=== PATIENT | male | born 1965 | race Caucasian/White ===

== ENCOUNTER 2017-03-26 13:29 | Inpatient (IN) | payer OTHER ==
--- NOTE | 2017-03-26 13:52 | HP ---
Psychiatrist Admission - Data Date of interview: 03/26/17 Admission source: [address] [place] [address] Identifying data: This is the second [facility] admission for this 52 years old single male, unemployed on SSI, domiciled Medical History: Significant for hepatitis c and history of treatment for syphylis and surgery for appendectomy in 1999. Smokes cigarettes 1.5ppd Psychiatric History: Reports that years ago, he saw a psychiatrist at [facility] because of depression and suicidal ideations in the context of drug use. Claims that he was prescribed Remeron at the time. In 2013, he saw a psychiatrist at [facility], was diagnosed with PTSD, MDD and Anxiety and prescribed Seroquel 200 mg, Klonopin 2 mg and Zoloft 200 mg. Reports that he took these medications on & off till May 2016 when he was incarcerated in [facility]. Reports that he was released from there last week. Of notehe said that he was prescribed these medications at [facility] but did not take them. Denies history of previous hospitalization but claims to have had 2 previous suicidal attempts by overdose on drug and medications. At present, reports feeling "contempt" but sleeping poorly. He is not willing to take any medication including medication for insomnia Physical/Sexual Abuse/Trauma History: Denies history of physical, sexual abuse. He was reluctant to answer questions concerning DV or criminal history Allergies/Adverse Reactions: Allergies Allergy/AdvReac Type Severity Reaction Status Date / Time No Known Allergies Allergy Verified 03/21/17 18:45 Date of last physical exam: 03/19/17 Concur with the findings of this exam: Yes - Substance Abuse/Tx History Hx Alcohol Use: Yes Hx Substance Use: Yes Substance Use Type: Alcohol (Started drinking alcohol at age 19, consumes one pint of vodka & 8x 24oz of beer daily. Last drank on 03/21/17), Cocaine (Started smoking crack cocaine atage 19, consumes more than 3 grams daily. Last smoked on 03/21/17) Hx Substance Use Treatment: Yes (6 previous inpt detox & one inpt rehab admission @ [facility]) Mental Status Exam - Mental Status Exam Alert and Oriented to: Time, Place, Person Cognitive Function: Fair Patient Appearance: Well Groomed Mood: Hopeful, Euthymic Affect: Normal Range Speech Pattern: Clear Voice Loudness: Normal Thought Process: Intact, Goal Oriented Thought Disorder: Not Present Hallucinations: Denies Suicidal Ideation: Denies Homicidal Ideation: Denies Insight/Judgement: Fair Sleep: Poorly Appetite: Good Muscle strength/Tone: Normal Gait/Station: Normal Psychiatric Findings - Problem List ([place] 1, 2,3) (1) Alcohol dependence Current Visit: No Status: Active (2) Cocaine dependence Current Visit: Yes Status: Acute (3) Nicotine dependence Current Visit: No Status: Acute Qualifiers: (4) PTSD (post-traumatic stress disorder) Current Visit: No Status: Chronic (5) Substance-induced sleep disorder Current Visit: Yes Status: Acute (6) S/P appendectomy Current Visit: No Status: Resolved - Initial Treatment Plan Initial Treatment Plan: Monitor progress
[2017-03-26 13:54] VITALS: BMI 23.6
[2017-03-26] MEDS ORDERED: NICOTINE POLACRILEX 2 MG GUM BUC PRN (14:58)
[2017-03-26] MEDS ORDERED: LOPERAMIDE HCL 2 MG CAPSULE PO PRN (14:58)
[2017-03-26] MEDS ORDERED: hydrOXYzine PAMOATE 25 MG CAPSULE (FP) PO PRN (14:58)
[2017-03-26] MEDS ORDERED: P-EPHED 60MG/TRIPROLIDI 2.5MG TABLET PO PRN (14:58)
[2017-03-26] MEDS ORDERED: MAG HYDROX/AL HYDROX/SIMETH 30 ML UNIT-DOSE CUP PO PRN (14:58)
[2017-03-26] MEDS ORDERED: MAGNESIUM HYDROX 2400MG/30ML ORAL SUSPENSION 30 ML CUP PO PRN (14:58)
[2017-03-26] MEDS ORDERED: guaiFENesin/D-METHORPHAN HB 10 ML UNIT-DOSE CUPS PO PRN (14:58)
[2017-03-26] MEDS ORDERED: MAGNESIUM CITRATE 300 ML BOTTLE PO PRN (14:58)
[2017-03-26] MEDS ORDERED: MENTHOL/PHENOL 1 EACH UD MM PRN (14:58)
--- NOTE | 2017-03-26 15:04 | HP ---
[facility] Rehab Assess/Revision - Admission History Admitted to Rehab from: [facility] Date of Admission to Rehab: 03/26/17 - Vital signs Vital Signs: Vital Signs Period Temp Pulse Resp BP Sys/Patel Pulse Ox Last 24 Hr 98.8 F 76 19 114/62 - Findings Detox History & Physical reviewed: Yes Concur with findings: Yes Comments/Additional Findings: for rehab as protocol Inpatient Rehab Admission - Initial Determination Are CD services needed?: Yes Free of communicable disease: Yes Not in need of hospitalization: Yes - Rehab Admission Criteria Previous failed treatment: Yes Poor recovery environment: Yes Patient is meeting Inpatient Rehab admission criteria:: Yes
[2017-03-26] MEDS: AMOX TR/POT CLAV 875MG/125MG TABLETS (FP) PO SCH (16:53)
[2017-03-26] MEDS: THIAMINE HCL 100 MG TABLET (FP) PO SCH (21:39)
[2017-03-27] MEDS: AMOX TR/POT CLAV 875MG/125MG TABLETS (FP) PO SCH ×2 (07:49→17:35)
[2017-03-27] MEDS: PRENATAL VITAMINS W/ FOLIC ACID TABLET (FP) PO SCH (10:44)
[2017-03-27] MEDS: NICOTINE 21 MG/24 HOURS TOPICAL PATCH TD SCH (10:44)
[2017-03-27] MEDS: THIAMINE HCL 100 MG TABLET (FP) PO SCH (22:09)
[2017-03-28] MEDS: AMOX TR/POT CLAV 875MG/125MG TABLETS (FP) PO SCH ×2 (07:17→17:28)
[2017-03-28] MEDS: PRENATAL VITAMINS W/ FOLIC ACID TABLET (FP) PO SCH (10:29)
[2017-03-28] MEDS: NICOTINE 21 MG/24 HOURS TOPICAL PATCH TD SCH (10:29)
[2017-03-28] MEDS: ACETAMINOPHEN 325 MG TABLET (FP) PO PRN ×2 (11:02→19:56)
[2017-03-28] MEDS: THIAMINE HCL 100 MG TABLET (FP) PO SCH (22:11)
[2017-03-29] MEDS: PRENATAL VITAMINS W/ FOLIC ACID TABLET (FP) PO SCH (10:49)
[2017-03-29] MEDS: NICOTINE 21 MG/24 HOURS TOPICAL PATCH TD SCH (10:50)
[2017-03-29] MEDS: THIAMINE HCL 100 MG TABLET (FP) PO SCH (22:14)
[2017-03-30] MEDS: PRENATAL VITAMINS W/ FOLIC ACID TABLET (FP) PO SCH (10:13)
[2017-03-30] MEDS: NICOTINE 21 MG/24 HOURS TOPICAL PATCH TD SCH (10:14)
[2017-03-30] MEDS: THIAMINE HCL 100 MG TABLET (FP) PO SCH (21:01)
[2017-03-31] MEDS: NICOTINE 21 MG/24 HOURS TOPICAL PATCH TD SCH (10:14)
[2017-03-31] MEDS: PRENATAL VITAMINS W/ FOLIC ACID TABLET (FP) PO SCH (10:14)
[2017-03-31] MEDS: ACETAMINOPHEN 325 MG TABLET (FP) PO PRN (18:52)
[2017-03-31] MEDS: THIAMINE HCL 100 MG TABLET (FP) PO SCH (22:21)
[2017-04-01] MEDS: NICOTINE 21 MG/24 HOURS TOPICAL PATCH TD SCH (10:22)
[2017-04-01] MEDS: PRENATAL VITAMINS W/ FOLIC ACID TABLET (FP) PO SCH (10:22)
[2017-04-01] MEDS: THIAMINE HCL 100 MG TABLET (FP) PO SCH (22:13)
[2017-04-02] MEDS: NICOTINE 21 MG/24 HOURS TOPICAL PATCH TD SCH (10:12)
[2017-04-02] MEDS: PRENATAL VITAMINS W/ FOLIC ACID TABLET (FP) PO SCH (10:12)
[2017-04-02] MEDS: THIAMINE HCL 100 MG TABLET (FP) PO SCH (22:15)
[2017-04-03] MEDS: PRENATAL VITAMINS W/ FOLIC ACID TABLET (FP) PO SCH (10:39)
[2017-04-03] MEDS: NICOTINE 21 MG/24 HOURS TOPICAL PATCH TD SCH (10:39)
[2017-04-03] MEDS: THIAMINE HCL 100 MG TABLET (FP) PO SCH (22:23)
[2017-04-04] MEDS: NICOTINE 21 MG/24 HOURS TOPICAL PATCH TD SCH (10:00)
[2017-04-04] MEDS: PRENATAL VITAMINS W/ FOLIC ACID TABLET (FP) PO SCH (10:00)
[2017-04-04] MEDS: ACETAMINOPHEN 325 MG TABLET (FP) PO PRN (11:45)
[2017-04-04] MEDS: THIAMINE HCL 100 MG TABLET (FP) PO SCH (22:15)
[2017-04-05] MEDS: NICOTINE 21 MG/24 HOURS TOPICAL PATCH TD SCH (10:07)
[2017-04-05] MEDS: PRENATAL VITAMINS W/ FOLIC ACID TABLET (FP) PO SCH (10:07)
[2017-04-05] MEDS: IBUPROFEN 400 MG TABLET (FP) PO PRN (11:43)
[2017-04-05] MEDS: THIAMINE HCL 100 MG TABLET (FP) PO SCH (21:48)
[2017-04-05] MEDS: ACETAMINOPHEN 325 MG TABLET (FP) PO PRN (21:48)
[2017-04-06] MEDS: NICOTINE 21 MG/24 HOURS TOPICAL PATCH TD SCH (10:06)
[2017-04-06] MEDS: PRENATAL VITAMINS W/ FOLIC ACID TABLET (FP) PO SCH (10:06)
[2017-04-06] MEDS: IBUPROFEN 400 MG TABLET (FP) PO PRN (15:24)
[2017-04-06] MEDS: THIAMINE HCL 100 MG TABLET (FP) PO SCH (21:51)
[2017-04-07] MEDS: PRENATAL VITAMINS W/ FOLIC ACID TABLET (FP) PO SCH (10:19)
[2017-04-07] MEDS: NICOTINE 21 MG/24 HOURS TOPICAL PATCH TD SCH (10:19)
[2017-04-07] MEDS: THIAMINE HCL 100 MG TABLET (FP) PO SCH (22:13)
[2017-04-07] MEDS: IBUPROFEN 400 MG TABLET (FP) PO PRN (22:43)
[2017-04-08] MEDS: NICOTINE 21 MG/24 HOURS TOPICAL PATCH TD SCH (09:58)
[2017-04-08] MEDS: PRENATAL VITAMINS W/ FOLIC ACID TABLET (FP) PO SCH (09:58)
[2017-04-08] MEDS: ACETAMINOPHEN 325 MG TABLET (FP) PO PRN (12:01)
[2017-04-08] MEDS: THIAMINE HCL 100 MG TABLET (FP) PO SCH (22:14)
[2017-04-09] MEDS: ACETAMINOPHEN 325 MG TABLET (FP) PO PRN (09:01)
[2017-04-09] MEDS: PRENATAL VITAMINS W/ FOLIC ACID TABLET (FP) PO SCH (10:10)
[2017-04-09] MEDS: NICOTINE 21 MG/24 HOURS TOPICAL PATCH TD SCH (10:10)
[2017-04-09] MEDS: THIAMINE HCL 100 MG TABLET (FP) PO SCH (21:54)
[2017-04-10] MEDS: NICOTINE 21 MG/24 HOURS TOPICAL PATCH TD SCH (10:01)
[2017-04-10] MEDS: PRENATAL VITAMINS W/ FOLIC ACID TABLET (FP) PO SCH (10:01)
[2017-04-10] MEDS: THIAMINE HCL 100 MG TABLET (FP) PO SCH (21:55)
[2017-04-11] MEDS: NICOTINE 21 MG/24 HOURS TOPICAL PATCH TD SCH (10:23)
[2017-04-11] MEDS: PRENATAL VITAMINS W/ FOLIC ACID TABLET (FP) PO SCH (10:24)
[2017-04-11] MEDS: ACETAMINOPHEN 325 MG TABLET (FP) PO PRN (13:31)
[2017-04-11] MEDS: THIAMINE HCL 100 MG TABLET (FP) PO SCH (23:12)
[2017-04-12] MEDS: NICOTINE 21 MG/24 HOURS TOPICAL PATCH TD SCH (10:01)
[2017-04-12] MEDS: PRENATAL VITAMINS W/ FOLIC ACID TABLET (FP) PO SCH (10:01)
[2017-04-12] MEDS: THIAMINE HCL 100 MG TABLET (FP) PO SCH (22:09)
[2017-04-13] MEDS: PRENATAL VITAMINS W/ FOLIC ACID TABLET (FP) PO SCH (10:13)
[2017-04-13] MEDS: NICOTINE 21 MG/24 HOURS TOPICAL PATCH TD SCH (10:13)
[2017-04-13] MEDS: ACETAMINOPHEN 325 MG TABLET (FP) PO PRN (14:01)
[2017-04-13] MEDS: THIAMINE HCL 100 MG TABLET (FP) PO SCH (22:21)
[2017-04-14] MEDS: ACETAMINOPHEN 325 MG TABLET (FP) PO PRN ×2 (08:25→19:15)
[2017-04-14] MEDS: PRENATAL VITAMINS W/ FOLIC ACID TABLET (FP) PO SCH (10:05)
[2017-04-14] MEDS: NICOTINE 21 MG/24 HOURS TOPICAL PATCH TD SCH (10:05)
[2017-04-14] MEDS: THIAMINE HCL 100 MG TABLET (FP) PO SCH (21:48)
[2017-04-15] MEDS: PRENATAL VITAMINS W/ FOLIC ACID TABLET (FP) PO SCH (10:16)
[2017-04-15] MEDS: NICOTINE 21 MG/24 HOURS TOPICAL PATCH TD SCH (10:16)
[2017-04-15] MEDS: ACETAMINOPHEN 325 MG TABLET (FP) PO PRN (16:02)
[2017-04-15] MEDS: THIAMINE HCL 100 MG TABLET (FP) PO SCH (22:01)
[2017-04-16] MEDS: NICOTINE 21 MG/24 HOURS TOPICAL PATCH TD SCH (10:07)
[2017-04-16] MEDS: PRENATAL VITAMINS W/ FOLIC ACID TABLET (FP) PO SCH (10:07)
[2017-04-16] MEDS: ACETAMINOPHEN 325 MG TABLET (FP) PO PRN ×2 (11:11→18:12)
--- NOTE | 2017-04-16 15:51 | PN ---
Psychiatric Progress Note Vital Signs: Vital Signs Period Temp Pulse Resp BP Sys/Patel Pulse Ox Last 24 Hr 98.3 F 59 18-18 110/62 Date of Session: 04/16/17 Chief Complaint:: Discharge visit Current Medications: Active Medications Generic Name Dose Route Start Last Admin Trade Name Freq PRN Reason Stop Dose Admin Acetaminophen 650 mg 03/26/17 14:58 04/16/17 11:11 Tylenol - PO 650 mg Q4H PRN Administration FEVER OR PAIN Al Hydroxide/Mg Hydroxide 30 ml 03/26/17 14:58 Mylanta Oral Suspension - PO Q6H PRN DYSPEPSIA Eucalyptus/Menthol/Phenol/Sorbitol 1 each 03/26/17 14:58 Cepastat Lozenge - MM Q4H PRN SORE THROAT Guaifenesin 10 ml 03/26/17 14:58 Robitussin Dm - PO Q6H PRN COUGH Hydroxyzine Pamoate 25 mg 03/26/17 14:58 Vistaril - PO Q4H PRN AGITATION Ibuprofen 400 mg 03/26/17 14:58 04/07/17 22:43 Motrin - PO 400 mg Q6H PRN Administration PAIN Loperamide HCl 4 mg 03/26/17 14:58 Imodium - PO Q6H PRN DIARRHEA Magnesium Citrate 300 ml 03/26/17 14:58 Citroma - PO Q48H PRN CONSTIPATION Magnesium Hydroxide 30 ml 03/26/17 14:58 Milk Of Magnesia - PO DAILY PRN CONSTIPATION Nicotine 21 mg 03/27/17 10:00 04/16/17 10:07 Nicoderm Patch - TD Not Given DAILY CRYSTAL Nicotine Polacrilex 2 mg 03/26/17 14:58 Nicorette Gum - BUC Q2H PRN NICOTINE REPLACEMENT RX Multivit/Folic Acid/Iron 1 tab 03/27/17 10:00 04/16/17 10:07 Vitamins ([facility]) - PO Not Given DAILY CRYSTAL Pseudoephedrine/Triprolidine 1 combo 03/26/17 14:58 Actifed - PO TID PRN NASAL CONGESTION Thiamine HCl 100 mg 03/26/17 22:00 04/15/17 22:01 Vitamin B1 - PO Not Given HS CRYSTAL Current Side Effect: No Lab tests ordered: No Lab tests reviewed: Yes Provider note:: [place] Total face to face time:: 30 Psychiatric Treatment Plan - Problem List (1) Cocaine dependence Current Visit: Yes (2) Substance-induced sleep disorder Current Visit: Yes (3) Alcohol dependence Current Visit: Yes (4) Nicotine dependence Current Visit: Yes Qualifiers:
[2017-04-16] MEDS: THIAMINE HCL 100 MG TABLET (FP) PO SCH (21:46)
[2017-04-16] MEDS: IBUPROFEN 400 MG TABLET (FP) PO PRN (23:06)
[2017-04-17 06:44] VITALS: BP 106/66; PULSE 86; TEMP 97.4
[2017-04-17] MEDS: PRENATAL VITAMINS W/ FOLIC ACID TABLET (FP) PO SCH (09:51)
[2017-04-17] MEDS: NICOTINE 21 MG/24 HOURS TOPICAL PATCH TD SCH (09:51)
== END 2017-04-17 10:00 | disposition home or self-care (01) | DRG 772 ==
LOC: YASAS 13:29 → Y3W 13:32
PROVIDERS: ADMIT Psychiatry & Neurology Psychiatry; ATTEND Psychiatry & Neurology Psychiatry
PROC: HZ42ZZZ Group Counseling for Substance Abuse Treatment, Cognitive-Behavioral (ICD-10-PCS; principal; 2017-03-26)
DX: F10.20 Alcohol dependence, uncomplicated (principal); F14.20 Cocaine dependence, uncomplicated; F17.210 Nicotine dependence, cigarettes, uncomplicated; F19.282 Other psychoactive substance dependence with psychoactive substance-induced sleep disorder; F43.10 Post-traumatic stress disorder, unspecified; Z86.79 Personal history of other diseases of the circulatory system; Z90.89 Acquired absence of other organs; Z87.438 Personal history of other diseases of male genital organs

== ENCOUNTER 2018-05-11 13:07 | Inpatient (IN) | payer OTHER ==
[2018-05-11 13:58] VITALS: BMI 22.2
--- NOTE | 2018-05-11 15:17 | HP ---
CIWA Score Nausea/Vomitin Muscle Tremors: 2 Anxiety: 2 Agitation: 2 Paroxysmal Sweats: 1-Minimal Palms Moist Orientation: 0-Oriented Tacttile Disturbances: 1-Very Mild Itch/Numbness Auditory Disturbances: 1-Very Mild Visual Disturbances: 0-None Headache: 2-Mild CIWA-Ar Total Score: 13 - Admission Criteria [facility] Guidelines: Admission for Medically Managed Detox: Requires at least one of the followin. CIWA greater than 12 2. Seizures within the past 24 hours 3. Delirium tremens within the past 24 hours 4. Hallucinations within the past 24 hours 5. Acute intervention needed for co occurring medical disorder 6. Acute intervention needed for co occurring psychiatric disorder 7. Severe withdrawal that cannot be handled at a lower level of care (continued vomiting, continued diarrhea, abnormal vital signs) requiring intravenous medication and/or fluids 8. Patient presents the following: CIWA greater than 12 Admission Criteria Met: Admission criteria met Admission ROS [facility] - HPI Chief Complaint: i need help to stop drinking alcohol,cocaine Allergies/Adverse Reactions: Allergies Allergy/AdvReac Type Severity Reaction Status Date / Time No Known Allergies Allergy Verified 05/11/18 14:29 History of Present Illness: this 53 years old male with alcohol and cocaine dependence,seeking detox, withdrawal symptom,last detox [facility] 03/21/17 to 03/26/17,rehab 03/26/17 to syncope type 2 dm no med nicotine dependence positive ppd depression no med Exam Limitations: No Limitations - Ebola screening Have you traveled outside of the country in the last 21 days: No (N) Have you had contact with anyone from an Ebola affected area: No Have you been sick,other than usual withdrawal symptoms: No Do you have a fever: No - Review of Systems Constitutional: Loss of Appetite, Malaise, Night Sweats, Changes in sleep, Weakness, Unintentional Wgt. Loss EENT: reports: Nose Congestion Respiratory: reports: No Symptoms reported Cardiac: reports: No Symptoms Reported GI: reports: Nausea, Poor Appetite, Abdominal cramping : reports: No Symptoms Reported Musculoskeletal: reports: Back Pain, Muscle Pain Integumentary: reports: Dryness Endocrine: reports: No Symptoms Reported, Other (type 2 dm no med) Hematology: reports: No Symptoms Reported Psychiatric: reports: No Sypmtoms Reported, Judgement Intact, Mood/Affect Appropiate, Orientated x3, Anxious, Depressed (no med) Patient History - Patient Medical History Hx Anemia: No Hx Asthma: No Hx Chronic Obstructive Pulmonary Disease (COPD): No Hx Cancer: No Hx Cardiac Disorders: No Hx Congestive Heart Failure: No Hx Hypertension: No Hx Hypercholesterolemia: No Hx Pacemaker: No HX Cerebrovascular Accident: No Hx Seizures: No Hx Dementia: No Hx Diabetes: Yes (currently not on treatment,diet control) Hx Gastrointestinal Disorders: No Hx Liver Disease: No Hx Genitourinary Disorders: No Hx Sexually Transmitted Disorders: No Hx Renal Disease (ESRD): No Hx Thyroid Disease: No Hx Human Immunodeficiency Virus (HIV): No (last 03/05 negative) Hx Hepatitis C: No Hx Depression: Yes (no med) Hx Suicide Attempt: No Hx Bipolar Disorder: No Hx Schizophrenia: No Other Medical History: no suicidal,no homicidal - Patient Surgical History Past Surgical History: Yes Hx Neurologic Surgery: No Hx Cataract Extraction: No Hx Cardiac Surgery: No Hx Lung Surgery: No Hx Breast Surgery: No Hx Breast Biopsy: No Hx Abdominal Surgery: No Hx Appendectomy: Yes (IN 1999) Hx Cholecystectomy: No Hx Genitourinary Surgery: No Hx Section: No Hx Orthopedic Surgery: No Hx Hysterectomy: No Anesthesia Reaction: No - PPD History Previous Implant?: Yes Documented Results: Positive w/o proof Results: CXR(-)03/2017 PPD to be Administered?: No - Smoking Cessation Smoking history: Current every day smoker Have you smoked in the past 12 months: Yes Aproximately how many cigarettes per day: 20 Cigars Per Day: 0 Hx Chewing Tobacco Use: No Initiated information on smoking cessation: Yes 'Breaking Loose' booklet given: 05/11/18 - Substance & Tx. History Hx Alcohol Use: Yes Hx Substance Use: Yes Substance Use Type: Alcohol, Cocaine Hx Substance Use Treatment: Yes ([facility] 03/21/17 to 03/26/17 to rehab 03/26/17 to 04/17/17 ) - Substances Abused Crack Route: Smoking Frequency: 1-2 times per week Amount used: $100 Age of first use: 35 Date of Last Use: 05/10/18 Alcohol--rum/beer Route: Oral Frequency: Daily Amount used: 1 pt./2-3 6 pks. Age of first use: 19 Date of Last Use: 05/10/18 Family Disease History - Family Disease History Family Disease History: Diabetes: Mother (), Brother, [place]: Father ( throat ), Other: Mother, Sister (NO SISTER) Admission Physical Exam [facility] - Vital Signs Vital Signs: Vital Signs - 24 hr 05/11/18 13:55 Temperature 96.4 F L Pulse Rate 68 Respiratory 19 Rate Blood Pressure 128/63 - Physical General Appearance: Yes: Moderate Distress, Tremorous, Irritable, Sweating, Anxious HEENTM: Yes: Normal ENT Inspection, [place], Pharynx Normal Respiratory: Yes: Lungs Clear, Normal Breath Sounds, No Respiratory Distress Neck: Yes: Within Normal Limits, Supple, Trachea in good position Breast: Yes: Within Normal Limits Cardiology: Yes: Within Normal Limits, Regular Rhythm, Regular Rate, S1, S2 Abdominal: Yes: Within Normal Limits, Normal Bowel Sounds, Non Tender, Soft, Surgical Scar (s/p appendectomy) Genitourinary: Yes: Within Normal Limits Back: Yes: Normal Inspection, Muscle Spasm Musculoskeletal: Yes: Back pain, Muscle Pain Extremities: Yes: Within Normal Limits, Normal Range of Motion, Tremors 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: Yes: datapower developer II-XII NML intact, Fully Oriented, Alert, Motor Strength 5/5 Integumentary: Yes: Dry Lymphatic: Yes: Within Normal Limits - Diagnostic (1) Alcohol dependence with uncomplicated withdrawal Current Visit: No Status: Acute (2) Cocaine dependence Current Visit: No Status: Acute (3) Positive PPD Current Visit: Yes Status: Acute (4) Nicotine dependence Current Visit: No Status: Acute Qualifiers: (5) Weight loss Current Visit: Yes Status: Acute (6) S/P appendectomy Current Visit: Yes Status: Acute Cleared for Admission [facility] - Detox or Rehab [facility] Level of Care: Medically Managed Detox Regimen/Protocol: Librium [facility] Breath Alcohol Content Breath Alcohol Content: 0 Urine Drug Screen - Results Drug Screen Negative: No Urine Drug Screen Results: MARITA-Cocaine
[2018-05-11] MEDS ORDERED: MAGNESIUM HYDROX 2400MG/30ML ORAL SUSPENSION 30 ML CUP PO PRN (15:32)
[2018-05-11] MEDS ORDERED: guaiFENesin/D-METHORPHAN HB 10 ML UNIT-DOSE CUPS PO PRN (15:32)
[2018-05-11] MEDS ORDERED: P-EPHED 60MG/TRIPROLIDI 2.5MG TABLET PO PRN (15:32)
[2018-05-11] MEDS ORDERED: ACETAMINOPHEN 325 MG TABLET (FP) PO PRN (15:32)
[2018-05-11] MEDS ORDERED: MAGNESIUM CITRATE 300 ML BOTTLE PO PRN (15:32)
[2018-05-11] MEDS ORDERED: MAG HYDROX/AL HYDROX/SIMETH 30 ML UNIT-DOSE CUP PO PRN (15:32)
[2018-05-11] MEDS ORDERED: LOPERAMIDE HCL 2 MG CAPSULE PO PRN (15:32)
[2018-05-11] MEDS ORDERED: hydrOXYzine PAMOATE 25 MG CAPSULE (FP) PO PRN (15:32)
[2018-05-11] MEDS ORDERED: chlordiazePOXIDE HCL 25 MG CAPSULE PO PRN (15:32)
[2018-05-11] MEDS ORDERED: MENTHOL/PHENOL 1 EACH UD MM PRN (15:32)
[2018-05-11] MEDS: chlordiazePOXIDE HCL 25 MG CAPSULE PO SCH ×2 (16:36→22:29)
[2018-05-11 17:21] LABS: URINE APPEARANCE CLEAR; URINE BILIRUBIN NEGATIVE (<2.0 mg/dL); URINE COLOR YELLOW; URINE GLUCOSE (UA) NEGATIVE (NEGATIVE); URINE KETONE NEGATIVE (NEGATIVE); URINE LEUK ESTERASE NEGATIVE (NEGATIVE); URINE NITRITE NEGATIVE (NEGATIVE); URINE PROTEIN NEGATIVE (NEGATIVE); URINE UROBILINOGEN 4.0 E.U/dl mg/dL (0.2-1.0)
[2018-05-11] MEDS ORDERED: MELATONIN 5 MG TABLETS PO PRN (22:00)
[2018-05-11] MEDS: THIAMINE HCL 100 MG TABLET (FP) PO SCH (22:29)
[2018-05-12] MEDS: chlordiazePOXIDE HCL 25 MG CAPSULE PO SCH ×4 (06:23→22:29)
[2018-05-12] MEDS: PRENATAL VITAMINS W/ FOLIC ACID TABLET (FP) PO SCH (10:32)
[2018-05-12 11:04] LABS: HEMATOCRIT 43.5 % (35.4-49); HEMOGLOBIN 14.1 GM/dL (11.7-16.9); MCH 29.2 pg (25.7-33.7); MCHC 32.4 g/dl (32.0-35.9); MEAN CELL VOLUME 90.1 fl (80-96); MEAN PLT VOLUME 9.9 fl (7.5-11.1); PLATELET COUNT 233 K/MM3 (134-434); RBC 4.83 M/mm3 (4.00-5.60); RDW 13.6 % (11.9-15.9); WHITE BLOOD COUNT 6.5 K/mm3 (4.0-10.0)
[2018-05-12 11:12] LABS: ALBUMIN 3.5 g/dl (3.4-5.0); ALK PHOS 55 U/L (45-117); ANION GAP 5 MMOL/L (8-16); BILIRUBIN,TOTAL 0.4 mg/dL (0.2-1); BLOOD UREA NITROGEN 19 mg/dL (7-18); CALCIUM 8.8 mg/dL (8.5-10.1); CHLORIDE 108 mmol/L (98-107); CO2 30 mmol/L (21-32); CREATININE 1.1 mg/dL (0.55-1.3); GLUCOSE,RANDOM 86 mg/dL (74-106); POTASSIUM 4.1 mmol/L (3.5-5.1); SGOT/AST 13 U/L (15-37); SGPT/ALT 17 U/L (13-61); SODIUM 143 mmol/L (136-145); TOT PROT 6.1 g/dl (6.4-8.2)
--- NOTE | 2018-05-12 15:19 | PN ---
S CIWA - CIWA Score Nausea/Vomitin Muscle Tremors: 4-Moderate,w/Arms Extend Anxiety: 4-Mod. Anxious/Guarded Agitation: 4-Moderately Restless Paroxysmal Sweats: 3 Orientation: 0-Oriented Tacttile Disturbances: 0-None Auditory Disturbances: 0-None Visual Disturbances: 0-None Headache: 0-None Present CIWA-Ar Total Score: 17 [facility] Progress Note (SOAP) Subjective: Anxious, interrupted sleep Objective: 05/12/18 15:16 Last Vital Signs Temp Pulse Resp BP Pulse Ox 97.4 F L 62 18 97/56 L 05/12/18 13:22 05/12/18 13:22 05/12/18 13:22 05/12/18 13:22 Hypotension noted 97/56 Laboratory Tests 05/11/18 05/11/18 05/12/18 14:54 16:33 07:50 WBC 6.5 RBC 4.83 Hgb 14.1 Hct 43.5 D MCV 90.1 MCH 29.2 MCHC 32.4 RDW 13.6 Plt Count 233 MPV 9.9 Sodium Potassium Chloride Carbon Dioxide Anion Gap BUN Creatinine Creat Clearance w eGFR POC Glucometer 82 Random Glucose Calcium Total Bilirubin AST ALT Alkaline Phosphatase Total Protein Albumin Urine Color Yellow Urine Appearance Clear Urine pH 5.0 Ur Specific [place] 1.017 Urine Protein Negative Urine Glucose (UA) Negative Urine Ketones Negative Urine Blood Negative Urine Nitrite Negative Urine Bilirubin Negative Urine Urobilinogen 4.0 e.u/dl Ur Leukocyte Esterase Negative RPR Titer HIV 1&2 Antibody Screen HIV P24 Antigen 05/12/18 05/12/18 05/12/18 07:50 07:50 08:40 WBC RBC Hgb Hct MCV MCH MCHC RDW Plt Count MPV Sodium 143 Potassium 4.1 Chloride 108 H Carbon Dioxide 30 Anion Gap 5 L BUN 19 H Creatinine 1.1 Creat Clearance w eGFR > 60 POC Glucometer Random Glucose 86 Calcium 8.8 Total Bilirubin 0.4 AST 13 L ALT 17 Alkaline Phosphatase 55 Total Protein 6.1 L Albumin 3.5 Urine Color Urine Appearance Urine pH Ur Specific [place] Urine Protein Urine Glucose (UA) Urine Ketones Urine Blood Urine Nitrite Urine Bilirubin Urine Urobilinogen Ur Leukocyte Esterase RPR Titer Nonreactive HIV 1&2 Antibody Screen Negative HIV P24 Antigen Negative Labs reviewed Assessment: 05/12/18 15:17 Withdrawal symptoms Hypotension noted Plan: Continue detox Hypotension: asymptomatic, encouraged PO water intake
[2018-05-12] MEDS: THIAMINE HCL 100 MG TABLET (FP) PO SCH (22:29)
[2018-05-13] MEDS: chlordiazePOXIDE HCL 25 MG CAPSULE PO SCH ×2 (06:07→10:12)
[2018-05-13] MEDS: PRENATAL VITAMINS W/ FOLIC ACID TABLET (FP) PO SCH (10:12)
[2018-05-13] MEDS: IBUPROFEN 400 MG TABLET (FP) PO PRN ×3 (11:48→22:17)
--- NOTE | 2018-05-13 15:02 | PN ---
S CIWA - CIWA Score Nausea/Vomitin-No Nausea/No Vomiting Muscle Tremors: None Anxiety: 4-Mod. Anxious/Guarded Agitation: 3 Paroxysmal Sweats: No Perspiration Orientation: 0-Oriented Tacttile Disturbances: 2-Mild Itch/Numbness/Burn Auditory Disturbances: 0-None Visual Disturbances: 1-Very Mild Sensitivity Headache: 3-Moderate CIWA-Ar Total Score: 13 S Progress Note (SOAP) Subjective: Body Aches, H/A, Anxious. Objective: PATIENT A & O X 3, OBSERVED AMBULATING ON UNIT. NO ACUTE DISTRESS. 05/13/18 15:02 Vital Signs Temperature 98.4 F 05/13/18 13:30 Pulse Rate 64 05/13/18 13:30 Respiratory Rate 16 05/13/18 13:30 Blood Pressure 99/62 05/13/18 13:30 O2 Sat by Pulse Oximetry (%) Laboratory Tests 05/11/18 05/11/18 05/11/18 14:54 14:55 16:33 WBC RBC Hgb Hct MCV MCH MCHC RDW Plt Count MPV Sodium Potassium Chloride Carbon Dioxide Anion Gap BUN Creatinine Creat Clearance w eGFR POC Glucometer 151 82 Random Glucose Calcium Total Bilirubin AST ALT Alkaline Phosphatase Total Protein Albumin Urine Color Yellow Urine Appearance Clear Urine pH 5.0 Ur Specific [place] 1.017 Urine Protein Negative Urine Glucose (UA) Negative Urine Ketones Negative Urine Blood Negative Urine Nitrite Negative Urine Bilirubin Negative Urine Urobilinogen 4.0 e.u/dl Ur Leukocyte Esterase Negative RPR Titer HIV 1&2 Antibody Screen HIV P24 Antigen 05/12/18 05/12/18 05/12/18 07:50 07:50 07:50 WBC 6.5 RBC 4.83 Hgb 14.1 Hct 43.5 D MCV 90.1 MCH 29.2 MCHC 32.4 RDW 13.6 Plt Count 233 MPV 9.9 Sodium 143 Potassium 4.1 Chloride 108 H Carbon Dioxide 30 Anion Gap 5 L BUN 19 H Creatinine 1.1 Creat Clearance w eGFR > 60 POC Glucometer Random Glucose 86 Calcium 8.8 Total Bilirubin 0.4 AST 13 L ALT 17 Alkaline Phosphatase 55 Total Protein 6.1 L Albumin 3.5 Urine Color Urine Appearance Urine pH Ur Specific [place] Urine Protein Urine Glucose (UA) Urine Ketones Urine Blood Urine Nitrite Urine Bilirubin Urine Urobilinogen Ur Leukocyte Esterase RPR Titer Nonreactive HIV 1&2 Antibody Screen HIV P24 Antigen 05/12/18 08:40 WBC RBC Hgb Hct MCV MCH MCHC RDW Plt Count MPV Sodium Potassium Chloride Carbon Dioxide Anion Gap BUN Creatinine Creat Clearance w eGFR POC Glucometer Random Glucose Calcium Total Bilirubin AST ALT Alkaline Phosphatase Total Protein Albumin Urine Color Urine Appearance Urine pH Ur Specific [place] Urine Protein Urine Glucose (UA) Urine Ketones Urine Blood Urine Nitrite Urine Bilirubin Urine Urobilinogen Ur Leukocyte Esterase RPR Titer HIV 1&2 Antibody Screen Negative HIV P24 Antigen Negative LABS NOTED. Assessment: 05/13/18 15:03 WITHDRAWAL SYMPTOMS. Plan: CONTINUE DETOX. INCREASE DAILY PO FLUID INTAKE.
[2018-05-13] MEDS: chlordiazePOXIDE 5 MG CAPSULE PO SCH ×2 (17:15→22:18)
[2018-05-13] MEDS: THIAMINE HCL 100 MG TABLET (FP) PO SCH (22:18)
[2018-05-14] MEDS: chlordiazePOXIDE 5 MG CAPSULE PO SCH ×2 (06:13→11:33)
[2018-05-14] MEDS: IBUPROFEN 400 MG TABLET (FP) PO PRN ×2 (08:55→22:20)
[2018-05-14] MEDS: PRENATAL VITAMINS W/ FOLIC ACID TABLET (FP) PO SCH (11:33)
--- NOTE | 2018-05-14 11:51 | PN ---
[facility] Progress Note (SOAP) Subjective: feeling better sleep better no tremor less sweat discuss aftercare with staff Objective: 05/14/18 11:50 Vital Signs Temperature 97.1 F L 05/14/18 09:07 Pulse Rate 63 05/14/18 09:07 Respiratory Rate 18 05/14/18 09:07 Blood Pressure 92/56 L 05/14/18 09:07 O2 Sat by Pulse Oximetry (%) Laboratory Last Values WBC 6.5 K/mm3 (4.0-10.0) 05/12/18 07:50 RBC 4.83 M/mm3 (4.00-5.60) 05/12/18 07:50 Hgb 14.1 GM/dL (11.7-16.9) 05/12/18 07:50 Hct 43.5 % (35.4-49) D 05/12/18 07:50 MCV 90.1 fl (80-96) 05/12/18 07:50 MCH 29.2 pg (25.7-33.7) 05/12/18 07:50 MCHC 32.4 g/dl (32.0-35.9) 05/12/18 07:50 RDW 13.6 % (11.9-15.9) 05/12/18 07:50 Plt Count 233 K/MM3 (134-434) 05/12/18 07:50 MPV 9.9 fl (7.5-11.1) 05/12/18 07:50 Sodium 143 mmol/L (136-145) 05/12/18 07:50 Potassium 4.1 mmol/L (3.5-5.1) 05/12/18 07:50 Chloride 108 mmol/L (98-107) H 05/12/18 07:50 Carbon Dioxide 30 mmol/L (21-32) 05/12/18 07:50 Anion Gap 5 MMOL/L (8-16) L 05/12/18 07:50 BUN 19 mg/dL (7-18) H 05/12/18 07:50 Creatinine 1.1 mg/dL (0.55-1.3) 05/12/18 07:50 Creat Clearance w eGFR > 60 (>60) 05/12/18 07:50 POC Glucometer 82 UNITS (80-120) 05/11/18 16:33 Random Glucose 86 mg/dL (74-106) 05/12/18 07:50 Calcium 8.8 mg/dL (8.5-10.1) 05/12/18 07:50 Total Bilirubin 0.4 mg/dL (0.2-1) 05/12/18 07:50 AST 13 U/L (15-37) L 05/12/18 07:50 ALT 17 U/L (13-61) 05/12/18 07:50 Alkaline Phosphatase 55 U/L (45-117) 05/12/18 07:50 Total Protein 6.1 g/dl (6.4-8.2) L 05/12/18 07:50 Albumin 3.5 g/dl (3.4-5.0) 05/12/18 07:50 Urine Color Yellow 05/11/18 14:54 Urine Appearance Clear 05/11/18 14:54 Urine pH 5.0 (5.0-8.0) 05/11/18 14:54 Ur Specific [place] 1.017 (1.010-1.035) 05/11/18 14:54 Urine Protein Negative (NEGATIVE) 05/11/18 14:54 Urine Glucose (UA) Negative (NEGATIVE) 05/11/18 14:54 Urine Ketones Negative (NEGATIVE) 05/11/18 14:54 Urine Blood Negative (NEGATIVE) 05/11/18 14:54 Urine Nitrite Negative (NEGATIVE) 05/11/18 14:54 Urine Bilirubin Negative (<2.0 mg/dL) 05/11/18 14:54 Urine Urobilinogen 4.0 e.u/dl mg/dL (0.2-1.0) 05/11/18 14:54 Ur Leukocyte Esterase Negative (NEGATIVE) 05/11/18 14:54 RPR Titer Nonreactive (NONREACTIVE) 05/12/18 07:50 HIV 1&2 Antibody Screen Negative 05/12/18 08:40 HIV P24 Antigen Negative 05/12/18 08:40 lab noted Assessment: 05/14/18 11:51 mild withdrawal sx Plan: medically supervised detox
[2018-05-14] MEDS: chlordiazePOXIDE HCL 10 MG CAPSULE PO SCH ×2 (17:40→22:18)
--- NOTE | 2018-05-14 18:25 | PN ---
[facility] Progress Note Note: Alert and oriented. Vital Signs 05/14/18 05/14/18 13:49 17:27 Temperature 98.0 F 98.6 F Pulse Rate 59 L 66 Respiratory 18 16 Rate Blood Pressure 91/55 L 86/55 L Decreased B/P. Encouraged increased fluids. Hold Librium. Continue routine monitoring.
[2018-05-14] MEDS: THIAMINE HCL 100 MG TABLET (FP) PO SCH (22:18)
[2018-05-15 06:15] VITALS: BP 97/65; PULSE 57; TEMP 96.2
[2018-05-15] MEDS: chlordiazePOXIDE HCL 10 MG CAPSULE PO SCH (06:30)
--- NOTE | 2018-05-15 11:04 | DS ---
[facility] Detox Discharge Summary Admission Date: 05/11/18 Discharge Date: 05/15/18 - History Present History: Alcohol Dependence, Cocaine Dependence Pertinent Past History: PATIENT COMPLETED DETOX REGIMEN WITHOUT ADVERSE EVENT. PATIENT CLINICALLY STABLE AND DENIES SI/HI. PATIENT ENCOURAGED TO ATTEND GROUP MEETINGS TO PREVENT RELAPSE AND TO FOLLOW UP WITH PCP. PATIENT GIVEN D/C INSTRUCTIONS BY STAFF. - Physical Exam Results Vital Signs: Vital Signs Temperature 96.2 F L 05/15/18 06:14 Pulse Rate 57 L 05/15/18 06:14 Respiratory Rate 18 05/15/18 06:25 Blood Pressure 97/65 05/15/18 06:14 O2 Sat by Pulse Oximetry (%) - Treatment Hospital Course: Detox Protocol Followed, Detoxed Safely, Responded well, Discharged Condition Good, Rehab Referral Accepted - Medication Discharge Medications: Ambulatory Orders Quetiapine Fumarate [Seroquel -] 300 mg PO HS 05/11/18 Sertraline HCl [Zoloft] 100 mg PO DAILY 05/11/18 - AMA Did Patient Leave Against Medical Advice: No
== END 2018-05-15 08:42 | disposition home or self-care (01) | DRG 774 ==
LOC: YASAS 13:07 → Y3N 15:33
PROC: HZ2ZZZZ Detoxification Services for Substance Abuse Treatment (ICD-10-PCS; principal; 2018-05-11)
DX: F10.230 Alcohol dependence with withdrawal, uncomplicated (principal); F14.20 Cocaine dependence, uncomplicated; F17.210 Nicotine dependence, cigarettes, uncomplicated; R76.11 Nonspecific reaction to tuberculin skin test without active tuberculosis; I95.9 Hypotension, unspecified
CPT/HCPCS: 36415; 71046-TC-FY; 80053; 81003; 82962; 85027; 86593; 87389

== ENCOUNTER 2018-05-20 17:58 | Inpatient (IN) | payer OTHER ==
[2018-05-20 19:20] VITALS: BMI 24.1
[2018-05-20] MEDS ORDERED: MELATONIN 5 MG TABLETS PO PRN (22:00)
--- NOTE | 2018-05-20 22:44 | HP ---
CIWA Score - Admission Criteria OASAS Guidelines: Admission for Medically Managed Detox: Requires at least one of the followin. CIWA greater than 12 2. Seizures within the past 24 hours 3. Delirium tremens within the past 24 hours 4. Hallucinations within the past 24 hours 5. Acute intervention needed for co occurring medical disorder 6. Acute intervention needed for co occurring psychiatric disorder 7. Severe withdrawal that cannot be handled at a lower level of care (continued vomiting, continued diarrhea, abnormal vital signs) requiring intravenous medication and/or fluids 8. Admission ROS S - HPI Chief Complaint: States here for rehab for crack/cocaine and alcohol. Allergies/Adverse Reactions: Allergies Allergy/AdvReac Type Severity Reaction Status Date / Time No Known Allergies Allergy Verified 05/20/18 20:31 History of Present Illness: Patient states here for crack/cocaine use disorder. Crack/cocaine use began at age 19. Nicotine use began at age 19. Denies hx seizures or blackouts. Longest length of sobriety 2 years while in-patient. States Hx DM - controlled by diet. Hx: PPD (+). Last CXR wnl. Denies cough or night sweats. Hx: DM states metformin was stopped. Hx Depression and STEVIE. Denies thoughts of harming self or others. Non-compliant w/ medications Patient states that he does not take benzo's, although his u-tox is (+) for benzo and he states the following PDPM report does not apply to him. Search Terms: Steve Reyes, 1965 Search Date: 05/20/2018 11:06:23 PM The Drug Utilization Report below displays all of the controlled substance prescriptions, if any, that your patient has filled in the last twelve months. The information displayed on this report is compiled from pharmacy submissions to the Department, and accurately reflects the information as submitted by the pharmacies. This report was requested by: Charito Khanna | Reference #: [id number] Others' Prescriptions Patient Name: Steve Reyes Date: 1965 Address: [address] [place] [address] Sex: Male Rx Written Rx Dispensed Drug Quantity Days Supply Prescriber Name 05/08/2018 05/08/2018 clonazepam 2 mg tablet 28 28 Luis Leach (SOFTWARE SUPPORT ENGINEER) 04/10/2018 04/10/2018 clonazepam 2 mg tablet 28 Alek Nicholson MD 03/12/2018 03/12/2018 clonazepam 2 mg tablet 28 28 Tigzach, Luis A (SOFTWARE SUPPORT ENGINEER) 02/12/2018 02/12/2018 clonazepam 2 mg tablet 28 28 Tigenoah, Luis A (SOFTWARE SUPPORT ENGINEER) 01/15/2018 01/15/2018 clonazepam 2 mg tablet 28 28 Seb Rosas Robinson CLINE 12/18/2017 12/18/2017 clonazepam 2 mg tablet 28 28 Tigenoah, Luis A (SOFTWARE SUPPORT ENGINEER) 11/20/2017 11/20/2017 clonazepam 2 mg tablet 28 28 Tigenoamy, Luis A (SOFTWARE SUPPORT ENGINEER) 10/23/2017 10/23/2017 clonazepam 2 mg tablet 28 28 Tigenoah, Luis A (SOFTWARE SUPPORT ENGINEER) 09/22/2017 09/24/2017 clonazepam 2 mg tablet 30 30 Tigenoah, Luis A (SOFTWARE SUPPORT ENGINEER) 08/25/2017 08/25/2017 clonazepam 2 mg tablet 30 30 Tigenoamy, Luis A (SOFTWARE SUPPORT ENGINEER) Patient Name: Steve Reyes Date: 1965 Address: [address] [place] [address] Sex: Male Rx Written Rx Dispensed Drug Quantity Days Supply Prescriber Name 07/25/2017 07/25/2017 clonazepam 2 mg tablet 30 30 Luis Alfredo Shukla 06/25/2017 06/25/2017 clonazepam 2 mg tablet 30 30 Hany, Luis Guy (SOFTWARE SUPPORT ENGINEER) 05/28/2017 05/28/2017 clonazepam 0.5 mg tablet 60 30 GaylaLuis Alfredo Exam Limitations: No Limitations - Ebola screening Have you traveled outside of the country in the last 21 days: No Have you had contact with anyone from an Ebola affected area: No Have you been sick,other than usual withdrawal symptoms: No Do you have a fever: No - Review of Systems Constitutional: No Symptoms Reported EENT: reports: Blurred Vision Respiratory: reports: No Symptoms reported Cardiac: reports: No Symptoms Reported GI: reports: No Symptoms Reported : reports: No Symptoms Reported Musculoskeletal: reports: Back Pain (Chronic LBP - sharp "8". Increases when lays down. Improves w/ moves around.) Integumentary: reports: No Symptoms Reported Neuro: reports: Headache (Occ migraine headaches w/ light sensitivity.) Endocrine: reports: Increased Thirst Hematology: reports: No Symptoms Reported Psychiatric: reports: Judgement Intact, Orientated x3, Agitated, Anxious, Depressed (Denies thoughts of harming self or others. Non-compliant w/ medications) Patient History - Patient Medical History Hx Anemia: No Hx Asthma: No Hx Chronic Obstructive Pulmonary Disease (COPD): No Hx Cancer: No Hx Cardiac Disorders: No Hx Congestive Heart Failure: No Hx Hypertension: No Hx Hypercholesterolemia: No Hx Pacemaker: No HX Cerebrovascular Accident: No Hx Seizures: No Hx Dementia: No Hx Diabetes: Yes (currently not on treatment,diet control) Hx Gastrointestinal Disorders: No Hx Liver Disease: No Hx Genitourinary Disorders: No Hx Sexually Transmitted Disorders: No Hx Renal Disease (ESRD): No Hx Thyroid Disease: No Hx Human Immunodeficiency Virus (HIV): No (last 03/05 negative) Hx Hepatitis C: No Hx Depression: Yes (no med) Hx Suicide Attempt: No Hx Bipolar Disorder: No Hx Schizophrenia: No - Patient Surgical History Past Surgical History: Yes Hx Neurologic Surgery: No Hx Cataract Extraction: No Hx Cardiac Surgery: No Hx Lung Surgery: No Hx Breast Surgery: No Hx Breast Biopsy: No Hx Abdominal Surgery: No Hx Appendectomy: Yes (IN 1999) Hx Cholecystectomy: No Hx Genitourinary Surgery: No Hx Section: No Hx Orthopedic Surgery: No Hx Hysterectomy: No Anesthesia Reaction: No - PPD History Previous Implant?: Yes Results: CXR(-) 05/13/18 PPD to be Administered?: No - Smoking Cessation Smoking history: Current every day smoker Have you smoked in the past 12 months: Yes Aproximately how many cigarettes per day: 20 Cigars Per Day: 0 Hx Chewing Tobacco Use: No Initiated information on smoking cessation: Yes 'Breaking Loose' booklet given: 05/20/18 - Substance & Tx. History Hx Alcohol Use: Yes (Denies hx withdrawal symptoms) Hx Substance Use: Yes Substance Use Type: Cocaine Hx Substance Use Treatment: Yes (detox, rehab) - Substances Abused Crack Route: Smoking Frequency: 3-6 times per week Amount used: $100 daily Age of first use: 19 Date of Last Use: 05/18/18 Family Disease History - Family Disease History Family Disease History: Diabetes: Mother (), Brother, [place]: Father ( throat ), Other: Mother, Sister (NO SISTER) Admission Physical Exam [facility] - Vital Signs Vital Signs: Vital Signs - 24 hr 05/20/18 19:18 Temperature 99 F Pulse Rate 70 Respiratory 18 Rate Blood Pressure 120/70 - Physical General Appearance: Yes: No Apparent Distress, Appropriately Dressed, Anxious HEENTM: Yes: EOMI, Hearing grossly Normal, Normocephalic, LE[place], Pharynx Normal Respiratory: Yes: Lungs Clear, Normal Breath Sounds, No Respiratory Distress Neck: Yes: No masses,lesions,Nodules, Supple Breast: Yes: Breast Exam Deferred Cardiology: Yes: Regular Rhythm, Regular Rate, S1, S2 Abdominal: Yes: Normal Bowel Sounds, Flat, Soft Genitourinary: Yes: Within Normal Limits Back: Yes: Normal Inspection Musculoskeletal: Yes: full range of Motion, Gait Steady Extremities: Yes: Normal Capillary Refill, Normal Inspection, Normal Range of Motion, Non-Tender 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: Yes: supervisor adult education II-XII NML intact, Fully Oriented, Alert, Motor Strength 5/5, Normal Mood/Affect, Normal Response Integumentary: Yes: Normal Color, Dry (Decreased skin turgor), Warm Lymphatic: Yes: Within Normal Limits - Diagnostic (1) Alcohol abuse, in remission Current Visit: Yes Status: Acute (2) Cocaine dependence, uncomplicated Current Visit: Yes Status: Chronic (3) Nicotine dependence Current Visit: Yes Status: Chronic Qualifiers: Nicotine product type: cigarettes Substance use status: uncomplicated Qualified Code(s): F17.210 - Nicotine dependence, cigarettes, uncomplicated (4) Positive PPD Current Visit: Yes Status: Chronic Comment: Last CXR 05/13/18 - Neg (5) Hx of diabetes mellitus Current Visit: Yes Status: Acute Cleared for Admission [facility] - Detox or Rehab Claeared for Rehab Admission: Yes [facility] Breath Alcohol Content Breath Alcohol Content: 0 Urine Drug Screen - Results Drug Screen Negative: No Urine Drug Screen Results: MARITA-Cocaine, BZO-Benzodiazepines Inpatient Rehab Admission - Initial Determination Are CD services needed?: Yes Free of communicable disease: Yes Not in need of hospitalization: Yes - Rehab Admission Criteria Previous failed treatment: Yes Poor recovery environment: Yes Comorbidities: Yes Lacks judgement: No Patient is meeting Inpatient Rehab admission criteria:: Yes
[2018-05-20] MEDS ORDERED: LOPERAMIDE HCL 2 MG CAPSULE PO PRN (23:22)
[2018-05-20] MEDS ORDERED: MAGNESIUM HYDROX 2400MG/30ML ORAL SUSPENSION 30 ML CUP PO PRN (23:22)
[2018-05-20] MEDS ORDERED: hydrOXYzine PAMOATE 50 MG CAPSULE (FP) PO PRN (23:22)
[2018-05-20] MEDS ORDERED: MAG HYDROX/AL HYDROX/SIMETH 30 ML UNIT-DOSE CUP PO PRN (23:22)
[2018-05-20] MEDS ORDERED: ACETAMINOPHEN 325 MG TABLET (FP) PO PRN (23:22)
[2018-05-20] MEDS ORDERED: NICOTINE POLACRILEX 2 MG GUM BC PRN (23:22)
[2018-05-20] MEDS ORDERED: MAGNESIUM CITRATE 300 ML BOTTLE PO PRN (23:22)
[2018-05-20] MEDS ORDERED: MENTHOL/PHENOL 1 EACH UD MM PRN (23:22)
[2018-05-20] MEDS ORDERED: guaiFENesin 200 MG/10 ML 10 ML UNIT-DOSE CUPS PO PRN (23:24)
[2018-05-20] MEDS ORDERED: PSEUDOEPHEDRINE HCL 60 MG TABLET PO PRN (23:25)
--- NOTE | 2018-05-21 07:09 | HP ---
Psychiatrist Admission - Data Date of interview: 05/21/18 Admission source: Self-referred Identifying data: This is the third [facility] admission for this 53 years old single male, unemployed on SSI, domiciled Medical History: Significant for hepatitis C and history of treatment for syphylis and surgery for appendectomy in 1999. Smokes cigarettes 1.5ppd Psychiatric History: Reports history of previous psychiatric outpatient treatment at [facility] years ago for depression and SI in the context of drug use and at [facility] in 2013 for PTSD, MDD and anxiety. Currently reports seeing a psychiatrist at [facility] and he is prescribed Zoloft 100 mg/ day and Seroquel 300 mg/hs. Told writer producer that he has not been taking these medications and does not want to take them during that admission. Denies previous psychiatric hospitalization but admits to previous suicidal attempts. At present, reports feeling and sleeping well Physical/Sexual Abuse/Trauma History: Denies history of physical, sexual abuse. He was reluctant to answer questions concerning DV or criminal history Vital Signs: Vital Signs - 24 hr 05/20/18 05/21/18 19:18 03:30 Temperature 99 F Pulse Rate 70 Respiratory 18 16 Rate Blood Pressure 120/70 Allergies/Adverse Reactions: Allergies Allergy/AdvReac Type Severity Reaction Status Date / Time No Known Allergies Allergy Verified 05/20/18 20:31 Date of last physical exam: 05/20/18 Concur with the findings of this exam: Yes - Substance Abuse/Tx History Hx Substance Use: Yes Substance Use Type: Cocaine (Started smoking crack cocaine at age 19, consumes $ 100 worth 3-6 timesweekly. Last smoked on 05/18/19) Hx Substance Use Treatment: Yes (7 previous inpt detox & 2 inpt rehab admissions @ [facility]) Mental Status Exam - Mental Status Exam Alert and Oriented to: Time, Place, Person Cognitive Function: Fair Patient Appearance: Disheveled Mood: Hopeful, Euthymic Affect: Appropriate Speech Pattern: Clear Voice Loudness: Normal Thought Process: Intact, Goal Oriented Hallucinations: Denies Suicidal Ideation: Denies Homicidal Ideation: Denies Insight/Judgement: Fair Sleep: Well Appetite: Good Muscle strength/Tone: Normal Gait/Station: Normal Psychiatric Findings - Problem List ([place] 1, 2,3) (1) Cocaine dependence Current Visit: Yes Status: Acute (2) Nicotine dependence Current Visit: Yes Status: Chronic Qualifiers: Nicotine product type: cigarettes Substance use status: uncomplicated Qualified Code(s): F17.210 - Nicotine dependence, cigarettes, uncomplicated (3) PTSD (post-traumatic stress disorder) Current Visit: No Status: Chronic (4) Positive PPD Current Visit: Yes Status: Chronic Comment: Last CXR 05/13/18 - Neg - Initial Treatment Plan Initial Treatment Plan: Monitor progress
[2018-05-21] MEDS: PRENATAL VITAMINS W/ FOLIC ACID TABLET (FP) PO SCH (10:33)
[2018-05-21] MEDS: NICOTINE 21 MG/24 HOURS TOPICAL PATCH TD SCH (10:33)
[2018-05-21] MEDS: IBUPROFEN 400 MG TABLET (FP) PO PRN ×2 (15:25→21:40)
--- NOTE | 2018-05-21 15:53 | PN ---
[facility] Progress Note Note: BGM 101. PATIENT DENIES HX OF DM. EXTERNAL MEDICATION HX SHOWS NO DM MEDICATIONS. WILL D/C BGM AND CHANGE GLUCERNA TO ENSURE. CONTINUE TO MONITOR.
[2018-05-21 16:45] LABS: URINE APPEARANCE CLEAR; URINE BILIRUBIN NEGATIVE (<2.0 mg/dL); URINE COLOR YELLOW; URINE GLUCOSE (UA) NEGATIVE (NEGATIVE); URINE KETONE TRACE (NEGATIVE); URINE LEUK ESTERASE NEGATIVE (NEGATIVE); URINE NITRITE NEGATIVE (NEGATIVE); URINE PROTEIN NEGATIVE (NEGATIVE)
[2018-05-21] MEDS: THIAMINE HCL 100 MG TABLET (FP) PO SCH (21:38)
[2018-05-22] MEDS: NICOTINE 21 MG/24 HOURS TOPICAL PATCH TD SCH (10:03)
[2018-05-22] MEDS: PRENATAL VITAMINS W/ FOLIC ACID TABLET (FP) PO SCH (10:03)
[2018-05-22] MEDS: IBUPROFEN 600 MG TABLET (FP) PO PRN ×2 (14:45→21:14)
[2018-05-22] MEDS: THIAMINE HCL 100 MG TABLET (FP) PO SCH (21:14)
[2018-05-23] MEDS: NICOTINE 21 MG/24 HOURS TOPICAL PATCH TD SCH (10:23)
[2018-05-23] MEDS: PRENATAL VITAMINS W/ FOLIC ACID TABLET (FP) PO SCH (10:24)
[2018-05-23] MEDS: IBUPROFEN 600 MG TABLET (FP) PO PRN ×2 (12:40→21:37)
[2018-05-23] MEDS: THIAMINE HCL 100 MG TABLET (FP) PO SCH (21:37)
[2018-05-24] MEDS: PRENATAL VITAMINS W/ FOLIC ACID TABLET (FP) PO SCH (10:42)
[2018-05-24] MEDS: NICOTINE 21 MG/24 HOURS TOPICAL PATCH TD SCH (10:42)
[2018-05-24] MEDS: IBUPROFEN 600 MG TABLET (FP) PO PRN ×2 (15:01→21:43)
[2018-05-24] MEDS: THIAMINE HCL 100 MG TABLET (FP) PO SCH (21:43)
[2018-05-25] MEDS: PRENATAL VITAMINS W/ FOLIC ACID TABLET (FP) PO SCH (09:10)
[2018-05-25] MEDS: IBUPROFEN 600 MG TABLET (FP) PO PRN ×2 (09:10→18:19)
[2018-05-25] MEDS: NICOTINE 21 MG/24 HOURS TOPICAL PATCH TD SCH (09:11)
[2018-05-25] MEDS: THIAMINE HCL 100 MG TABLET (FP) PO SCH (21:40)
[2018-05-26 07:37] VITALS: BP 101/66; PULSE 52; TEMP 98
== END 2018-05-26 09:08 | disposition left against medical advice (07) | DRG 770 ==
LOC: YASAS 17:58 → Y3W 21:51
PROVIDERS: ADMIT Psychiatry & Neurology Psychiatry; ATTEND Psychiatry & Neurology Psychiatry
PROC: HZ42ZZZ Group Counseling for Substance Abuse Treatment, Cognitive-Behavioral (ICD-10-PCS; principal; 2018-05-20)
DX: F14.20 Cocaine dependence, uncomplicated (principal); F17.210 Nicotine dependence, cigarettes, uncomplicated; F41.1 Generalized anxiety disorder; F43.10 Post-traumatic stress disorder, unspecified; F32.9 Major depressive disorder, single episode, unspecified; R76.11 Nonspecific reaction to tuberculin skin test without active tuberculosis; E11.9 Type 2 diabetes mellitus without complications
CPT/HCPCS: 81003; 82962

== ENCOUNTER 2018-06-28 10:37 | Inpatient (IN) | payer OTHER ==
[2018-06-28 11:58] VITALS: BMI 21.7
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
[2018-06-28] MEDS ORDERED: P-EPHED 60MG/TRIPROLIDI 2.5MG TABLET PO PRN (15:27)
[2018-06-28] MEDS ORDERED: guaiFENesin/D-METHORPHAN HB 10 ML UNIT-DOSE CUPS PO PRN (15:27)
[2018-06-28] MEDS ORDERED: MAGNESIUM HYDROX 2400MG/30ML ORAL SUSPENSION 30 ML CUP PO PRN (15:27)
[2018-06-28] MEDS ORDERED: MENTHOL/PHENOL 1 EACH UD MM PRN (15:27)
[2018-06-28] MEDS ORDERED: MAGNESIUM CITRATE 300 ML BOTTLE PO PRN (15:27)
[2018-06-28] MEDS ORDERED: MAG HYDROX/AL HYDROX/SIMETH 30 ML UNIT-DOSE CUP PO PRN (15:27)
[2018-06-28] MEDS ORDERED: IBUPROFEN 400 MG TABLET (FP) PO PRN (15:27)
[2018-06-28] MEDS ORDERED: LOPERAMIDE HCL 2 MG CAPSULE PO PRN (15:27)
[2018-06-28] MEDS ORDERED: chlordiazePOXIDE HCL 25 MG CAPSULE PO PRN (15:27)
[2018-06-28] MEDS: chlordiazePOXIDE HCL 25 MG CAPSULE PO SCH ×2 (16:38→22:50)
[2018-06-28] MEDS ORDERED: MELATONIN 5 MG TABLETS PO PRN (22:00)
[2018-06-28] MEDS: THIAMINE HCL 100 MG TABLET (FP) PO SCH (22:50)
[2018-06-29] MEDS: chlordiazePOXIDE HCL 25 MG CAPSULE PO SCH ×4 (06:31→22:45)
[2018-06-29 09:51] LABS: HEMATOCRIT 40.7 % (35.4-49); HEMOGLOBIN 13.7 GM/dL (11.7-16.9); MCH 30.4 pg (25.7-33.7); MCHC 33.7 g/dl (32.0-35.9); MEAN CELL VOLUME 90.2 fl (80-96); MEAN PLT VOLUME 9.7 fl (7.5-11.1); PLATELET COUNT 220 K/MM3 (134-434); RBC 4.51 M/mm3 (4.00-5.60); WHITE BLOOD COUNT 5.4 K/mm3 (4.0-10.0)
[2018-06-29 10:12] LABS: ALBUMIN 3.2 g/dl (3.4-5.0); ALK PHOS 50 U/L (45-117); ANION GAP 5 MMOL/L (8-16); BILIRUBIN,TOTAL 0.2 mg/dL (0.2-1); BLOOD UREA NITROGEN 15 mg/dL (7-18); CALCIUM 8.4 mg/dL (8.5-10.1); CHLORIDE 109 mmol/L (98-107); CO2 28 mmol/L (21-32); CREATININE 0.9 mg/dL (0.55-1.3); GLUCOSE,RANDOM 97 mg/dL (74-106); SGOT/AST 7 U/L (15-37); SGPT/ALT 14 U/L (13-61); SODIUM 142 mmol/L (136-145); TOT PROT 5.7 g/dl (6.4-8.2)
[2018-06-29] MEDS: PRENATAL VITAMINS W/ FOLIC ACID TABLET (FP) PO SCH (10:48)
--- NOTE | 2018-06-29 11:55 | PN ---
S CIWA - CIWA Score Nausea/Vomitin-Mild Nausea/No Vomiting Muscle Tremors: 3 Anxiety: 3 Agitation: 3 Paroxysmal Sweats: 1-Minimal Palms Moist Orientation: 1-Uncertain about Date Tacttile Disturbances: 0-None Auditory Disturbances: 0-None Visual Disturbances: 0-None Headache: 1-Very Mild CIWA-Ar Total Score: 13 S Progress Note (SOAP) Subjective: tremor sweating restlessness Objective: 06/29/18 11:53 Vital Signs Temperature 97.0 F L 06/29/18 09:13 Pulse Rate 66 06/29/18 09:13 Respiratory Rate 18 06/29/18 09:13 Blood Pressure 82/52 L 06/29/18 09:13 O2 Sat by Pulse Oximetry (%) Laboratory Last Values WBC 5.4 K/mm3 (4.0-10.0) 06/29/18 07:50 RBC 4.51 M/mm3 (4.00-5.60) 06/29/18 07:50 Hgb 13.7 GM/dL (11.7-16.9) 06/29/18 07:50 Hct 40.7 % (35.4-49) 06/29/18 07:50 MCV 90.2 fl (80-96) 06/29/18 07:50 MCH 30.4 pg (25.7-33.7) 06/29/18 07:50 MCHC 33.7 g/dl (32.0-35.9) 06/29/18 07:50 RDW 14.0 % (11.9-15.9) 06/29/18 07:50 Plt Count 220 K/MM3 (134-434) 06/29/18 07:50 MPV 9.7 fl (7.5-11.1) 06/29/18 07:50 Sodium 142 mmol/L (136-145) 06/29/18 07:50 Potassium 4.0 mmol/L (3.5-5.1) 06/29/18 07:50 Chloride 109 mmol/L (98-107) H 06/29/18 07:50 Carbon Dioxide 28 mmol/L (21-32) 06/29/18 07:50 Anion Gap 5 MMOL/L (8-16) L 06/29/18 07:50 BUN 15 mg/dL (7-18) 06/29/18 07:50 Creatinine 0.9 mg/dL (0.55-1.3) 06/29/18 07:50 Creat Clearance w eGFR > 60 (>60) 06/29/18 07:50 Random Glucose 97 mg/dL (74-106) 06/29/18 07:50 Calcium 8.4 mg/dL (8.5-10.1) L 06/29/18 07:50 Total Bilirubin 0.2 mg/dL (0.2-1) 06/29/18 07:50 AST 7 U/L (15-37) L 06/29/18 07:50 ALT 14 U/L (13-61) 06/29/18 07:50 Alkaline Phosphatase 50 U/L (45-117) 06/29/18 07:50 Total Protein 5.7 g/dl (6.4-8.2) L 06/29/18 07:50 Albumin 3.2 g/dl (3.4-5.0) L 06/29/18 07:50 RPR Titer Nonreactive (NONREACTIVE) 06/29/18 07:50 lab noted Assessment: 06/29/18 11:54 withdrawal sx Plan: continue detox
[2018-06-29] MEDS: THIAMINE HCL 100 MG TABLET (FP) PO SCH (22:45)
[2018-06-30] MEDS: chlordiazePOXIDE HCL 25 MG CAPSULE PO SCH ×2 (06:24→10:13)
[2018-06-30] MEDS: ACETAMINOPHEN 325 MG TABLET (FP) PO PRN (09:53)
[2018-06-30] MEDS: PRENATAL VITAMINS W/ FOLIC ACID TABLET (FP) PO SCH (10:13)
--- NOTE | 2018-06-30 15:11 | PN ---
[facility] CIWA - CIWA Score Nausea/Vomitin-Mild Nausea/No Vomiting Muscle Tremors: 3 Anxiety: 2 Agitation: 2 Paroxysmal Sweats: 1-Minimal Palms Moist Orientation: 1-Uncertain about Date Tacttile Disturbances: 0-None Auditory Disturbances: 0-None Visual Disturbances: 0-None Headache: 1-Very Mild CIWA-Ar Total Score: 11 S Progress Note (SOAP) Subjective: Vital Signs Temperature 96.2 F L 06/30/18 13:08 Pulse Rate 63 06/30/18 13:08 Respiratory Rate 18 06/30/18 13:08 Blood Pressure 98/62 06/30/18 13:08 O2 Sat by Pulse Oximetry (%) Laboratory Last Values WBC 5.4 K/mm3 (4.0-10.0) 06/29/18 07:50 RBC 4.51 M/mm3 (4.00-5.60) 06/29/18 07:50 Hgb 13.7 GM/dL (11.7-16.9) 06/29/18 07:50 Hct 40.7 % (35.4-49) 06/29/18 07:50 MCV 90.2 fl (80-96) 06/29/18 07:50 MCH 30.4 pg (25.7-33.7) 06/29/18 07:50 MCHC 33.7 g/dl (32.0-35.9) 06/29/18 07:50 RDW 14.0 % (11.9-15.9) 06/29/18 07:50 Plt Count 220 K/MM3 (134-434) 06/29/18 07:50 MPV 9.7 fl (7.5-11.1) 06/29/18 07:50 Sodium 142 mmol/L (136-145) 06/29/18 07:50 Potassium 4.0 mmol/L (3.5-5.1) 06/29/18 07:50 Chloride 109 mmol/L (98-107) H 06/29/18 07:50 Carbon Dioxide 28 mmol/L (21-32) 06/29/18 07:50 Anion Gap 5 MMOL/L (8-16) L 06/29/18 07:50 BUN 15 mg/dL (7-18) 06/29/18 07:50 Creatinine 0.9 mg/dL (0.55-1.3) 06/29/18 07:50 Creat Clearance w eGFR > 60 (>60) 06/29/18 07:50 Random Glucose 97 mg/dL (74-106) 06/29/18 07:50 Calcium 8.4 mg/dL (8.5-10.1) L 06/29/18 07:50 Total Bilirubin 0.2 mg/dL (0.2-1) 06/29/18 07:50 AST 7 U/L (15-37) L 06/29/18 07:50 ALT 14 U/L (13-61) 06/29/18 07:50 Alkaline Phosphatase 50 U/L (45-117) 06/29/18 07:50 Total Protein 5.7 g/dl (6.4-8.2) L 06/29/18 07:50 Albumin 3.2 g/dl (3.4-5.0) L 06/29/18 07:50 RPR Titer Nonreactive (NONREACTIVE) 06/29/18 07:50 lab noted Objective: 06/30/18 15:11 Vital Signs Temperature 96.2 F L 06/30/18 13:08 Pulse Rate 63 06/30/18 13:08 Respiratory Rate 18 06/30/18 13:08 Blood Pressure 98/62 06/30/18 13:08 O2 Sat by Pulse Oximetry (%) Laboratory Last Values WBC 5.4 K/mm3 (4.0-10.0) 06/29/18 07:50 RBC 4.51 M/mm3 (4.00-5.60) 06/29/18 07:50 Hgb 13.7 GM/dL (11.7-16.9) 06/29/18 07:50 Hct 40.7 % (35.4-49) 06/29/18 07:50 MCV 90.2 fl (80-96) 06/29/18 07:50 MCH 30.4 pg (25.7-33.7) 06/29/18 07:50 MCHC 33.7 g/dl (32.0-35.9) 06/29/18 07:50 RDW 14.0 % (11.9-15.9) 06/29/18 07:50 Plt Count 220 K/MM3 (134-434) 06/29/18 07:50 MPV 9.7 fl (7.5-11.1) 06/29/18 07:50 Sodium 142 mmol/L (136-145) 06/29/18 07:50 Potassium 4.0 mmol/L (3.5-5.1) 06/29/18 07:50 Chloride 109 mmol/L (98-107) H 06/29/18 07:50 Carbon Dioxide 28 mmol/L (21-32) 06/29/18 07:50 Anion Gap 5 MMOL/L (8-16) L 06/29/18 07:50 BUN 15 mg/dL (7-18) 06/29/18 07:50 Creatinine 0.9 mg/dL (0.55-1.3) 06/29/18 07:50 Creat Clearance w eGFR > 60 (>60) 06/29/18 07:50 Random Glucose 97 mg/dL (74-106) 06/29/18 07:50 Calcium 8.4 mg/dL (8.5-10.1) L 06/29/18 07:50 Total Bilirubin 0.2 mg/dL (0.2-1) 06/29/18 07:50 AST 7 U/L (15-37) L 06/29/18 07:50 ALT 14 U/L (13-61) 06/29/18 07:50 Alkaline Phosphatase 50 U/L (45-117) 06/29/18 07:50 Total Protein 5.7 g/dl (6.4-8.2) L 06/29/18 07:50 Albumin 3.2 g/dl (3.4-5.0) L 06/29/18 07:50 RPR Titer Nonreactive (NONREACTIVE) 06/29/18 07:50 lab noted Assessment: 06/30/18 15:12 withdrawal sx Plan: continue detox
[2018-06-30] MEDS: chlordiazePOXIDE 5 MG CAPSULE PO SCH ×2 (18:22→23:41)
[2018-06-30] MEDS: THIAMINE HCL 100 MG TABLET (FP) PO SCH (23:39)
[2018-07-01] MEDS: chlordiazePOXIDE 5 MG CAPSULE PO SCH ×2 (06:30→10:10)
[2018-07-01] MEDS: PRENATAL VITAMINS W/ FOLIC ACID TABLET (FP) PO SCH (10:09)
[2018-07-01] MEDS: ACETAMINOPHEN 325 MG TABLET (FP) PO PRN ×2 (10:09→16:37)
[2018-07-01] MEDS ORDERED: BACLOFEN 10 MG TABLET (FP) PO ONE (10:52)
--- NOTE | 2018-07-01 10:55 | PN ---
S CIWA - CIWA Score Nausea/Vomitin-No Nausea/No Vomiting Muscle Tremors: 2 Anxiety: 1-Mildly Anxious Agitation: 2 Paroxysmal Sweats: 1-Minimal Palms Moist Orientation: 1-Uncertain about Date Tacttile Disturbances: 0-None Auditory Disturbances: 0-None Visual Disturbances: 0-None Headache: 2-Mild CIWA-Ar Total Score: 9 S Progress Note (SOAP) Subjective: feeling better mild tremor less sweating sleep better at night Objective: 07/01/18 10:55 Vital Signs Temperature 98.1 F 07/01/18 09:03 Pulse Rate 58 L 07/01/18 09:03 Respiratory Rate 18 07/01/18 09:03 Blood Pressure 98/60 07/01/18 09:03 O2 Sat by Pulse Oximetry (%) Laboratory Last Values WBC 5.4 K/mm3 (4.0-10.0) 06/29/18 07:50 RBC 4.51 M/mm3 (4.00-5.60) 06/29/18 07:50 Hgb 13.7 GM/dL (11.7-16.9) 06/29/18 07:50 Hct 40.7 % (35.4-49) 06/29/18 07:50 MCV 90.2 fl (80-96) 06/29/18 07:50 MCH 30.4 pg (25.7-33.7) 06/29/18 07:50 MCHC 33.7 g/dl (32.0-35.9) 06/29/18 07:50 RDW 14.0 % (11.9-15.9) 06/29/18 07:50 Plt Count 220 K/MM3 (134-434) 06/29/18 07:50 MPV 9.7 fl (7.5-11.1) 06/29/18 07:50 Sodium 142 mmol/L (136-145) 06/29/18 07:50 Potassium 4.0 mmol/L (3.5-5.1) 06/29/18 07:50 Chloride 109 mmol/L (98-107) H 06/29/18 07:50 Carbon Dioxide 28 mmol/L (21-32) 06/29/18 07:50 Anion Gap 5 MMOL/L (8-16) L 06/29/18 07:50 BUN 15 mg/dL (7-18) 06/29/18 07:50 Creatinine 0.9 mg/dL (0.55-1.3) 06/29/18 07:50 Creat Clearance w eGFR > 60 (>60) 06/29/18 07:50 Random Glucose 97 mg/dL (74-106) 06/29/18 07:50 Calcium 8.4 mg/dL (8.5-10.1) L 06/29/18 07:50 Total Bilirubin 0.2 mg/dL (0.2-1) 06/29/18 07:50 AST 7 U/L (15-37) L 06/29/18 07:50 ALT 14 U/L (13-61) 06/29/18 07:50 Alkaline Phosphatase 50 U/L (45-117) 06/29/18 07:50 Total Protein 5.7 g/dl (6.4-8.2) L 06/29/18 07:50 Albumin 3.2 g/dl (3.4-5.0) L 06/29/18 07:50 RPR Titer Nonreactive (NONREACTIVE) 06/29/18 07:50 lab noted Assessment: 07/01/18 10:56 mild withdrawal sx Plan: continue detox
[2018-07-01] MEDS: chlordiazePOXIDE HCL 10 MG CAPSULE PO SCH ×2 (17:54→23:00)
[2018-07-01] MEDS: THIAMINE HCL 100 MG TABLET (FP) PO SCH (23:00)
[2018-07-02 06:06] VITALS: BP 110/71; PULSE 75; TEMP 96.9
[2018-07-02] MEDS: chlordiazePOXIDE HCL 10 MG CAPSULE PO SCH (06:10)
--- NOTE | 2018-07-02 16:11 | DS ---
[facility] Detox Discharge Summary Admission Date: 06/28/18 Discharge Date: 07/02/18 - History Present History: Alcohol Dependence Additional Comments: 53 years old male admitted on 06/28/18 for alcohol withdrawal stabilization completed detox regimen [facility] Pertinent Past History: encourage bring in medication list or bottles of medication to aftercare appointments informed update any change of medication - Physical Exam Results Vital Signs: Vital Signs Temperature 96.9 F L 07/02/18 06:05 Pulse Rate 75 07/02/18 06:05 Respiratory Rate 18 07/02/18 06:05 Blood Pressure 110/71 07/02/18 06:05 O2 Sat by Pulse Oximetry (%) Pertinent Admission Physical Exam Findings: alcohol withdrawal sx Laboratory Last Values WBC 5.4 K/mm3 (4.0-10.0) 06/29/18 07:50 RBC 4.51 M/mm3 (4.00-5.60) 06/29/18 07:50 Hgb 13.7 GM/dL (11.7-16.9) 06/29/18 07:50 Hct 40.7 % (35.4-49) 06/29/18 07:50 MCV 90.2 fl (80-96) 06/29/18 07:50 MCH 30.4 pg (25.7-33.7) 06/29/18 07:50 MCHC 33.7 g/dl (32.0-35.9) 06/29/18 07:50 RDW 14.0 % (11.9-15.9) 06/29/18 07:50 Plt Count 220 K/MM3 (134-434) 06/29/18 07:50 MPV 9.7 fl (7.5-11.1) 06/29/18 07:50 Sodium 142 mmol/L (136-145) 06/29/18 07:50 Potassium 4.0 mmol/L (3.5-5.1) 06/29/18 07:50 Chloride 109 mmol/L (98-107) H 06/29/18 07:50 Carbon Dioxide 28 mmol/L (21-32) 06/29/18 07:50 Anion Gap 5 MMOL/L (8-16) L 06/29/18 07:50 BUN 15 mg/dL (7-18) 06/29/18 07:50 Creatinine 0.9 mg/dL (0.55-1.3) 06/29/18 07:50 Creat Clearance w eGFR > 60 (>60) 06/29/18 07:50 Random Glucose 97 mg/dL (74-106) 06/29/18 07:50 Calcium 8.4 mg/dL (8.5-10.1) L 06/29/18 07:50 Total Bilirubin 0.2 mg/dL (0.2-1) 06/29/18 07:50 AST 7 U/L (15-37) L 06/29/18 07:50 ALT 14 U/L (13-61) 06/29/18 07:50 Alkaline Phosphatase 50 U/L (45-117) 06/29/18 07:50 Total Protein 5.7 g/dl (6.4-8.2) L 06/29/18 07:50 Albumin 3.2 g/dl (3.4-5.0) L 06/29/18 07:50 RPR Titer Nonreactive (NONREACTIVE) 06/29/18 07:50 lab noted - Treatment Hospital Course: Detox Protocol Followed, Detoxed Safely, Responded well, Discharged Condition Good, Rehab Referral Accepted Patient has Accepted a [facility] Referral to: [facility] - Medication Discharge Medications: Ambulatory Orders NK [No Known Home Medication] 06/28/18 - Diagnosis (1) Weight loss Status: Acute (2) Alcohol dependence with uncomplicated withdrawal Status: Acute (3) Nicotine dependence Status: Acute Qualifiers: Nicotine product type: cigarettes Substance use status: in withdrawal Qualified Code(s): F17.213 - Nicotine dependence, cigarettes, with withdrawal (4) Positive PPD Status: Resolved - AMA Did Patient Leave Against Medical Advice: No
== END 2018-07-02 08:46 | disposition home or self-care (01) | DRG 774 ==
LOC: YASAS 10:37 → Y3N 15:53
PROVIDERS: ADMIT Surgery; ATTEND Surgery
PROC: HZ2ZZZZ Detoxification Services for Substance Abuse Treatment (ICD-10-PCS; principal; 2018-06-28)
DX: F10.230 Alcohol dependence with withdrawal, uncomplicated (principal); F14.20 Cocaine dependence, uncomplicated; F17.213 Nicotine dependence, cigarettes, with withdrawal; F43.10 Post-traumatic stress disorder, unspecified; F32.4 Major depressive disorder, single episode, in partial remission; R76.11 Nonspecific reaction to tuberculin skin test without active tuberculosis; Z91.14 Patient's other noncompliance with medication regimen; Z91.5 Personal history of self-harm
CPT/HCPCS: 36415; 80053; 85027; 86593; J0475

== ENCOUNTER 2018-08-03 14:53 | Inpatient (IN) | payer OTHER ==
[2018-08-03 16:43] VITALS: BMI 21.6
--- NOTE | 2018-08-03 20:52 | HP ---
CIWA Score Nausea/Vomitin-No Nausea/No Vomiting Muscle Tremors: None Anxiety: 4-Mod. Anxious/Guarded Agitation: 4-Moderately Restless Paroxysmal Sweats: 3 Orientation: 1-Uncertain about Date Tacttile Disturbances: 0-None Auditory Disturbances: 0-None Visual Disturbances: 2-Mild Sensitivity Headache: 4-Moderately Severe CIWA-Ar Total Score: 18 - Admission Criteria [facility] Guidelines: Admission for Medically Managed Detox: Requires at least one of the followin. CIWA greater than 12 2. Seizures within the past 24 hours 3. Delirium tremens within the past 24 hours 4. Hallucinations within the past 24 hours 5. Acute intervention needed for co occurring medical disorder 6. Acute intervention needed for co occurring psychiatric disorder 7. Severe withdrawal that cannot be handled at a lower level of care (continued vomiting, continued diarrhea, abnormal vital signs) requiring intravenous medication and/or fluids 8. Patient presents the following: CIWA greater than 12 (CIWA 18), Acute intervention needed for co-occurring med or psych disorder (HX/O MDD, ANXIETY, PTSD) Admission Criteria Met: Admission criteria met Admission ROS [facility] Chief Complaint: C/O WORSENING WITHDRAWAL SX'S. SEEKING DETOX Allergies/Adverse Reactions: Allergies Allergy/AdvReac Type Severity Reaction Status Date / Time No Known Allergies Allergy Verified 08/03/18 19:56 History of Present Illness: 53 Y.O. MALE WITH LONG HX/O ALCOHOLISM HERE FOR DETOX. CLIENT IS SELF REFERRED. HE IS KNOWN TO THIS PROGRAM. LAST HERE 06/2018. REPORTS RELPASING AFTER 2 DAYS OF DC. PRESENTS TODAY WITH C/O WITHDRAWAL SX'S CIWA 18, ALISHA 0. REPORTS LAST DRINK 1 DAY AGO. DRINKS 1 PINT DAILY AND A FEW BEERS. STATES HIS LONGEST CLEAN TIME 2 YEARS IN A RESIDENTIAL PROGRAM AND MOST RECENT 28 DAYS IN A REHAB A FEW MONTHS BACK. DENIES HX/O SEIZURE, AVH, SI/HI. DENIES PMHX BUT REPORTS PSYCH HX/ O ANXIETY, MDD, PTSD. LIVES ALONE IN SUPPORTIVE HOUSING, UNEMPLOYED, DENIES LEGALS. Exam Limitations: No Limitations - Ebola screening Have you traveled outside of the country in the last 21 days: No Have you had contact with anyone from an Ebola affected area: No Have you been sick,other than usual withdrawal symptoms: No - Review of Systems Constitutional: Loss of Appetite, Malaise, Unintentional Wgt. Loss EENT: reports: Dental Problems (MISSING TEETH) Respiratory: reports: No Symptoms reported Cardiac: reports: No Symptoms Reported GI: reports: Diarrhea, Poor Appetite, Poor Fluid Intake, Abdominal cramping : reports: No Symptoms Reported Musculoskeletal: reports: Back Pain (CHRONIC) Integumentary: reports: Flushing Neuro: reports: Headache Endocrine: reports: No Symptoms Reported Hematology: reports: No Symptoms Reported Psychiatric: reports: Orientated x3, Anxious, Depressed Other Systems: Reviewed and Negative Patient History - Patient Medical History Hx Anemia: No Hx Asthma: No Hx Chronic Obstructive Pulmonary Disease (COPD): No Hx Cancer: No Hx Cardiac Disorders: No Hx Congestive Heart Failure: No Hx Hypertension: No Hx Hypercholesterolemia: No Hx Pacemaker: No HX Cerebrovascular Accident: No Hx Seizures: No Hx Dementia: No Hx Diabetes: No Hx Gastrointestinal Disorders: No Hx Liver Disease: No Hx Genitourinary Disorders: No Hx Sexually Transmitted Disorders: No Hx Renal Disease (ESRD): No Hx Thyroid Disease: No Hx Human Immunodeficiency Virus (HIV): No Hx Hepatitis C: No Hx Depression: Yes Hx Suicide Attempt: No Hx Bipolar Disorder: No Hx Schizophrenia: No Other Medical History: ANXIETY, PTSD - Patient Surgical History Past Surgical History: Yes Hx Neurologic Surgery: No Hx Cataract Extraction: No Hx Cardiac Surgery: No Hx Lung Surgery: No Hx Breast Surgery: No Hx Breast Biopsy: No Hx Abdominal Surgery: No Hx Appendectomy: Yes (IN 1999) Hx Cholecystectomy: No Hx Genitourinary Surgery: No Hx Section: No Hx Orthopedic Surgery: No Hx Hysterectomy: No Anesthesia Reaction: No - PPD History Previous Implant?: Yes Documented Results: Positive w/o proof Implanted On Prior [facility] Admission?: No Results: CXR(-) 05/13/18 PPD to be Administered?: No - Smoking Cessation Smoking history: Current every day smoker Have you smoked in the past 12 months: Yes Aproximately how many cigarettes per day: 20 Cigars Per Day: 0 Hx Chewing Tobacco Use: No Initiated information on smoking cessation: Yes 'Breaking Loose' booklet given: 08/03/18 - Substance & Tx. History Hx Alcohol Use: Yes Hx Substance Use: Yes Substance Use Type: Alcohol, Cocaine Hx Substance Use Treatment: Yes ([facility]) - Substances Abused Alcohol Route: Oral Frequency: Daily Amount used: 1 pint of vodka Age of first use: 15 Date of Last Use: 08/03/18 Cocaine Route: Smoking Frequency: 3-6 times per week Amount used: $100 Age of first use: 19 Date of Last Use: 08/03/18 Family Disease History - Family Disease History Family Disease History: Diabetes: Mother (), Brother, [place]: Father ( throat ), Other: Mother, Sister (NO SISTER) Admission Physical Exam [facility] - Vital Signs Vital Signs: Vital Signs - 24 hr 08/03/18 16:41 Temperature 97.7 F Pulse Rate 68 Respiratory 18 Rate Blood Pressure 106/60 - Physical General Appearance: Yes: Appropriately Dressed, Anxious HEENTM: Yes: EOMI, Normocephalic, Normal Voice, LEONCIO, Pharynx Normal, Other ( MISSING TEETH) Respiratory: Yes: Chest Non-Tender, Lungs Clear, Normal Breath Sounds, No Respiratory Distress, No Accessory Muscle Use Neck: Yes: No masses,lesions,Nodules, Supple, Trachea in good position Breast: Yes: Breast Exam Deferred Cardiology: Yes: Regular Rhythm, Regular Rate, S1, S2 Abdominal: Yes: Non Tender, Soft, Increased Bowel Sounds Genitourinary: Yes: Other (NO C/O) Back: Yes: Normal Inspection Musculoskeletal: Yes: full range of Motion, Gait Steady Extremities: Yes: Normal Capillary Refill, Normal Range of Motion, Non-Tender 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: Yes: Fully Oriented, Alert, Motor Strength 5/5 Integumentary: Yes: Dry, Warm, Other (FLUSHED) Lymphatic: Yes: Within Normal Limits - Diagnostic (1) Alcohol dependence with uncomplicated withdrawal Current Visit: Yes Status: Acute (2) Cocaine dependence Current Visit: Yes Status: Acute (3) Nicotine dependence Current Visit: Yes Status: Chronic Qualifiers: Nicotine product type: cigarettes Substance use status: in withdrawal Qualified Code(s): F17.213 - Nicotine dependence, cigarettes, with withdrawal (4) PTSD (post-traumatic stress disorder) Current Visit: Yes Status: Chronic (5) Positive PPD Current Visit: Yes Status: Resolved Comment: Last CXR 05/13/18 - Neg (6) At risk for dehydration due to poor fluid intake Current Visit: Yes Status: Acute Cleared for Admission S - Detox or Rehab [facility] Level of Care: Medically Managed Detox Regimen/Protocol: Librium Claeared for Rehab Admission: No [facility] Breath Alcohol Content Breath Alcohol Content: 0 Urine Drug Screen - Results Drug Screen Negative: No Urine Drug Screen Results: MARITA-Cocaine Inpatient Rehab Admission - Rehab Decision to Admit Inpatient rehab admission?: No
[2018-08-03] MEDS ORDERED: MENTHOL/PHENOL 1 EACH UD MM PRN (20:56)
[2018-08-03] MEDS ORDERED: MAGNESIUM CITRATE 300 ML BOTTLE PO PRN (20:56)
[2018-08-03] MEDS ORDERED: ONDANSETRON *ODT* 4 MG TABLET SL PRN (20:56)
[2018-08-03] MEDS ORDERED: MELATONIN 5 MG TABLETS PO PRN (20:56)
[2018-08-03] MEDS ORDERED: MAG HYDROX/AL HYDROX/SIMETH 30 ML UNIT-DOSE CUP PO PRN (20:56)
[2018-08-03] MEDS ORDERED: NICOTINE POLACRILEX 2 MG GUM BUC PRN (20:56)
[2018-08-03] MEDS ORDERED: ACETAMINOPHEN 325 MG TABLET (FP) PO PRN (20:56)
[2018-08-03] MEDS ORDERED: chlordiazePOXIDE HCL 25 MG CAPSULE PO PRN (20:56)
[2018-08-03] MEDS ORDERED: DICYCLOMINE HCL 10 MG CAPSULE PO PRN (20:56)
[2018-08-03] MEDS ORDERED: P-EPHED 60MG/TRIPROLIDI 2.5MG TABLET PO PRN (20:56)
[2018-08-03] MEDS ORDERED: METHOCARBAMOL 500 MG TABLET PO PRN (20:56)
[2018-08-03] MEDS ORDERED: guaiFENesin 200 MG/10 ML 10 ML UNIT-DOSE CUPS PO PRN (20:56)
[2018-08-03] MEDS ORDERED: BISMUTH SUBSALICYLATE 524 MG/30 ML UD PO PRN (20:56)
[2018-08-03] MEDS ORDERED: MAGNESIUM HYDROX 2400MG/30ML ORAL SUSPENSION 30 ML CUP PO PRN (20:56)
[2018-08-03] MEDS ORDERED: hydrOXYzine PAMOATE 25 MG CAPSULE (FP) PO PRN (20:56)
[2018-08-03] MEDS: THIAMINE HCL 100 MG TABLET (FP) PO SCH (22:46)
[2018-08-03] MEDS: chlordiazePOXIDE HCL 25 MG CAPSULE PO SCH (22:46)
[2018-08-04 00:12] LABS: URINE APPEARANCE CLEAR; URINE BILIRUBIN NEGATIVE (<2.0 mg/dL); URINE COLOR YELLOW; URINE GLUCOSE (UA) NEGATIVE (NEGATIVE); URINE KETONE NEGATIVE (NEGATIVE); URINE LEUK ESTERASE NEGATIVE (NEGATIVE); URINE NITRITE NEGATIVE (NEGATIVE); URINE PROTEIN 1+ (NEGATIVE); URINE UROBILINOGEN 4.0 E.U/dl mg/dL (0.2-1.0)
[2018-08-04 00:18] LABS: EPI CELLS RARE /HPF (FEW); URINE BACTERIA RARE /hpf (NONE SEEN); URINE HYALINE CAST 1 /lpf; URINE MUCUS RARE
[2018-08-04] MEDS: chlordiazePOXIDE HCL 25 MG CAPSULE PO SCH ×4 (06:32→22:20)
[2018-08-04] MEDS: NICOTINE 21 MG/24 HOURS TOPICAL PATCH TD SCH (10:14)
[2018-08-04] MEDS: PRENATAL VITAMINS W/ FOLIC ACID TABLET (FP) PO SCH (10:14)
--- NOTE | 2018-08-04 10:19 | PN ---
S CIWA - CIWA Score Nausea/Vomitin-Mild Nausea/No Vomiting Muscle Tremors: 3 Anxiety: 2 Agitation: 3 Paroxysmal Sweats: 1-Minimal Palms Moist Orientation: 0-Oriented Tacttile Disturbances: 0-None Auditory Disturbances: 0-None Visual Disturbances: 0-None Headache: 2-Mild CIWA-Ar Total Score: 12 [facility] Progress Note (SOAP) Subjective: patient is feeling ok after the librium poor appetite less tremor mild sweating Objective: 08/04/18 10:39 Vital Signs Temperature 97.7 F 08/04/18 09:23 Pulse Rate 50 L 08/04/18 09:23 Respiratory Rate 18 08/04/18 09:23 Blood Pressure 95/59 L 08/04/18 09:23 O2 Sat by Pulse Oximetry (%) Laboratory Last Values Urine Color Yellow 08/03/18 22:00 Urine Appearance Clear 08/03/18 22:00 Urine pH 6.0 (5.0-8.0) 08/03/18 22:00 Ur Specific [place] 1.017 (1.010-1.035) 08/03/18 22:00 Urine Protein 1+ (NEGATIVE) H 08/03/18 22:00 Urine Glucose (UA) Negative (NEGATIVE) 08/03/18 22:00 Urine Ketones Negative (NEGATIVE) 08/03/18 22:00 Urine Blood Negative (NEGATIVE) 08/03/18 22:00 Urine Nitrite Negative (NEGATIVE) 08/03/18 22:00 Urine Bilirubin Negative (<2.0 mg/dL) 08/03/18 22:00 Urine Urobilinogen 4.0 e.u/dl mg/dL (0.2-1.0) 08/03/18 22:00 Ur Leukocyte Esterase Negative (NEGATIVE) 08/03/18 22:00 Urine WBC (Auto) 1 /hpf (3-5) 08/03/18 22:00 Urine RBC (Auto) None /hpf (0-3) 08/03/18 22:00 Ur Epithelial Cells Rare /HPF (FEW) 08/03/18 22:00 Urine Bacteria Rare /hpf (NONE SEEN) 08/03/18 22:00 Hyaline Casts 1 /lpf 08/03/18 22:00 Urine Mucus Rare 08/03/18 22:00 lab noted Assessment: 08/04/18 10:39 alcohol withdrawal sx Plan: continue detox
[2018-08-04 11:24] LABS: HEMATOCRIT 39.3 % (35.4-49); HEMOGLOBIN 13.3 GM/dL (11.7-16.9); MCH 30.6 pg (25.7-33.7); MEAN CELL VOLUME 90.1 fl (80-96); MEAN PLT VOLUME 9.6 fl (7.5-11.1); PLATELET COUNT 215 K/MM3 (134-434); RBC 4.36 M/mm3 (4.00-5.60); RDW 13.7 % (11.9-15.9); WHITE BLOOD COUNT 5.5 K/mm3 (4.0-10.0)
[2018-08-04 12:21] LABS: BLOOD UREA NITROGEN 12 mg/dL (7-18); GLUCOSE,RANDOM 80 mg/dL (74-106); POTASSIUM 4.2 mmol/L (3.5-5.1); SODIUM 142 mmol/L (136-145)
[2018-08-04 12:22] LABS: ANION GAP 3 MMOL/L (8-16); CALCIUM 8.9 mg/dL (8.5-10.1); CHLORIDE 109 mmol/L (98-107); CO2 30 mmol/L (21-32)
[2018-08-04 12:23] LABS: ALBUMIN 3.2 g/dl (3.4-5.0); ALK PHOS 60 U/L (45-117); BILIRUBIN,TOTAL 0.3 mg/dL (0.2-1); SGPT/ALT 17 U/L (13-61); TOT PROT 6.1 g/dl (6.4-8.2)
[2018-08-04 12:32] LABS: SGOT/AST 41 U/L (15-37)
--- NOTE | 2018-08-04 17:02 | CONSULT ---
[facility] Psychiatric Consult - Data Date of interview: 08/04/18 Admission source: [facility] Identifying data: This is one of several admissions to [facility] for this 53 y/ o male self-referred for detoxification (alcohol, cocaine). Interviewed on . Patient is single without children, domiciled, unemployed and supported on Public Assistance. Substance Abuse History: Confirmed by the patient. Details in current [facility] report as follows : Smoking history: Current every day smoker. Have you smoked in the past 12 months: Yes. Aproximately how many cigarettes per day: 20. Cigars Per Day: 0. Hx Chewing Tobacco Use: No. Initiated information on smoking cessation: Yes. 'Breaking Loose' booklet given: 08/03/18. - Substance & Tx. History. Hx Alcohol Use: Yes. Hx Substance Use: Yes. Substance Use Type : Alcohol, Cocaine. Hx Substance Use Treatment: Yes ([facility]). - Substances Abused. Alcohol. Route: Oral. Frequency: Daily. Amount used: 1 pint of vodka. Age of first use: 15. Date of Last Use: 08/03/18. Cocaine. Route: Smoking. Frequency: 3-6 times per week. Amount used: $100. Age of first use: 19. Date of Last Use: 08/03/18 Medical History: Significant for a history of appendectomy (1999), distant treatment for syphilis and hepatitis C (according to [facility] data). Psychiatric History: Patient denies history of psychiatric hospitalizations. Mr Reyes sees a psychiatrist at [facility] in the [place]. Diagnosed with MDD, Anxiety Disorder and PTSD. Patient states that he is prescribed sertraline, seroquel and klonopin (not taken for three days. He also insists on NOT resuming these drugs in current hospital course. " I don't know. I may get back on them when I get home ". No reported history of suicide attempts. Physical/Sexual Abuse/Trauma History: Patient declines to discuss this domain. Additional Comment: Urine Drug Screen Results: MARITA-Cocaine. Noted. Mental Status Exam - Mental Status Exam Alert and Oriented to: Time, Place, Person Cognitive Function: Good Patient Appearance: Well Groomed Mood: Withdrawn Affect: Mood Congruent, Constricted Patient Behavior: Fatigued, Appropriate, Cooperative Speech Pattern: Clear Voice Loudness: Normal Thought Process: Intact, Goal Oriented Thought Disorder: Not Present Hallucinations: Denies Suicidal Ideation: Denies Homicidal Ideation: Denies Insight/Judgement: Poor Sleep: Well Appetite: Good Muscle strength/Tone: Normal Gait/Station: Normal Psychiatric Findings - Problem List (Independence 1, 2,3) (1) Alcohol dependence with uncomplicated withdrawal Current Visit: Yes Status: Acute (2) Cocaine dependence Current Visit: Yes Status: Acute (3) Nicotine dependence Current Visit: Yes Status: Chronic Qualifiers: Nicotine product type: cigarettes Substance use status: in withdrawal Qualified Code(s): F17.213 - Nicotine dependence, cigarettes, with withdrawal (4) Substance induced mood disorder Current Visit: Yes Status: Chronic (5) Non-compliance Current Visit: Yes Status: Chronic - Initial Treatment Plan Initial Treatment Plan: Psychoeducation. Sleep hygiene. Detoxification. Groups. AA meetings. Relapse prevention : discussed in this session. Observation.
[2018-08-04] MEDS: THIAMINE HCL 100 MG TABLET (FP) PO SCH (22:20)
[2018-08-05] MEDS: chlordiazePOXIDE HCL 25 MG CAPSULE PO SCH ×3 (06:11→18:34)
[2018-08-05] MEDS: NICOTINE 21 MG/24 HOURS TOPICAL PATCH TD SCH (10:38)
[2018-08-05] MEDS: PRENATAL VITAMINS W/ FOLIC ACID TABLET (FP) PO SCH (10:38)
--- NOTE | 2018-08-05 11:47 | PN ---
[facility] CIWA - CIWA Score Nausea/Vomitin-No Nausea/No Vomiting Muscle Tremors: 2 Anxiety: 1-Mildly Anxious Agitation: 3 Paroxysmal Sweats: 1-Minimal Palms Moist Orientation: 3-Disoriented Date>2 days Tacttile Disturbances: 0-None Auditory Disturbances: 0-None Visual Disturbances: 0-None Headache: 0-None Present CIWA-Ar Total Score: 10 [facility] Progress Note (SOAP) Subjective: mild tremor otherwise doing ok encourage oral fluid and physical activities during the day Objective: 08/05/18 11:48 Vital Signs Temperature 96.9 F L 08/05/18 10:23 Pulse Rate 69 08/05/18 10:23 Respiratory Rate 18 08/05/18 10:23 Blood Pressure 118/76 08/05/18 10:23 O2 Sat by Pulse Oximetry (%) Laboratory Last Values WBC 5.5 K/mm3 (4.0-10.0) 08/04/18 07:30 RBC 4.36 M/mm3 (4.00-5.60) 08/04/18 07:30 Hgb 13.3 GM/dL (11.7-16.9) 08/04/18 07:30 Hct 39.3 % (35.4-49) 08/04/18 07:30 MCV 90.1 fl (80-96) 08/04/18 07:30 MCH 30.6 pg (25.7-33.7) 08/04/18 07:30 MCHC 34.0 g/dl (32.0-35.9) 08/04/18 07:30 RDW 13.7 % (11.9-15.9) 08/04/18 07:30 Plt Count 215 K/MM3 (134-434) 08/04/18 07:30 MPV 9.6 fl (7.5-11.1) 08/04/18 07:30 Sodium 142 mmol/L (136-145) 08/04/18 07:30 Potassium 4.2 mmol/L (3.5-5.1) 08/04/18 07:30 Chloride 109 mmol/L (98-107) H 08/04/18 07:30 Carbon Dioxide 30 mmol/L (21-32) 08/04/18 07:30 Anion Gap 3 MMOL/L (8-16) L 08/04/18 07:30 BUN 12 mg/dL (7-18) 08/04/18 07:30 Creatinine 1.0 mg/dL (0.55-1.3) 08/04/18 07:30 Creat Clearance w eGFR 78.16 (>60) 08/04/18 07:30 Random Glucose 80 mg/dL (74-106) 08/04/18 07:30 Calcium 8.9 mg/dL (8.5-10.1) 08/04/18 07:30 Total Bilirubin 0.3 mg/dL (0.2-1) 08/04/18 07:30 AST 41 U/L (15-37) H 08/04/18 07:30 ALT 17 U/L (13-61) 08/04/18 07:30 Alkaline Phosphatase 60 U/L (45-117) 08/04/18 07:30 Total Protein 6.1 g/dl (6.4-8.2) L 08/04/18 07:30 Albumin 3.2 g/dl (3.4-5.0) L 08/04/18 07:30 Urine Color Yellow 08/03/18 22:00 Urine Appearance Clear 08/03/18 22:00 Urine pH 6.0 (5.0-8.0) 08/03/18 22:00 Ur Specific [place] 1.017 (1.010-1.035) 08/03/18 22:00 Urine Protein 1+ (NEGATIVE) H 08/03/18 22:00 Urine Glucose (UA) Negative (NEGATIVE) 08/03/18 22:00 Urine Ketones Negative (NEGATIVE) 08/03/18 22:00 Urine Blood Negative (NEGATIVE) 08/03/18 22:00 Urine Nitrite Negative (NEGATIVE) 08/03/18 22:00 Urine Bilirubin Negative (<2.0 mg/dL) 08/03/18 22:00 Urine Urobilinogen 4.0 e.u/dl mg/dL (0.2-1.0) 08/03/18 22:00 Ur Leukocyte Esterase Negative (NEGATIVE) 08/03/18 22:00 Urine WBC (Auto) 1 /hpf (3-5) 08/03/18 22:00 Urine RBC (Auto) None /hpf (0-3) 08/03/18 22:00 Ur Epithelial Cells Rare /HPF (FEW) 08/03/18 22:00 Urine Bacteria Rare /hpf (NONE SEEN) 08/03/18 22:00 Hyaline Casts 1 /lpf 08/03/18 22:00 Urine Mucus Rare 08/03/18 22:00 RPR Titer Nonreactive (NONREACTIVE) 08/04/18 07:30 HIV 1&2 Antibody Screen Negative 08/04/18 07:30 HIV P24 Antigen Negative 08/04/18 07:30 lab noted Assessment: 08/05/18 11:48 withdrawal sx Plan: continue detox
[2018-08-05] MEDS: IBUPROFEN 400 MG TABLET (FP) PO PRN (21:36)
[2018-08-05] MEDS: THIAMINE HCL 100 MG TABLET (FP) PO SCH (22:21)
[2018-08-05] MEDS: chlordiazePOXIDE HCL 10 MG CAPSULE PO SCH (22:22)
[2018-08-05] MEDS ORDERED: chlordiazePOXIDE HCL 10 MG CAPSULE PO PRN (23:00)
[2018-08-06] MEDS: chlordiazePOXIDE HCL 10 MG CAPSULE PO SCH ×4 (05:43→22:33)
[2018-08-06] MEDS: PRENATAL VITAMINS W/ FOLIC ACID TABLET (FP) PO SCH (10:47)
[2018-08-06] MEDS: NICOTINE 21 MG/24 HOURS TOPICAL PATCH TD SCH (10:48)
[2018-08-06] MEDS: IBUPROFEN 400 MG TABLET (FP) PO PRN (13:16)
--- NOTE | 2018-08-06 13:49 | PN ---
S CIWA - CIWA Score Nausea/Vomitin-No Nausea/No Vomiting Muscle Tremors: 2 Anxiety: 1-Mildly Anxious Agitation: 2 Paroxysmal Sweats: No Perspiration Orientation: 0-Oriented Tacttile Disturbances: 0-None Auditory Disturbances: 0-None Visual Disturbances: 0-None Headache: 1-Very Mild CIWA-Ar Total Score: 6 S Progress Note (SOAP) Subjective: feeling better wants to go to rehab and willing to attend support group Objective: 08/06/18 13:52 Vital Signs Temperature 96.6 F L 08/06/18 13:28 Pulse Rate 69 08/06/18 13:28 Respiratory Rate 20 08/06/18 13:28 Blood Pressure 99/60 08/06/18 13:28 O2 Sat by Pulse Oximetry (%) Laboratory Last Values WBC 5.5 K/mm3 (4.0-10.0) 08/04/18 07:30 RBC 4.36 M/mm3 (4.00-5.60) 08/04/18 07:30 Hgb 13.3 GM/dL (11.7-16.9) 08/04/18 07:30 Hct 39.3 % (35.4-49) 08/04/18 07:30 MCV 90.1 fl (80-96) 08/04/18 07:30 MCH 30.6 pg (25.7-33.7) 08/04/18 07:30 MCHC 34.0 g/dl (32.0-35.9) 08/04/18 07:30 RDW 13.7 % (11.9-15.9) 08/04/18 07:30 Plt Count 215 K/MM3 (134-434) 08/04/18 07:30 MPV 9.6 fl (7.5-11.1) 08/04/18 07:30 Sodium 142 mmol/L (136-145) 08/04/18 07:30 Potassium 4.2 mmol/L (3.5-5.1) 08/04/18 07:30 Chloride 109 mmol/L (98-107) H 08/04/18 07:30 Carbon Dioxide 30 mmol/L (21-32) 08/04/18 07:30 Anion Gap 3 MMOL/L (8-16) L 08/04/18 07:30 BUN 12 mg/dL (7-18) 08/04/18 07:30 Creatinine 1.0 mg/dL (0.55-1.3) 08/04/18 07:30 Creat Clearance w eGFR 78.16 (>60) 08/04/18 07:30 Random Glucose 80 mg/dL (74-106) 08/04/18 07:30 Calcium 8.9 mg/dL (8.5-10.1) 08/04/18 07:30 Total Bilirubin 0.3 mg/dL (0.2-1) 08/04/18 07:30 AST 41 U/L (15-37) H 08/04/18 07:30 ALT 17 U/L (13-61) 08/04/18 07:30 Alkaline Phosphatase 60 U/L (45-117) 08/04/18 07:30 Total Protein 6.1 g/dl (6.4-8.2) L 08/04/18 07:30 Albumin 3.2 g/dl (3.4-5.0) L 08/04/18 07:30 Urine Color Yellow 08/03/18 22:00 Urine Appearance Clear 08/03/18 22:00 Urine pH 6.0 (5.0-8.0) 08/03/18 22:00 Ur Specific [place] 1.017 (1.010-1.035) 08/03/18 22:00 Urine Protein 1+ (NEGATIVE) H 08/03/18 22:00 Urine Glucose (UA) Negative (NEGATIVE) 08/03/18 22:00 Urine Ketones Negative (NEGATIVE) 08/03/18 22:00 Urine Blood Negative (NEGATIVE) 08/03/18 22:00 Urine Nitrite Negative (NEGATIVE) 08/03/18 22:00 Urine Bilirubin Negative (<2.0 mg/dL) 08/03/18 22:00 Urine Urobilinogen 4.0 e.u/dl mg/dL (0.2-1.0) 08/03/18 22:00 Ur Leukocyte Esterase Negative (NEGATIVE) 08/03/18 22:00 Urine WBC (Auto) 1 /hpf (3-5) 08/03/18 22:00 Urine RBC (Auto) None /hpf (0-3) 08/03/18 22:00 Ur Epithelial Cells Rare /HPF (FEW) 08/03/18 22:00 Urine Bacteria Rare /hpf (NONE SEEN) 08/03/18 22:00 Hyaline Casts 1 /lpf 08/03/18 22:00 Urine Mucus Rare 08/03/18 22:00 RPR Titer Nonreactive (NONREACTIVE) 08/04/18 07:30 HIV 1&2 Antibody Screen Negative 08/04/18 07:30 HIV P24 Antigen Negative 08/04/18 07:30 lab noted Assessment: 08/06/18 13:52 withdrawal sx Plan: continue detox
[2018-08-06] MEDS: THIAMINE HCL 100 MG TABLET (FP) PO SCH (22:33)
[2018-08-07 09:35] VITALS: BP 94/60; PULSE 71; TEMP 98.7
[2018-08-07] MEDS: NICOTINE 21 MG/24 HOURS TOPICAL PATCH TD SCH (10:00)
[2018-08-07] MEDS: PRENATAL VITAMINS W/ FOLIC ACID TABLET (FP) PO SCH (10:01)
[2018-08-07] MEDS: chlordiazePOXIDE HCL 10 MG CAPSULE PO SCH (10:01)
--- NOTE | 2018-08-07 18:16 | DS ---
[facility] Detox Discharge Summary Admission Date: 08/03/18 Discharge Date: 08/07/18 - History Present History: Alcohol Dependence, Cocaine Dependence Additional Comments: PATIENT ORIGINALLY INTENT ON GOING TO [facility] ([place], [place]) . HOWEVER, NO BEDS ARE CURRENTLY AVAILABLE IN [facility], PATIENT REFERRED TO '[facility] ' ([place], [place]) FOR AFTERCARE. PATIENT WILL CONSIDER APPLYING FOR ADMISSION TO [facility] FOR FUTURE DATE. PATIENT WAS DISCHARGED FROM DETOX UNIT IN STABLE MEDICAL CONDITION. Pertinent Past History: Nicotine Dependence, History of Depression, Anxiety, History of P.T.S.D., History of Positive PPD. - Physical Exam Results Vital Signs: Vital Signs Temperature 98.7 F 08/07/18 09:34 Pulse Rate 71 08/07/18 09:34 Respiratory Rate 18 08/07/18 09:34 Blood Pressure 94/60 08/07/18 09:34 O2 Sat by Pulse Oximetry (%) Pertinent Admission Physical Exam Findings: WITHDRAWAL SYMPTOMS. Laboratory Tests 08/03/18 08/04/18 08/04/18 22:00 07:30 07:30 WBC 5.5 RBC 4.36 Hgb 13.3 Hct 39.3 MCV 90.1 MCH 30.6 MCHC 34.0 RDW 13.7 Plt Count 215 MPV 9.6 Sodium Potassium Chloride Carbon Dioxide Anion Gap BUN Creatinine Creat Clearance w eGFR Random Glucose Calcium Total Bilirubin AST ALT Alkaline Phosphatase Total Protein Albumin Urine Color Yellow Urine Appearance Clear Urine pH 6.0 Ur Specific [place] 1.017 Urine Protein 1+ H Urine Glucose (UA) Negative Urine Ketones Negative Urine Blood Negative Urine Nitrite Negative Urine Bilirubin Negative Urine Urobilinogen 4.0 e.u/dl Ur Leukocyte Esterase Negative Urine WBC (Auto) 1 Urine RBC (Auto) None Ur Epithelial Cells Rare Urine Bacteria Rare Hyaline Casts 1 Urine Mucus Rare RPR Titer HIV 1&2 Antibody Screen Negative HIV P24 Antigen Negative 08/04/18 08/04/18 07:30 07:30 WBC RBC Hgb Hct MCV MCH MCHC RDW Plt Count MPV Sodium 142 Potassium 4.2 Chloride 109 H Carbon Dioxide 30 Anion Gap 3 L BUN 12 Creatinine 1.0 Creat Clearance w eGFR 78.16 Random Glucose 80 Calcium 8.9 Total Bilirubin 0.3 AST 41 H ALT 17 Alkaline Phosphatase 60 Total Protein 6.1 L Albumin 3.2 L Urine Color Urine Appearance Urine pH Ur Specific [place] Urine Protein Urine Glucose (UA) Urine Ketones Urine Blood Urine Nitrite Urine Bilirubin Urine Urobilinogen Ur Leukocyte Esterase Urine WBC (Auto) Urine RBC (Auto) Ur Epithelial Cells Urine Bacteria Hyaline Casts Urine Mucus RPR Titer Nonreactive HIV 1&2 Antibody Screen HIV P24 Antigen LABS NOTED. - Treatment Hospital Course: Detox Protocol Followed, Detoxed Safely, Responded well, Discharged Condition Good Patient has Accepted a Rehab Referral to: [facility] ([place], [place]) - Medication Discharge Medications: Ambulatory Orders Clonazepam [Klonopin] 2 mg PO DAILY 08/03/18 Quetiapine Fumarate [Seroquel -] 400 mg PO HS 08/03/18 Sertraline HCl [Zoloft] 100 mg PO DAILY 08/03/18 - Diagnosis (1) Alcohol dependence with uncomplicated withdrawal Status: Acute (2) At risk for dehydration due to poor fluid intake Status: Acute (3) Cocaine dependence Status: Acute Qualifiers: Substance use status: uncomplicated Qualified Code(s): F14.20 - Cocaine dependence, uncomplicated (4) Nicotine dependence Status: Chronic Qualifiers: Nicotine product type: cigarettes Substance use status: in withdrawal Qualified Code(s): F17.213 - Nicotine dependence, cigarettes, with withdrawal (5) PTSD (post-traumatic stress disorder) Status: Chronic (6) Positive PPD Status: Resolved (7) Non-compliance Status: Chronic (8) Substance induced mood disorder Status: Chronic - AMA Did Patient Leave Against Medical Advice: No
== END 2018-08-07 10:07 | disposition home or self-care (01) | DRG 774 ==
LOC: YASAS 14:53 → Y3N 21:33
PROVIDERS: ADMIT Surgery; ATTEND Surgery
PROC: HZ2ZZZZ Detoxification Services for Substance Abuse Treatment (ICD-10-PCS; principal; 2018-08-03)
DX: F10.230 Alcohol dependence with withdrawal, uncomplicated (principal); F14.20 Cocaine dependence, uncomplicated; F17.213 Nicotine dependence, cigarettes, with withdrawal; F19.24 Other psychoactive substance dependence with psychoactive substance-induced mood disorder; F41.9 Anxiety disorder, unspecified; F43.10 Post-traumatic stress disorder, unspecified; R76.11 Nonspecific reaction to tuberculin skin test without active tuberculosis; Z91.89 Other specified personal risk factors, not elsewhere classified; Z91.19 Patient's noncompliance with other medical treatment and regimen
CPT/HCPCS: 36415; 80053; 81003; 81015; 85027; 86593; 87389

== ENCOUNTER 2018-08-24 19:57 | Inpatient (IN) | payer OTHER ==
[2018-08-24 20:44] VITALS: BMI 20.7
--- NOTE | 2018-08-24 22:47 | HP ---
CIWA Score Nausea/Vomitin Muscle Tremors: 2 Anxiety: 2 Agitation: 2 Paroxysmal Sweats: 2 Orientation: 0-Oriented Tacttile Disturbances: 2-Mild Itch/Numbness/Burn Auditory Disturbances: 1-Very Mild Visual Disturbances: 2-Mild Sensitivity Headache: 2-Mild CIWA-Ar Total Score: 17 - Admission Criteria OASAS Guidelines: Admission for Medically Managed Detox: Requires at least one of the followin. CIWA greater than 12 2. Seizures within the past 24 hours 3. Delirium tremens within the past 24 hours 4. Hallucinations within the past 24 hours 5. Acute intervention needed for co occurring medical disorder 6. Acute intervention needed for co occurring psychiatric disorder 7. Severe withdrawal that cannot be handled at a lower level of care (continued vomiting, continued diarrhea, abnormal vital signs) requiring intravenous medication and/or fluids 8. Admission ROS S - HPI Chief Complaint: DEPENDENT ON ETOH, CRACK/COCCAINE COUGH WITH GREENISH SPUTUM FOR ABOUT 10 DAYS DENIES: FEVER, HEMOPTYSIS Allergies/Adverse Reactions: Allergies Allergy/AdvReac Type Severity Reaction Status Date / Time No Known Allergies Allergy Verified 08/24/18 20:57 History of Present Illness: THE PT. IS REQUESTING ADMISSION TO THE DETOX UNIT AND CAME FOR MEDICAL CLEARANCE Exam Limitations: No Limitations - Ebola screening Have you traveled outside of the country in the last 21 days: No (N) Have you had contact with anyone from an Ebola affected area: No Have you been sick,other than usual withdrawal symptoms: No Do you have a fever: No - Review of Systems Constitutional: See HPI, Loss of Appetite, Malaise, Weakness, Unexplained wgt Loss EENT: reports: See HPI Respiratory: reports: See HPI, Productive cough Cardiac: reports: See HPI GI: reports: See HPI, Nausea, Poor Appetite, Poor Fluid Intake, Indigestion, Abdominal cramping : reports: See HPI Musculoskeletal: reports: See HPI, Muscle Pain, Muscle Weakness Integumentary: reports: See HPI, Flushing, Sweating Neuro: reports: See HPI, Headache, Tremors, Weakness Endocrine: reports: See HPI Hematology: reports: See HPI Psychiatric: reports: Judgement Intact, Orientated x3, Anxious, Depressed Patient History - Patient Medical History Hx Anemia: No Hx Asthma: No Hx Chronic Obstructive Pulmonary Disease (COPD): No Hx Cancer: No Hx Cardiac Disorders: No Hx Congestive Heart Failure: No Hx Hypertension: No Hx Hypercholesterolemia: No Hx Pacemaker: No HX Cerebrovascular Accident: No Hx Seizures: No Hx Dementia: No Hx Diabetes: No Hx Gastrointestinal Disorders: No Hx Liver Disease: No Hx Genitourinary Disorders: No Hx Sexually Transmitted Disorders: No Hx Renal Disease (ESRD): No Hx Thyroid Disease: No Hx Human Immunodeficiency Virus (HIV): No Hx Hepatitis C: No Hx Depression: Yes (AND ANXIETY) Hx Suicide Attempt: No Hx Bipolar Disorder: No Hx Schizophrenia: No - Patient Surgical History Past Surgical History: Yes Hx Neurologic Surgery: No Hx Cataract Extraction: No Hx Cardiac Surgery: No Hx Lung Surgery: No Hx Breast Surgery: No Hx Breast Biopsy: No Hx Abdominal Surgery: No Hx Appendectomy: Yes (IN 1999) Hx Cholecystectomy: No Hx Genitourinary Surgery: No Hx Section: No Hx Orthopedic Surgery: No Hx Hysterectomy: No Anesthesia Reaction: No - PPD History Results: CXR(-) 05/13/18 - Smoking Cessation Smoking history: Current every day smoker Have you smoked in the past 12 months: Yes Aproximately how many cigarettes per day: 20 Cigars Per Day: 0 Hx Chewing Tobacco Use: No Initiated information on smoking cessation: Yes 'Breaking Loose' booklet given: 08/24/18 - Substances abused Alcohol Substance route: Oral Frequency: 3-6 times per week Amount used: it varies - liquor 1 pint every other day/BEER 1-2 X 6PKS ON ALT. DAY Age of first use: Date of last use: 08/24/18 Crack Substance route: Smoking Frequency: No use in 30 days Amount used: I don't know Age of first use: 19 Date of last use: 08/24/18 Cocaine Substance route: Inhalation Frequency: 3-6 times per week Amount used: over 200 dollars Age of first use: 19 Date of last use: 08/24/18 Family Disease History - Family Disease History Family Disease History: Diabetes: Mother (), Brother, [place]: Father ( throat ), Other: Mother, Sister (NO SISTER) Admission Physical Exam BHS - Vital Signs Vital Signs: Vital Signs - 24 hr 08/24/18 20:29 Temperature 98.1 F Pulse Rate 89 Respiratory 18 Rate Blood Pressure 97/62 - Physical General Appearance: Yes: No Apparent Distress, Appropriately Dressed, Thin, Tremorous, Sweating, Anxious HEENTM: Yes: Hearing grossly Normal, Normocephalic, Normal Voice, LEONCIO, Pharynx Normal Respiratory: Yes: Chest Non-Tender, Normal Breath Sounds, No Respiratory Distress, No Accessory Muscle Use, Crackles, Rhonchi Neck: Yes: No masses,lesions,Nodules, Supple, Trachea in good position Breast: Yes: Axillae without masses Cardiology: Yes: Regular Rhythm, S1, S2, Tachycardia Abdominal: Yes: Normal Bowel Sounds, Non Tender, Flat Back: Yes: Normal Inspection Musculoskeletal: Yes: full range of Motion, Gait Steady, Pelvis Stable, Muscle Pain, Muscle weakness Extremities: Yes: Normal Capillary Refill, Normal Range of Motion, Non-Tender, Tremors 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 NML intact, Fully Oriented, Alert, Motor Strength 5/5, Normal Response Integumentary: Yes: Warm, Moist Lymphatic: Yes: Within Normal Limits - Diagnostic (1) Anxiety and depression Current Visit: Yes Status: Chronic (2) Bronchitis Current Visit: Yes Status: Acute (3) Alcohol dependence with uncomplicated withdrawal Current Visit: No Status: Chronic (4) Cocaine dependence, uncomplicated Current Visit: No Status: Chronic (5) Nicotine dependence Current Visit: No Status: Chronic Qualifiers: Nicotine product type: cigarettes Substance use status: in withdrawal Qualified Code(s): F17.213 - Nicotine dependence, cigarettes, with withdrawal Cleared for Admission [facility] - Detox or Rehab [facility] Level of Care: Medically Supervised Detox Regimen/Protocol: Librium Inpatient Rehab Admission - Rehab Decision to Admit Inpatient rehab admission?: No
[2018-08-24] MEDS ORDERED: chlordiazePOXIDE HCL 25 MG CAPSULE PO ONE (22:54)
[2018-08-24] MEDS ORDERED: hydrOXYzine PAMOATE 25 MG CAPSULE (FP) PO PRN (22:54)
[2018-08-24] MEDS ORDERED: chlordiazePOXIDE HCL 25 MG CAPSULE PO PRN (22:54)
[2018-08-24] MEDS ORDERED: BISMUTH SUBSALICYLATE 524 MG/30 ML UD PO PRN (22:54)
[2018-08-24] MEDS ORDERED: IBUPROFEN 400 MG TABLET (FP) PO PRN (22:54)
[2018-08-24] MEDS ORDERED: ACETAMINOPHEN 325 MG TABLET (FP) PO PRN ×2 (22:54)
[2018-08-24] MEDS ORDERED: MAGNESIUM HYDROX 2400MG/30ML ORAL SUSPENSION 30 ML CUP PO PRN (22:54)
[2018-08-24] MEDS ORDERED: MAGNESIUM CITRATE 300 ML BOTTLE PO PRN (22:54)
[2018-08-24] MEDS ORDERED: METHOCARBAMOL 500 MG TABLET PO PRN (22:54)
[2018-08-24] MEDS ORDERED: MELATONIN 5 MG TABLETS PO PRN (22:54)
[2018-08-24] MEDS ORDERED: MAG HYDROX/AL HYDROX/SIMETH 30 ML UNIT-DOSE CUP PO PRN (22:54)
[2018-08-24] MEDS ORDERED: MENTHOL/PHENOL 1 EACH UD MM PRN (22:54)
[2018-08-24] MEDS ORDERED: ALBUTEROL SO4 2.5/IPRATROPIUM 0.5 INH SOL 3 ML VIAL.NEB. NEB PRN (22:56)
[2018-08-25] MEDS: AMOX TR/POT CLAV 875MG/125MG TABLETS (FP) PO SCH ×3 (00:22→17:45)
[2018-08-25] MEDS: chlordiazePOXIDE HCL 25 MG CAPSULE PO SCH ×6 (00:22→22:30)
[2018-08-25 10:43] LABS: HEMATOCRIT 39.8 % (35.4-49); HEMOGLOBIN 13.7 GM/dL (11.7-16.9); MCH 30.8 pg (25.7-33.7); MCHC 34.4 g/dl (32.0-35.9); MEAN CELL VOLUME 89.5 fl (80-96); MEAN PLT VOLUME 9.6 fl (7.5-11.1); PLATELET COUNT 212 K/MM3 (134-434); RBC 4.45 M/mm3 (4.00-5.60); RDW 13.5 % (11.9-15.9); WHITE BLOOD COUNT 6.9 K/mm3 (4.0-10.0)
[2018-08-25 11:02] LABS: ALBUMIN 3.2 g/dl (3.4-5.0); ALK PHOS 68 U/L (45-117); ANION GAP 5 MMOL/L (8-16); BILIRUBIN,TOTAL 0.5 mg/dL (0.2-1); BLOOD UREA NITROGEN 16 mg/dL (7-18); CALCIUM 8.7 mg/dL (8.5-10.1); CHLORIDE 106 mmol/L (98-107); CO2 30 mmol/L (21-32); GLUCOSE,RANDOM 93 mg/dL (74-106); POTASSIUM 4.3 mmol/L (3.5-5.1); SGOT/AST 8 U/L (15-37); SGPT/ALT 14 U/L (13-61); SODIUM 141 mmol/L (136-145)
--- NOTE | 2018-08-25 11:13 | PN ---
S CIWA - CIWA Score Nausea/Vomitin Muscle Tremors: 2 Anxiety: 2 Agitation: 2 Paroxysmal Sweats: 1-Minimal Palms Moist Orientation: 0-Oriented Tacttile Disturbances: 1-Very Mild Itch/Numbness Auditory Disturbances: 1-Very Mild Visual Disturbances: 0-None Headache: 2-Mild CIWA-Ar Total Score: 13 BHS Progress Note (SOAP) Subjective: alert,irritable,anxious,interrupted sleep,tremor Objective: 08/25/18 11:12 Vital Signs Temperature 97.7 F 08/25/18 09:49 Pulse Rate 75 08/25/18 09:49 Respiratory Rate 20 08/25/18 09:49 Blood Pressure 100/58 L 08/25/18 09:49 O2 Sat by Pulse Oximetry (%) Laboratory Last Values WBC 6.9 K/mm3 (4.0-10.0) 08/25/18 07:00 RBC 4.45 M/mm3 (4.00-5.60) 08/25/18 07:00 Hgb 13.7 GM/dL (11.7-16.9) 08/25/18 07:00 Hct 39.8 % (35.4-49) 08/25/18 07:00 MCV 89.5 fl (80-96) 08/25/18 07:00 MCH 30.8 pg (25.7-33.7) 08/25/18 07:00 MCHC 34.4 g/dl (32.0-35.9) 08/25/18 07:00 RDW 13.5 % (11.9-15.9) 08/25/18 07:00 Plt Count 212 K/MM3 (134-434) 08/25/18 07:00 MPV 9.6 fl (7.5-11.1) 08/25/18 07:00 Sodium 141 mmol/L (136-145) 08/25/18 07:00 Potassium 4.3 mmol/L (3.5-5.1) 08/25/18 07:00 Chloride 106 mmol/L (98-107) 08/25/18 07:00 Carbon Dioxide 30 mmol/L (21-32) 08/25/18 07:00 Anion Gap 5 MMOL/L (8-16) L 08/25/18 07:00 BUN 16 mg/dL (7-18) 08/25/18 07:00 Creatinine 1.0 mg/dL (0.55-1.3) 08/25/18 07:00 Creat Clearance w eGFR 78.16 (>60) 08/25/18 07:00 Random Glucose 93 mg/dL (74-106) 08/25/18 07:00 Calcium 8.7 mg/dL (8.5-10.1) 08/25/18 07:00 Total Bilirubin 0.5 mg/dL (0.2-1) 08/25/18 07:00 AST 8 U/L (15-37) L 08/25/18 07:00 ALT 14 U/L (13-61) 08/25/18 07:00 Alkaline Phosphatase 68 U/L (45-117) 08/25/18 07:00 Total Protein 6.0 g/dl (6.4-8.2) L 08/25/18 07:00 Albumin 3.2 g/dl (3.4-5.0) L 08/25/18 07:00 Assessment: 08/25/18 11:12 withdrawal symptom Plan: continue detox
[2018-08-25] MEDS: PRENATAL VITAMINS W/ FOLIC ACID TABLET (FP) PO SCH (12:27)
[2018-08-25] MEDS: NICOTINE 14 MG/24 HOURS TOPICAL PATCH TD SCH (12:27)
--- NOTE | 2018-08-25 12:32 | PN ---
S Progress Note Note: pt was stating that he feels too drowsy and want his dose of librium decreased. Librium has been decreased accordingly to accommodate pt withdrawals and make him feel comfortable and not too sleepy/tired. Pt has agreed with new detox regime.
[2018-08-25] MEDS ORDERED: hydrOXYzine HCL 25 MG TABLET (FP) PO PRN (18:44)
--- NOTE | 2018-08-25 22:08 | PN ---
S Progress Note Note: Vital Signs Temperature 97.7 F 08/25/18 21:59 Pulse Rate 77 08/25/18 21:59 Respiratory Rate 18 08/25/18 21:59 Blood Pressure 109/51 L 08/25/18 21:59 O2 Sat by Pulse Oximetry (%) c/o of cough Guaifenesin 10 mg prn q6h ordered increase fluids continue to monitor
[2018-08-25] MEDS: THIAMINE HCL 100 MG TABLET (FP) PO SCH (22:18)
[2018-08-25] MEDS: guaiFENesin 200 MG/10 ML 10 ML UNIT-DOSE CUPS PO PRN (22:41)
[2018-08-26] MEDS ORDERED: chlordiazePOXIDE HCL 25 MG CAPSULE PO SCH (06:00)
[2018-08-26] MEDS ORDERED: chlordiazePOXIDE HCL 10 MG CAPSULE PO ONE (06:00)
[2018-08-26] MEDS: chlordiazePOXIDE HCL 25 MG CAPSULE PO SCH (06:57)
[2018-08-26] MEDS: chlordiazePOXIDE 5 MG CAPSULE PO SCH ×3 (06:59→23:30)
[2018-08-26] MEDS: AMOX TR/POT CLAV 875MG/125MG TABLETS (FP) PO SCH ×2 (06:59→17:58)
--- NOTE | 2018-08-26 10:08 | PN ---
S CIWA - CIWA Score Nausea/Vomitin-No Nausea/No Vomiting Muscle Tremors: 3 Anxiety: 3 Agitation: 3 Paroxysmal Sweats: 3 Orientation: 0-Oriented Tacttile Disturbances: 0-None Auditory Disturbances: 0-None Visual Disturbances: 0-None Headache: 0-None Present CIWA-Ar Total Score: 12 S Progress Note (SOAP) Subjective: sweats cough agitation anxiety Objective: 08/26/18 10:06 Vital Signs Temperature 98.0 F 08/26/18 09:16 Pulse Rate 84 08/26/18 09:16 Respiratory Rate 18 08/26/18 09:16 Blood Pressure 111/74 08/26/18 09:16 O2 Sat by Pulse Oximetry (%) Laboratory Tests 08/25/18 08/25/18 08/25/18 07:00 07:00 07:00 WBC 6.9 RBC 4.45 Hgb 13.7 Hct 39.8 MCV 89.5 MCH 30.8 MCHC 34.4 RDW 13.5 Plt Count 212 MPV 9.6 Sodium 141 Potassium 4.3 Chloride 106 Carbon Dioxide 30 Anion Gap 5 L BUN 16 Creatinine 1.0 Creat Clearance w eGFR 78.16 Random Glucose 93 Calcium 8.7 Total Bilirubin 0.5 AST 8 L ALT 14 Alkaline Phosphatase 68 Total Protein 6.0 L Albumin 3.2 L RPR Titer Nonreactive aaox3 ambulating no acute distress Assessment: 08/26/18 10:07 withdrawal sx Plan: continue detox increase fluids robitussin prn
[2018-08-26] MEDS: PRENATAL VITAMINS W/ FOLIC ACID TABLET (FP) PO SCH (10:48)
[2018-08-26] MEDS: NICOTINE 14 MG/24 HOURS TOPICAL PATCH TD SCH (10:48)
[2018-08-26] MEDS: guaiFENesin 200 MG/10 ML 10 ML UNIT-DOSE CUPS PO PRN (17:58)
[2018-08-26] MEDS ORDERED: chlordiazePOXIDE HCL 10 MG CAPSULE PO SCH (23:00)
[2018-08-26] MEDS ORDERED: chlordiazePOXIDE HCL 10 MG CAPSULE PO PRN (23:00)
[2018-08-26] MEDS: THIAMINE HCL 100 MG TABLET (FP) PO SCH (23:30)
[2018-08-27] MEDS: chlordiazePOXIDE HCL 10 MG CAPSULE PO SCH ×2 (06:33→11:08)
[2018-08-27] MEDS: AMOX TR/POT CLAV 875MG/125MG TABLETS (FP) PO SCH ×2 (08:34→18:05)
[2018-08-27] MEDS: guaiFENesin 200 MG/10 ML 10 ML UNIT-DOSE CUPS PO PRN ×2 (09:19→21:18)
--- NOTE | 2018-08-27 11:03 | PN ---
S Progress Note (SOAP) Subjective: alert,irritable,anxious,interrupted sleep Objective: 08/27/18 11:02 Vital Signs Temperature 98.1 F 08/27/18 09:13 Pulse Rate 67 08/27/18 09:13 Respiratory Rate 18 08/27/18 09:13 Blood Pressure 99/74 08/27/18 09:13 O2 Sat by Pulse Oximetry (%) Assessment: 08/27/18 11:02 withdrawal symptom Plan: continue detox,discharge in am
[2018-08-27] MEDS: NICOTINE 14 MG/24 HOURS TOPICAL PATCH TD SCH (11:09)
[2018-08-27] MEDS: PRENATAL VITAMINS W/ FOLIC ACID TABLET (FP) PO SCH (11:09)
--- NOTE | 2018-08-27 11:15 | PN ---
[facility] Progress Note Note: patient has history of anxiety and depression ,supposed to take zoloft 100 mgs po daily and reroquel 400 mgs po hs, non compliance with medication,do not want to see psychiatrist and do not want to take medication, stated he is doing well,do not need medication has own psychiatrist,will follow up with his psychiatrist after discharge
[2018-08-27] MEDS: THIAMINE HCL 100 MG TABLET (FP) PO SCH (22:22)
[2018-08-27] MEDS ORDERED: chlordiazePOXIDE HCL 10 MG CAPSULE PO SCH (23:00)
[2018-08-28] MEDS ORDERED: chlordiazePOXIDE 5 MG CAPSULE PO ONE (06:00)
[2018-08-28 07:01] VITALS: BP 104/63; PULSE 56; TEMP 97.3
[2018-08-28] MEDS: AMOX TR/POT CLAV 875MG/125MG TABLETS (FP) PO SCH (07:59)
--- NOTE | 2018-08-28 09:04 | DS ---
[facility] Detox Discharge Summary Admission Date: 08/24/18 Discharge Date: 08/28/18 - History Present History: Alcohol Dependence, Cocaine Dependence - Physical Exam Results Vital Signs: Vital Signs Temperature 97.3 F L 08/28/18 06:00 Pulse Rate 56 L 08/28/18 06:00 Respiratory Rate 18 08/28/18 06:00 Blood Pressure 104/63 08/28/18 06:00 O2 Sat by Pulse Oximetry (%) - Treatment Hospital Course: Detox Protocol Followed, Detoxed Safely, Responded well, Discharged Condition Good, Rehab Referral Accepted - Medication Discharge Medications: Ambulatory Orders Quetiapine Fumarate [Seroquel -] 400 mg PO HS 08/03/18 Sertraline HCl [Zoloft] 100 mg PO DAILY 08/03/18 - AMA Did Patient Leave Against Medical Advice: No (pt declined referral/going home.)
[2018-08-28] MEDS: PRENATAL VITAMINS W/ FOLIC ACID TABLET (FP) PO SCH (11:06)
[2018-08-28] MEDS: NICOTINE 14 MG/24 HOURS TOPICAL PATCH TD SCH (11:06)
== END 2018-08-28 11:15 | disposition home or self-care (01) | DRG 774 ==
LOC: YASAS 19:57 → Y6N 23:34
PROVIDERS: ADMIT Surgery; ATTEND Surgery
PROC: HZ2ZZZZ Detoxification Services for Substance Abuse Treatment (ICD-10-PCS; principal; 2018-08-24)
DX: F10.230 Alcohol dependence with withdrawal, uncomplicated (principal); F14.20 Cocaine dependence, uncomplicated; F17.213 Nicotine dependence, cigarettes, with withdrawal; F41.9 Anxiety disorder, unspecified; F32.9 Major depressive disorder, single episode, unspecified; J20.9 Acute bronchitis, unspecified; R00.0 Tachycardia, unspecified; R05 Cough
CPT/HCPCS: 36415; 80053; 85027; 86593

== ENCOUNTER 2018-09-02 13:45 | Inpatient (IN) | payer OTHER ==
[2018-09-02 14:47] VITALS: BMI 24.7
--- NOTE | 2018-09-02 14:54 | HP ---
CIWA Score - Admission Criteria OASAS Guidelines: Admission for Medically Managed Detox: Requires at least one of the followin. CIWA greater than 12 2. Seizures within the past 24 hours 3. Delirium tremens within the past 24 hours 4. Hallucinations within the past 24 hours 5. Acute intervention needed for co occurring medical disorder 6. Acute intervention needed for co occurring psychiatric disorder 7. Severe withdrawal that cannot be handled at a lower level of care (continued vomiting, continued diarrhea, abnormal vital signs) requiring intravenous medication and/or fluids 8. Admission ROS S - HPI Chief Complaint: alcohol and cocaine rehabilitation Allergies/Adverse Reactions: Allergies Allergy/AdvReac Type Severity Reaction Status Date / Time No Known Allergies Allergy Verified 09/02/18 14:42 History of Present Illness: 53 yo male with hx of nicotine, alcohol and crack/cocaine dependence is here seeking rehabilitation Completed detox at [facility] 08/24/18 -08/28/18 Denies medical problems. Psych: PTSD, anxiety and depression linked to [place]. Denies hx of seizures or blackouts Exam Limitations: No Limitations - Ebola screening Have you traveled outside of the country in the last 21 days: No Have you had contact with anyone from an Ebola affected area: No Do you have a fever: No - Review of Systems Constitutional: No Symptoms Reported EENT: reports: No Symptoms Reported Respiratory: reports: No Symptoms reported Cardiac: reports: No Symptoms Reported GI: reports: No Symptoms Reported : reports: No Symptoms Reported Musculoskeletal: reports: Back Pain Integumentary: reports: No Symptoms Reported Neuro: reports: No Symptoms reported Endocrine: reports: No Symptoms Reported Hematology: reports: No Symptoms Reported Psychiatric: reports: Mood/Affect Appropiate, Orientated x3 Other Systems: Reviewed and Negative Patient History - Patient Medical History Hx Anemia: No Hx Asthma: No Hx Chronic Obstructive Pulmonary Disease (COPD): No Hx Cancer: No Hx Cardiac Disorders: No Hx Congestive Heart Failure: No Hx Hypertension: No Hx Hypercholesterolemia: No Hx Pacemaker: No HX Cerebrovascular Accident: No Hx Seizures: No Hx Dementia: No Hx Diabetes: No Hx Gastrointestinal Disorders: No Hx Liver Disease: No Hx Genitourinary Disorders: No Hx Sexually Transmitted Disorders: No Hx Renal Disease (ESRD): No Hx Thyroid Disease: No Hx Human Immunodeficiency Virus (HIV): No Hx Hepatitis C: No Hx Depression: Yes Hx Suicide Attempt: No Hx Bipolar Disorder: No Hx Schizophrenia: No Other Medical History: Anxiety, PTSD - Patient Surgical History Past Surgical History: Yes Hx Neurologic Surgery: No Hx Cataract Extraction: No Hx Cardiac Surgery: No Hx Lung Surgery: No Hx Breast Surgery: No Hx Breast Biopsy: No Hx Abdominal Surgery: No Hx Appendectomy: Yes (IN 1999) Hx Cholecystectomy: No Hx Genitourinary Surgery: No Hx Section: No Hx Orthopedic Surgery: No Hx Hysterectomy: No Anesthesia Reaction: No - PPD History Results: CXR(-) 05/13/18 PPD to be Administered?: No - Smoking Cessation Smoking history: Current every day smoker Have you smoked in the past 12 months: Yes Aproximately how many cigarettes per day: 20 Cigars Per Day: 0 Hx Chewing Tobacco Use: No Initiated information on smoking cessation: Yes 'Breaking Loose' booklet given: 09/02/18 - Substance & Tx. History Hx Alcohol Use: Yes Hx Substance Use: Yes Substance Use Type: Alcohol, Cocaine Hx Substance Use Treatment: Yes (Completed detox at [facility] 08/24/18 -08/28/18) - Substances abused Alcohol Substance route: Oral Frequency: 3-6 times per week Amount used: it varies - liquor 1 pint every other day/BEER 1-2 X 6PKS ON ALT. DAY Age of first use: 19 Date of last use: 08/24/18 Crack Substance route: Smoking Frequency: 3-6 times per week Amount used: $100 Age of first use: 19 Date of last use: 08/29/18 Cocaine Substance route: Inhalation Frequency: 3-6 times per week Amount used: over 200 dollars Age of first use: 19 Date of last use: 08/24/18 Family Disease History - Family Disease History Family Disease History: Diabetes: Mother (), Brother, [place]: Father ( throat ), Other: Mother, Sister (NO SISTER) Admission Physical Exam BHS - Vital Signs Vital Signs: Vital Signs - 24 hr 09/02/18 14:43 Temperature 97.7 F Pulse Rate 70 Respiratory 20 Rate Blood Pressure 109/68 - Physical General Appearance: Yes: No Apparent Distress, Appropriately Dressed, Thin HEENTM: Yes: EOMI, Hearing grossly Normal, Normal ENT Inspection, Normocephalic , Normal Voice, LEONCIO, Pharynx Normal, Tm's normal, Other (poor dentition) Respiratory: Yes: Chest Non-Tender, Lungs Clear, Normal Breath Sounds, No Respiratory Distress, No Accessory Muscle Use Neck: Yes: Within Normal Limits Breast: Yes: Breast Exam Deferred Cardiology: Yes: Regular Rhythm, Regular Rate Abdominal: Yes: Normal Bowel Sounds, Non Tender, Flat, Soft Genitourinary: Yes: Within Normal Limits Back: Yes: Normal Inspection Musculoskeletal: Yes: full range of Motion, Gait Steady, Pelvis Stable, Back pain Extremities: Yes: Normal Capillary Refill, Normal Inspection, Normal Range of Motion, Non-Tender 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: 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: 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 NML intact, Fully Oriented, Alert, Motor Strength 5/5, Normal Mood/Affect Integumentary: Yes: Normal Color, Dry, Warm Lymphatic: Yes: Within Normal Limits - Diagnostic (1) Alcohol dependence Current Visit: Yes Status: Active (2) Cocaine dependence Current Visit: Yes Status: Acute Qualifiers: Substance use status: uncomplicated Qualified Code(s): F14.20 - Cocaine dependence, uncomplicated (3) Nicotine dependence Current Visit: Yes Status: Chronic Qualifiers: Nicotine product type: cigarettes Substance use status: in withdrawal Qualified Code(s): F17.213 - Nicotine dependence, cigarettes, with withdrawal Breathalyzer - Breathalyzer Breathalyzer: 0 Urine Drug Screen - Test Device Lot number: [id number] Expiration date: 04/17/20 - Control Is test valid?: Yes - Results Drug screen NEGATIVE: No Urine drug screen results: MARITA-Cocaine, BZO-Benzodiazepines Inpatient Rehab Admission - Rehab Decision to Admit Inpatient rehab admission?: Yes - Initial Determination Are CD services needed?: Yes Free of communicable disease: Yes Not in need of hospitalization: Yes - Rehab Admission Criteria Previous failed treatment: Yes Poor recovery environment: Yes Comorbidities: Yes Lacks judgement: Yes Patient is meeting Inpatient Rehab admission criteria:: Yes
[2018-09-02] MEDS ORDERED: guaiFENesin 200 MG/10 ML 10 ML UNIT-DOSE CUPS PO PRN (15:01)
[2018-09-02] MEDS ORDERED: MAGNESIUM CITRATE 300 ML BOTTLE PO PRN (15:01)
[2018-09-02] MEDS ORDERED: LOPERAMIDE HCL 2 MG CAPSULE PO PRN (15:01)
[2018-09-02] MEDS ORDERED: hydrOXYzine PAMOATE 50 MG CAPSULE (FP) PO PRN (15:01)
[2018-09-02] MEDS ORDERED: P-EPHED 60MG/TRIPROLIDI 2.5MG TABLET PO PRN (15:01)
[2018-09-02] MEDS ORDERED: NICOTINE POLACRILEX 2 MG GUM BC PRN (15:01)
[2018-09-02] MEDS ORDERED: MENTHOL/PHENOL 1 EACH UD MM PRN (15:01)
[2018-09-02] MEDS ORDERED: MAGNESIUM HYDROX 2400MG/30ML ORAL SUSPENSION 30 ML CUP PO PRN (15:01)
[2018-09-02] MEDS ORDERED: MAG HYDROX/AL HYDROX/SIMETH 30 ML UNIT-DOSE CUP PO PRN (15:01)
[2018-09-02] MEDS: THIAMINE HCL 100 MG TABLET (FP) PO SCH (21:56)
[2018-09-02] MEDS ORDERED: MELATONIN 5 MG TABLETS PO PRN (22:00)
[2018-09-03] MEDS: IBUPROFEN 400 MG TABLET (FP) PO PRN ×2 (07:51→15:48)
[2018-09-03] MEDS: NICOTINE 14 MG/24 HOURS TOPICAL PATCH TD SCH (10:51)
[2018-09-03] MEDS: PRENATAL VITAMINS W/ FOLIC ACID TABLET (FP) PO SCH (10:51)
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
[2018-09-03] MEDS: THIAMINE HCL 100 MG TABLET (FP) PO SCH (21:59)
[2018-09-04] MEDS: PRENATAL VITAMINS W/ FOLIC ACID TABLET (FP) PO SCH (11:03)
[2018-09-04] MEDS: NICOTINE 14 MG/24 HOURS TOPICAL PATCH TD SCH (11:03)
[2018-09-04] MEDS: IBUPROFEN 400 MG TABLET (FP) PO PRN (19:52)
[2018-09-04] MEDS: THIAMINE HCL 100 MG TABLET (FP) PO SCH (21:37)
[2018-09-04] MEDS: ACETAMINOPHEN 325 MG TABLET (FP) PO PRN (21:37)
[2018-09-05] MEDS: NICOTINE 14 MG/24 HOURS TOPICAL PATCH TD SCH (10:31)
[2018-09-05] MEDS: PRENATAL VITAMINS W/ FOLIC ACID TABLET (FP) PO SCH (10:31)
[2018-09-05] MEDS: THIAMINE HCL 100 MG TABLET (FP) PO SCH (22:26)
[2018-09-06] MEDS: NICOTINE 14 MG/24 HOURS TOPICAL PATCH TD SCH (10:36)
[2018-09-06] MEDS: PRENATAL VITAMINS W/ FOLIC ACID TABLET (FP) PO SCH (10:37)
[2018-09-06] MEDS: THIAMINE HCL 100 MG TABLET (FP) PO SCH (22:34)
[2018-09-07] MEDS: PRENATAL VITAMINS W/ FOLIC ACID TABLET (FP) PO SCH (11:11)
[2018-09-07] MEDS: NICOTINE 14 MG/24 HOURS TOPICAL PATCH TD SCH (11:11)
[2018-09-07] MEDS: THIAMINE HCL 100 MG TABLET (FP) PO SCH (21:51)
[2018-09-08] MEDS: PRENATAL VITAMINS W/ FOLIC ACID TABLET (FP) PO SCH (09:29)
[2018-09-08] MEDS: ACETAMINOPHEN 325 MG TABLET (FP) PO PRN ×2 (09:30→15:26)
[2018-09-08] MEDS: NICOTINE 14 MG/24 HOURS TOPICAL PATCH TD SCH (09:31)
[2018-09-08 16:21] VITALS: BP 100/65; PULSE 58; TEMP 97.7
[2018-09-08] MEDS: THIAMINE HCL 100 MG TABLET (FP) PO SCH (22:00)
[2018-09-09] MEDS: PRENATAL VITAMINS W/ FOLIC ACID TABLET (FP) PO SCH (09:21)
[2018-09-09] MEDS: NICOTINE 14 MG/24 HOURS TOPICAL PATCH TD SCH (09:21)
--- NOTE | 2018-09-09 14:58 | PN ---
[facility] Progress Note Note: Pt completed rehab and is discharged today. Pt met with his counselor Pamela Price and has been referred to [facility] Outpatient program at [address] [place] [id number]. Pt reports that he has a PCP at [facility]. Pt is AOX3. Denies any SI/HI. Vital Signs - 24 hr 09/09/18 09/09/18 09/09/18 00:30 03:30 06:41 Respiratory 18 18 18 Rate
--- NOTE | 2018-09-09 15:18 | PN ---
S Progress Note Note: PT COMPLETED REHAB AND DISCHARGED TODAY. PT MET WITH HIS COUNSELOR TODAY AND WAS REFERRED TO [facility] ON [address] [place], [place] FOR CD AFTERCARE. PT REPORTS HE HAS A PCP WITH [facility]. PT IS ALERT O X 3. DENIES S/H/I. Home Medications Medication Instructions Recorded Quetiapine Fumarate [Seroquel -] 400 mg PO HS 08/03/18 Sertraline HCl [Zoloft] 100 mg PO DAILY 08/03/18 Vital Signs - 24 hr 09/09/18 09/09/18 09/09/18 00:30 03:30 06:41 Respiratory 18 18 18 Rate Vital Signs (72 hours) 09/07/18 09/07/18 09/07/18 00:30 03:30 06:43 Temperature Pulse Rate Respiratory 18 18 18 Rate Blood Pressure 09/08/18 09/08/18 09/08/18 00:30 03:30 06:39 Temperature Pulse Rate Respiratory 18 18 18 Rate Blood Pressure 09/08/18 09/09/18 09/09/18 15:00 00:30 03:30 Temperature 97.7 F Pulse Rate 58 L Respiratory 18 18 18 Rate Blood Pressure 100/65 09/09/18 06:41 Temperature Pulse Rate Respiratory 18 Rate Blood Pressure NAD MEDICALLY STABLE PLAN:FOLLOW UP WITH CD RECOMMENDATION ON 09/14/18 AT 1:30 P.M FOLLOW UP WITH MEDICAL MANAGEMENT ABOVE WITHIN 1-2 WEEKS AFTER DISCHARGE.
== END 2018-09-09 10:20 | disposition home or self-care (01) | DRG 772 ==
LOC: YASAS 13:45 → Y5N 16:19
PROVIDERS: ADMIT Neuromusculoskeletal Medicine & OMM; ATTEND Neuromusculoskeletal Medicine & OMM
PROC: HZ42ZZZ Group Counseling for Substance Abuse Treatment, Cognitive-Behavioral (ICD-10-PCS; principal; 2018-09-02)
DX: F10.20 Alcohol dependence, uncomplicated (principal); F14.20 Cocaine dependence, uncomplicated; F17.210 Nicotine dependence, cigarettes, uncomplicated; Z91.19 Patient's noncompliance with other medical treatment and regimen; Z87.438 Personal history of other diseases of male genital organs

== ENCOUNTER 2018-10-02 11:38 | Inpatient (IN) | payer OTHER ==
[2018-10-02 12:52] VITALS: BMI 23.3
--- NOTE | 2018-10-02 13:42 | HP ---
CIWA Score Nausea/Vomitin-No Nausea/No Vomiting Muscle Tremors: 3 Anxiety: 3 Agitation: 3 Paroxysmal Sweats: 3 Orientation: 0-Oriented Tacttile Disturbances: 0-None Auditory Disturbances: 0-None Visual Disturbances: 0-None Headache: 0-None Present CIWA-Ar Total Score: 12 - Admission Criteria OASAS Guidelines: Admission for Medically Managed Detox: Requires at least one of the followin. CIWA greater than 12 2. Seizures within the past 24 hours 3. Delirium tremens within the past 24 hours 4. Hallucinations within the past 24 hours 5. Acute intervention needed for co occurring medical disorder 6. Acute intervention needed for co occurring psychiatric disorder 7. Severe withdrawal that cannot be handled at a lower level of care (continued vomiting, continued diarrhea, abnormal vital signs) requiring intravenous medication and/or fluids 8. Admission ROS BHS - HPI Chief Complaint: I need to come back again and get it right. Allergies/Adverse Reactions: Allergies Allergy/AdvReac Type Severity Reaction Status Date / Time No Known Allergies Allergy Verified 10/02/18 12:45 History of Present Illness: pt is a 53yr old male with a history of alcohol and cocaine dependence seeking detox for treatment. Exam Limitations: No Limitations - Ebola screening Have you traveled outside of the country in the last 21 days: No (N) Have you had contact with anyone from an Ebola affected area: No Have you been sick,other than usual withdrawal symptoms: No Do you have a fever: No - Review of Systems Constitutional: Chills, Diaphoresis, Loss of Appetite, Night Sweats, Changes in sleep EENT: reports: Blurred Vision, Tearing Respiratory: reports: No Symptoms reported Cardiac: reports: No Symptoms Reported GI: reports: Poor Appetite, Poor Fluid Intake, Indigestion : reports: No Symptoms Reported Musculoskeletal: reports: Back Pain, Muscle Pain Integumentary: reports: No Symptoms Reported Neuro: reports: Headache, Tingling, Tremors Endocrine: reports: Excessive Sweating, Flushing, Intolerance to Cold, Intolerance to Heat Hematology: reports: No Symptoms Reported Psychiatric: reports: Judgement Intact, Mood/Affect Appropiate, Orientated x3, Agitated, Anxious Other Systems: Reviewed and Negative Patient History - Patient Medical History Hx Anemia: No Hx Asthma: No Hx Chronic Obstructive Pulmonary Disease (COPD): No Hx Cancer: No Hx Cardiac Disorders: No Hx Congestive Heart Failure: No Hx Hypertension: No Hx Hypercholesterolemia: No Hx Pacemaker: No HX Cerebrovascular Accident: No Hx Seizures: No Hx Dementia: No Hx Diabetes: No Hx Gastrointestinal Disorders: No Hx Liver Disease: No Hx Genitourinary Disorders: No Hx Sexually Transmitted Disorders: No Hx Renal Disease (ESRD): No Hx Thyroid Disease: No Hx Human Immunodeficiency Virus (HIV): No Hx Hepatitis C: No Hx Depression: Yes Hx Suicide Attempt: No Hx Bipolar Disorder: No Hx Schizophrenia: No - Patient Surgical History Past Surgical History: Yes Hx Neurologic Surgery: No Hx Cataract Extraction: No Hx Cardiac Surgery: No Hx Lung Surgery: No Hx Breast Surgery: No Hx Breast Biopsy: No Hx Abdominal Surgery: No Hx Appendectomy: Yes (IN 1999) Hx Cholecystectomy: No Hx Genitourinary Surgery: No Hx Section: No Hx Orthopedic Surgery: No Hx Hysterectomy: No Anesthesia Reaction: No - PPD History Previous Implant?: Yes Documented Results: Negative w/o proof Results: CXR(-) 05/13/18 PPD to be Administered?: No - Reproductive History Patient is a Female of Child Bearing Age (11 -55 yrs old): No - Smoking Cessation Smoking history: Current every day smoker Have you smoked in the past 12 months: Yes Aproximately how many cigarettes per day: 20 Cigars Per Day: 0 Hx Chewing Tobacco Use: No Initiated information on smoking cessation: Yes 'Breaking Loose' booklet given: 10/02/18 - Substance & Tx. History Hx Alcohol Use: Yes Hx Substance Use: Yes Substance Use Type: None, Alcohol, Cocaine Hx Substance Use Treatment: Yes ([facility] a month ago) - Substances abused Alcohol Substance route: Oral Frequency: 3-6 times per week Amount used: it varies - liquor 1 pint every other day/BEER 1-2 X 6PKS ON ALT. DAY Age of first use: Date of last use: 10/02/18 Crack Substance route: Smoking Frequency: 3-6 times per week Amount used: $100 Age of first use: Date of last use: 10/01/18 Cocaine Substance route: Inhalation Frequency: 3-6 times per week Amount used: over 200 dollars Age of first use: Date of last use: 08/24/18 Family Disease History - Family Disease History Family Disease History: Diabetes: Mother (), Brother, [place]: Father ( throat ), Other: Mother, Sister (NO SISTER) Admission Physical Exam BHS - Vital Signs Vital Signs: Vital Signs - 24 hr 10/02/18 12:46 Temperature 97.6 F Pulse Rate 73 Respiratory 20 Rate Blood Pressure 85/57 L - Physical General Appearance: Yes: Appropriately Dressed, Moderate Distress, Thin, Tremorous, Irritable, Sweating, Anxious HEENTM: Yes: Hearing grossly Normal, Nasal Congestion, Rhinorrhea Respiratory: Yes: Lungs Clear, Normal Breath Sounds Neck: Yes: No masses,lesions,Nodules Breast: Yes: Within Normal Limits Cardiology: Yes: Regular Rhythm, Regular Rate, S1, S2 Abdominal: Yes: Normal Bowel Sounds, Soft Genitourinary: Yes: Within Normal Limits Back: Yes: Normal Inspection Musculoskeletal: Yes: Within Normal Limits Extremities: Yes: Normal Capillary Refill, Normal Inspection, Non-Tender, Tremors 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: Yes: Fully Oriented, Alert, Normal Response Integumentary: Yes: Normal Color, Diaphoresis Lymphatic: Yes: Within Normal Limits - Diagnostic (1) At risk for dehydration due to poor fluid intake Current Visit: Yes Status: Chronic (2) Cocaine dependence Current Visit: Yes Status: Chronic Qualifiers: Substance use status: uncomplicated Qualified Code(s): F14.20 - Cocaine dependence, uncomplicated (3) Hypotension Current Visit: Yes Status: Chronic (4) S/P appendectomy Current Visit: No Status: Acute (5) Substance-induced sleep disorder Current Visit: No Status: Acute (6) Alcohol dependence with uncomplicated withdrawal Current Visit: Yes Status: Chronic (7) Anxiety and depression Current Visit: No Status: Chronic (8) Cocaine dependence Current Visit: Yes Status: Chronic Qualifiers: Substance use status: uncomplicated Qualified Code(s): F14.20 - Cocaine dependence, uncomplicated (9) Depressive disorder Current Visit: No Status: Chronic Comment: By history. (10) Nicotine dependence Current Visit: Yes Status: Chronic Qualifiers: Nicotine product type: cigarettes Substance use status: uncomplicated Qualified Code(s): F17.210 - Nicotine dependence, cigarettes, uncomplicated (11) PTSD (post-traumatic stress disorder) Current Visit: No Status: Chronic (12) Substance induced mood disorder Current Visit: No Status: Chronic (13) Depression (emotion) Current Visit: No Status: Suspected Qualifiers: Depression Type: major depressive disorder Major depression recurrence: single episode Active/Remission status: in partial remission Qualified Code( s): F32.4 - Major depressive disorder, single episode, in partial remission (14) Positive PPD Current Visit: No Status: Resolved Comment: Last CXR 05/13/18 - Neg Cleared for Admission S - Detox or Rehab [facility] Level of Care: Medically Managed Detox Regimen/Protocol: Librium Breathalyzer - Breathalyzer Breathalyzer: 0 Urine Drug Screen - Test Device Lot number: [id number] Expiration date: 06/18/20 - Control Is test valid?: Yes - Results Drug screen NEGATIVE: No Urine drug screen results: MARITA-Cocaine Inpatient Rehab Admission - Rehab Decision to Admit Inpatient rehab admission?: No
[2018-10-02] MEDS ORDERED: ONDANSETRON *ODT* 4 MG TABLET SL PRN (14:10)
[2018-10-02] MEDS ORDERED: chlordiazePOXIDE HCL 25 MG CAPSULE PO PRN (14:10)
[2018-10-02] MEDS ORDERED: MAG HYDROX/AL HYDROX/SIMETH 30 ML UNIT-DOSE CUP PO PRN (14:10)
[2018-10-02] MEDS ORDERED: MELATONIN 5 MG TABLETS PO PRN (14:10)
[2018-10-02] MEDS ORDERED: MENTHOL/PHENOL 1 EACH UD MM PRN (14:10)
[2018-10-02] MEDS ORDERED: DICYCLOMINE HCL 10 MG CAPSULE PO PRN (14:10)
[2018-10-02] MEDS ORDERED: IBUPROFEN 400 MG TABLET (FP) PO PRN (14:10)
[2018-10-02] MEDS ORDERED: ACETAMINOPHEN 325 MG TABLET (FP) PO PRN (14:10)
[2018-10-02] MEDS ORDERED: NICOTINE POLACRILEX 4 MG GUM BUC PRN (14:10)
[2018-10-02] MEDS ORDERED: BACLOFEN 10 MG TABLET (FP) PO PRN (14:10)
[2018-10-02] MEDS ORDERED: hydrOXYzine PAMOATE 25 MG CAPSULE (FP) PO PRN (14:10)
[2018-10-02] MEDS ORDERED: MAGNESIUM CITRATE 300 ML BOTTLE PO PRN (14:10)
[2018-10-02] MEDS ORDERED: MAGNESIUM HYDROX 2400MG/30ML ORAL SUSPENSION 30 ML CUP PO PRN (14:10)
[2018-10-02] MEDS ORDERED: chlordiazePOXIDE HCL 25 MG CAPSULE PO ONE (15:15)
--- NOTE | 2018-10-02 16:44 | CONSULT ---
[facility] Psychiatric Consult - Data Date of interview: 10/02/18 Admission source: [facility] Identifying data: Readmission to [facility] for this 53 y/o male self- referred for detoxification (alcohol, cocaine). Interviewed on . Patient is single without children, domiciled, unemployed and supported on Public Assistance. Substance Abuse History: Discussed in this session. [facility] report confirmed by the patient. Details : Smoking history: Current every day smoker. Have you smoked in the past 12 months: Yes. Aproximately how many cigarettes per day: 20. Cigars Per Day: 0. Hx Chewing Tobacco Use: No. Initiated information on smoking cessation: Yes. 'Breaking Loose' booklet given: 10/02/18. - Substance & Tx. History. Hx Alcohol Use: Yes. Hx Substance Use: Yes. Substance Use Type : None, Alcohol, Cocaine. Hx Substance Use Treatment: Yes ([facility] month ago ). - Substances abused. Alcohol. Substance route: Oral. Frequency: 3-6 times per week. Amount used: it varies - liquor 1 pint every other day/BEER 1- 2 X 6PKS ON ALT. DAY. Age of first use: 19. Date of last use: 10/02/18. Crack. Substance route: Smoking. Frequency: 3-6 times per week. Amount used: $100. Age of first use: 19. Date of last use: 10/01/18. Cocaine. Substance route: Inhalation. Frequency: 3-6 times per week. Amount used: over 200 dollars. Age of first use: 19. Date of last use: 08/24/18 Medical History: History of appendectomy (1999), distant treatment for syphilis and hepatitis C (according to [facility] data). Psychiatric History: Patient denies history of psychiatric hospitalizations. Mr Reyes sees a psychiatrist at [facility] clinic in the [place]. Patient endorses the diagnoses of MDD, Anxiety Disorder and PTSD. Prescribed sertraline , seroquel and klonopin (not taken for days). Patient has decided NOT to resume these drugs in current hospital course. No reported history of suicide attempts. Physical/Sexual Abuse/Trauma History: Patient denies. Additional Comment: Urine drug screen results: MARITA-Cocaine. Noted. Mental Status Exam - Mental Status Exam Alert and Oriented to: Time, Place, Person Cognitive Function: Good Patient Appearance: Well Groomed Mood: Hopeful Affect: Appropriate, Normal Range Patient Behavior: Fatigued, Appropriate, Cooperative Speech Pattern: Clear Voice Loudness: Normal Thought Process: Goal Oriented Thought Disorder: Not Present Hallucinations: Denies Suicidal Ideation: Denies Homicidal Ideation: Denies Insight/Judgement: Poor Sleep: Well (as per self-report) Appetite: Good Muscle strength/Tone: Normal Gait/Station: Normal Psychiatric Findings - Problem List ([place] 1, 2,3) (1) Alcohol dependence with uncomplicated withdrawal Current Visit: Yes Status: Acute (2) Cocaine dependence Current Visit: Yes Status: Chronic Qualifiers: Substance use status: uncomplicated Qualified Code(s): F14.20 - Cocaine dependence, uncomplicated (3) Nicotine dependence Current Visit: Yes Status: Chronic Qualifiers: Nicotine product type: cigarettes Substance use status: uncomplicated Qualified Code(s): F17.210 - Nicotine dependence, cigarettes, uncomplicated (4) History of posttraumatic stress disorder (PTSD) Current Visit: Yes Status: Chronic (5) History of depression Current Visit: Yes Status: Chronic (6) Non-compliance Current Visit: Yes Status: Chronic - Initial Treatment Plan Initial Treatment Plan: Psychoeducation. Sleep hygiene. Support. Detoxification. Patient declines to nresume sertraline and seroquel. AA meetings. Relapse prevention (MAT) discussed in this session (patient expresses no interest). Observation.
[2018-10-02] MEDS: chlordiazePOXIDE HCL 25 MG CAPSULE PO SCH ×2 (17:42→22:15)
[2018-10-02 17:57] LABS: HEMATOCRIT 44.9 % (35.4-49); HEMOGLOBIN 14.6 GM/dL (11.7-16.9); MCH 29.2 pg (25.7-33.7); MCHC 32.4 g/dl (32.0-35.9); MEAN CELL VOLUME 90.2 fl (80-96); PLATELET COUNT 247 K/MM3 (134-434); RBC 4.98 M/mm3 (4.00-5.60); RDW 13.8 % (11.9-15.9)
[2018-10-02 18:15] LABS: ALBUMIN 3.9 g/dl (3.4-5.0); BILIRUBIN,TOTAL 0.7 mg/dL (0.2-1); CALCIUM 9.9 mg/dL (8.5-10.1); POTASSIUM 4.1 mmol/L (3.5-5.1)
[2018-10-02] MEDS: THIAMINE HCL 100 MG TABLET (FP) PO SCH (22:14)
[2018-10-03] MEDS: chlordiazePOXIDE HCL 25 MG CAPSULE PO SCH ×4 (06:11→22:28)
[2018-10-03] MEDS: PRENATAL VITAMINS W/ FOLIC ACID TABLET (FP) PO SCH (11:08)
[2018-10-03] MEDS: NICOTINE 21 MG/24 HOURS TOPICAL PATCH TD SCH (11:08)
--- NOTE | 2018-10-03 11:57 | PN ---
S CIWA - CIWA Score Nausea/Vomitin-No Nausea/No Vomiting Muscle Tremors: 3 Anxiety: 3 Agitation: 3 Paroxysmal Sweats: No Perspiration Orientation: 0-Oriented Tacttile Disturbances: 0-None Auditory Disturbances: 0-None Visual Disturbances: 0-None Headache: 0-None Present CIWA-Ar Total Score: 9 BHS Progress Note (SOAP) Subjective: REPORTS DETOX PROCEEDING WELL. OOB AMBULATING WITH STEADY GAIT. Objective: 10/03/18 11:56 Vital Signs 10/03/18 10/03/18 06:03 09:12 Temperature 97.6 F 98.2 F Pulse Rate 57 L 59 L Respiratory 18 18 Rate Blood Pressure 101/62 106/60 Laboratory Tests 10/02/18 10/02/18 10/02/18 14:05 14:05 14:05 WBC 6.0 RBC 4.98 Hgb 14.6 Hct 44.9 MCV 90.2 MCH 29.2 MCHC 32.4 RDW 13.8 Plt Count 247 MPV 10.0 Sodium 140 Potassium 4.1 Chloride 104 Carbon Dioxide 32 Anion Gap 4 L BUN 13 Creatinine 1.0 Est GFR (CKD-EPI)AfAm 99.15 Est GFR (CKD-EPI)NonAf 85.55 Random Glucose 56 L Calcium 9.9 Total Bilirubin 0.7 AST 12 L ALT 16 Alkaline Phosphatase 66 Total Protein 7.0 Albumin 3.9 RPR Titer Nonreactive HIV 1&2 Antibody Screen HIV P24 Antigen 10/02/18 14:05 WBC RBC Hgb Hct MCV MCH MCHC RDW Plt Count MPV Sodium Potassium Chloride Carbon Dioxide Anion Gap BUN Creatinine Est GFR (CKD-EPI)AfAm Est GFR (CKD-EPI)NonAf Random Glucose Calcium Total Bilirubin AST ALT Alkaline Phosphatase Total Protein Albumin RPR Titer HIV 1&2 Antibody Screen Negative HIV P24 Antigen Negative Assessment: 10/03/18 11:56 SLIGHT WITHDRAWAL SX Plan: CONTINUE DTEOX INCREASE PO FLUIDS
[2018-10-03] MEDS: THIAMINE HCL 100 MG TABLET (FP) PO SCH (22:28)
[2018-10-04] MEDS: chlordiazePOXIDE HCL 25 MG CAPSULE PO SCH ×2 (06:26→10:10)
[2018-10-04] MEDS: ACETAMINOPHEN 325 MG TABLET (FP) PO PRN (08:48)
[2018-10-04] MEDS: NICOTINE 21 MG/24 HOURS TOPICAL PATCH TD SCH (10:09)
[2018-10-04] MEDS: PRENATAL VITAMINS W/ FOLIC ACID TABLET (FP) PO SCH (10:10)
--- NOTE | 2018-10-04 12:07 | PN ---
S CIWA - CIWA Score Nausea/Vomitin-Mild Nausea/No Vomiting Muscle Tremors: 2 Anxiety: 2 Agitation: 2 Paroxysmal Sweats: No Perspiration Orientation: 0-Oriented Tacttile Disturbances: 0-None Auditory Disturbances: 0-None Visual Disturbances: 0-None Headache: 0-None Present CIWA-Ar Total Score: 7 BHS Progress Note (SOAP) Subjective: feeling good today social with peers in day room Objective: 10/04/18 12:06 Vital Signs Temperature 98.5 F 10/04/18 09:08 Pulse Rate 62 10/04/18 09:08 Respiratory Rate 18 10/04/18 09:08 Blood Pressure 101/65 10/04/18 09:08 O2 Sat by Pulse Oximetry (%) Laboratory Last Values WBC 6.0 K/mm3 (4.0-10.0) 10/02/18 14:05 RBC 4.98 M/mm3 (4.00-5.60) 10/02/18 14:05 Hgb 14.6 GM/dL (11.7-16.9) 10/02/18 14:05 Hct 44.9 % (35.4-49) 10/02/18 14:05 MCV 90.2 fl (80-96) 10/02/18 14:05 MCH 29.2 pg (25.7-33.7) 10/02/18 14:05 MCHC 32.4 g/dl (32.0-35.9) 10/02/18 14:05 RDW 13.8 % (11.9-15.9) 10/02/18 14:05 Plt Count 247 K/MM3 (134-434) 10/02/18 14:05 MPV 10.0 fl (7.5-11.1) 10/02/18 14:05 Sodium 140 mmol/L (136-145) 10/02/18 14:05 Potassium 4.1 mmol/L (3.5-5.1) 10/02/18 14:05 Chloride 104 mmol/L (98-107) 10/02/18 14:05 Carbon Dioxide 32 mmol/L (21-32) 10/02/18 14:05 Anion Gap 4 MMOL/L (8-16) L 10/02/18 14:05 BUN 13 mg/dL (7-18) 10/02/18 14:05 Creatinine 1.0 mg/dL (0.55-1.3) 10/02/18 14:05 Est GFR (CKD-EPI)AfAm 99.15 10/02/18 14:05 Est GFR (CKD-EPI)NonAf 85.55 10/02/18 14:05 Random Glucose 56 mg/dL (74-106) L 10/02/18 14:05 Calcium 9.9 mg/dL (8.5-10.1) 10/02/18 14:05 Total Bilirubin 0.7 mg/dL (0.2-1) 10/02/18 14:05 AST 12 U/L (15-37) L 10/02/18 14:05 ALT 16 U/L (13-61) 10/02/18 14:05 Alkaline Phosphatase 66 U/L (45-117) 10/02/18 14:05 Total Protein 7.0 g/dl (6.4-8.2) 10/02/18 14:05 Albumin 3.9 g/dl (3.4-5.0) 10/02/18 14:05 RPR Titer Nonreactive (NONREACTIVE) 10/02/18 14:05 HIV 1&2 Antibody Screen Negative 10/02/18 14:05 HIV P24 Antigen Negative 10/02/18 14:05 lab noted Assessment: 10/04/18 12:06 alcohol withdrawal sx Plan: continue detox
[2018-10-04] MEDS ORDERED: chlordiazePOXIDE HCL 10 MG CAPSULE PO PRN (17:00)
[2018-10-04] MEDS: chlordiazePOXIDE HCL 10 MG CAPSULE PO SCH ×2 (17:45→22:26)
[2018-10-04] MEDS: THIAMINE HCL 100 MG TABLET (FP) PO SCH (22:26)
[2018-10-05] MEDS: chlordiazePOXIDE HCL 10 MG CAPSULE PO SCH ×3 (06:12→17:46)
[2018-10-05] MEDS: NICOTINE 21 MG/24 HOURS TOPICAL PATCH TD SCH (10:07)
[2018-10-05] MEDS: ACETAMINOPHEN 325 MG TABLET (FP) PO PRN ×2 (10:08→17:48)
[2018-10-05] MEDS: PRENATAL VITAMINS W/ FOLIC ACID TABLET (FP) PO SCH (10:08)
--- NOTE | 2018-10-05 12:42 | PN ---
[facility] CIWA - CIWA Score Nausea/Vomitin-Mild Nausea/No Vomiting Muscle Tremors: 1-None Visible, but [place] Anxiety: 1-Mildly Anxious Agitation: 1-Slight > Activity Paroxysmal Sweats: No Perspiration Orientation: 0-Oriented Tacttile Disturbances: 0-None Auditory Disturbances: 0-None Visual Disturbances: 0-None Headache: 0-None Present CIWA-Ar Total Score: 4 BHS Progress Note (SOAP) Subjective: feeling better today discuss aftercare with staff wants to remain sober Objective: 10/05/18 12:41 Vital Signs Temperature 97.7 F 10/05/18 09:22 Pulse Rate 74 10/05/18 09:22 Respiratory Rate 18 10/05/18 09:22 Blood Pressure 98/59 L 10/05/18 09:22 O2 Sat by Pulse Oximetry (%) Laboratory Last Values WBC 6.0 K/mm3 (4.0-10.0) 10/02/18 14:05 RBC 4.98 M/mm3 (4.00-5.60) 10/02/18 14:05 Hgb 14.6 GM/dL (11.7-16.9) 10/02/18 14:05 Hct 44.9 % (35.4-49) 10/02/18 14:05 MCV 90.2 fl (80-96) 10/02/18 14:05 MCH 29.2 pg (25.7-33.7) 10/02/18 14:05 MCHC 32.4 g/dl (32.0-35.9) 10/02/18 14:05 RDW 13.8 % (11.9-15.9) 10/02/18 14:05 Plt Count 247 K/MM3 (134-434) 10/02/18 14:05 MPV 10.0 fl (7.5-11.1) 10/02/18 14:05 Sodium 140 mmol/L (136-145) 10/02/18 14:05 Potassium 4.1 mmol/L (3.5-5.1) 10/02/18 14:05 Chloride 104 mmol/L (98-107) 10/02/18 14:05 Carbon Dioxide 32 mmol/L (21-32) 10/02/18 14:05 Anion Gap 4 MMOL/L (8-16) L 10/02/18 14:05 BUN 13 mg/dL (7-18) 10/02/18 14:05 Creatinine 1.0 mg/dL (0.55-1.3) 10/02/18 14:05 Est GFR (CKD-EPI)AfAm 99.15 10/02/18 14:05 Est GFR (CKD-EPI)NonAf 85.55 10/02/18 14:05 Random Glucose 56 mg/dL (74-106) L 10/02/18 14:05 Calcium 9.9 mg/dL (8.5-10.1) 10/02/18 14:05 Total Bilirubin 0.7 mg/dL (0.2-1) 10/02/18 14:05 AST 12 U/L (15-37) L 10/02/18 14:05 ALT 16 U/L (13-61) 10/02/18 14:05 Alkaline Phosphatase 66 U/L (45-117) 10/02/18 14:05 Total Protein 7.0 g/dl (6.4-8.2) 10/02/18 14:05 Albumin 3.9 g/dl (3.4-5.0) 10/02/18 14:05 RPR Titer Nonreactive (NONREACTIVE) 10/02/18 14:05 HIV 1&2 Antibody Screen Negative 10/02/18 14:05 HIV P24 Antigen Negative 10/02/18 14:05 lab noted Assessment: 10/05/18 12:41 mild alcohol withdrawal sx Plan: continue detox
[2018-10-05] MEDS: THIAMINE HCL 100 MG TABLET (FP) PO SCH (22:15)
[2018-10-06] MEDS: chlordiazePOXIDE HCL 10 MG CAPSULE PO SCH (06:26)
[2018-10-06 06:27] VITALS: BP 93/61; PULSE 50; TEMP 97.3
--- NOTE | 2018-10-06 15:25 | DS ---
[facility] Detox Discharge Summary Admission Date: 10/02/18 Discharge Date: 10/06/18 - History Present History: Alcohol Dependence Additional Comments: 53 years old male admitted on 10/02/18 for alcohol withdrawal stabilization completed detox regimen aftercare 12 step self help support group Pertinent Past History: bring in medication list and lab report to afollow up appointment - Physical Exam Results Vital Signs: Vital Signs Temperature 97.3 F L 10/06/18 06:27 Pulse Rate 50 L 10/06/18 06:27 Respiratory Rate 18 10/06/18 06:27 Blood Pressure 93/61 10/06/18 06:27 O2 Sat by Pulse Oximetry (%) Pertinent Admission Physical Exam Findings: alcohol withdrawal sx Laboratory Last Values WBC 6.0 K/mm3 (4.0-10.0) 10/02/18 14:05 RBC 4.98 M/mm3 (4.00-5.60) 10/02/18 14:05 Hgb 14.6 GM/dL (11.7-16.9) 10/02/18 14:05 Hct 44.9 % (35.4-49) 10/02/18 14:05 MCV 90.2 fl (80-96) 10/02/18 14:05 MCH 29.2 pg (25.7-33.7) 10/02/18 14:05 MCHC 32.4 g/dl (32.0-35.9) 10/02/18 14:05 RDW 13.8 % (11.9-15.9) 10/02/18 14:05 Plt Count 247 K/MM3 (134-434) 10/02/18 14:05 MPV 10.0 fl (7.5-11.1) 10/02/18 14:05 Sodium 140 mmol/L (136-145) 10/02/18 14:05 Potassium 4.1 mmol/L (3.5-5.1) 10/02/18 14:05 Chloride 104 mmol/L (98-107) 10/02/18 14:05 Carbon Dioxide 32 mmol/L (21-32) 10/02/18 14:05 Anion Gap 4 MMOL/L (8-16) L 10/02/18 14:05 BUN 13 mg/dL (7-18) 10/02/18 14:05 Creatinine 1.0 mg/dL (0.55-1.3) 10/02/18 14:05 Est GFR (CKD-EPI)AfAm 99.15 10/02/18 14:05 Est GFR (CKD-EPI)NonAf 85.55 10/02/18 14:05 Random Glucose 56 mg/dL (74-106) L 10/02/18 14:05 Calcium 9.9 mg/dL (8.5-10.1) 10/02/18 14:05 Total Bilirubin 0.7 mg/dL (0.2-1) 10/02/18 14:05 AST 12 U/L (15-37) L 10/02/18 14:05 ALT 16 U/L (13-61) 10/02/18 14:05 Alkaline Phosphatase 66 U/L (45-117) 10/02/18 14:05 Total Protein 7.0 g/dl (6.4-8.2) 10/02/18 14:05 Albumin 3.9 g/dl (3.4-5.0) 10/02/18 14:05 RPR Titer Nonreactive (NONREACTIVE) 10/02/18 14:05 HIV 1&2 Antibody Screen Negative 10/02/18 14:05 HIV P24 Antigen Negative 10/02/18 14:05 lab noted - Treatment Hospital Course: Detox Protocol Followed, Detoxed Safely, Responded well, Discharged Condition Good, Rehab Referral Accepted Patient has Accepted a Rehab Referral to: 12 step self help support group - Medication Discharge Medications: Ambulatory Orders Quetiapine Fumarate [Seroquel -] 400 mg PO HS 08/03/18 Sertraline HCl [Zoloft] 100 mg PO DAILY 08/03/18 - Diagnosis (1) Alcohol dependence with uncomplicated withdrawal Status: Acute (2) Nicotine dependence Status: Acute Qualifiers: Nicotine product type: cigarettes Substance use status: in withdrawal Qualified Code(s): F17.213 - Nicotine dependence, cigarettes, with withdrawal (3) Substance induced mood disorder Status: Suspected (4) Positive PPD Status: Resolved - AMA Did Patient Leave Against Medical Advice: No
== END 2018-10-06 11:46 | disposition home or self-care (01) | DRG 774 ==
LOC: YASAS 11:38 → Y3N 15:00
PROVIDERS: ADMIT Surgery; ATTEND Surgery
PROC: HZ2ZZZZ Detoxification Services for Substance Abuse Treatment (ICD-10-PCS; principal; 2018-10-02)
DX: F10.230 Alcohol dependence with withdrawal, uncomplicated (principal); F14.20 Cocaine dependence, uncomplicated; F17.213 Nicotine dependence, cigarettes, with withdrawal; F41.9 Anxiety disorder, unspecified; F19.24 Other psychoactive substance dependence with psychoactive substance-induced mood disorder; F19.282 Other psychoactive substance dependence with psychoactive substance-induced sleep disorder; F43.10 Post-traumatic stress disorder, unspecified; F32.9 Major depressive disorder, single episode, unspecified; I95.9 Hypotension, unspecified; R76.11 Nonspecific reaction to tuberculin skin test without active tuberculosis; R63.8 Other symptoms and signs concerning food and fluid intake; Z91.19 Patient's noncompliance with other medical treatment and regimen; Z87.438 Personal history of other diseases of male genital organs
CPT/HCPCS: 36415; 80053; 85027; 86593; 87389; J0475

== ENCOUNTER 2018-12-05 09:10 | Inpatient (IN) | payer OTHER ==
[2018-12-05 10:33] VITALS: BMI 20.7
--- NOTE | 2018-12-05 11:09 | HP ---
"CIWA Score Nausea/Vomitin-Mild Nausea/No Vomiting Muscle Tremors: 3 Anxiety: 3 Agitation: 3 Paroxysmal Sweats: No Perspiration Orientation: 1-Uncertain about Date Tacttile Disturbances: 0-None Auditory Disturbances: 1-Very Mild Visual Disturbances: 1-Very Mild Sensitivity Headache: 2-Mild CIWA-Ar Total Score: 15 - Admission Criteria OASAS Guidelines: Admission for Medically Managed Detox: Requires at least one of the followin. CIWA greater than 12 2. Seizures within the past 24 hours 3. Delirium tremens within the past 24 hours 4. Hallucinations within the past 24 hours 5. Acute intervention needed for co occurring medical disorder 6. Acute intervention needed for co occurring psychiatric disorder 7. Severe withdrawal that cannot be handled at a lower level of care (continued vomiting, continued diarrhea, abnormal vital signs) requiring intravenous medication and/or fluids 8. Patient presents the following: CIWA greater than 12 Admission Criteria Met: Admission criteria met Admission ROS BHS - HPI Chief Complaint: I get the craving, I can't stop, I just have to have a drink - but I can't drink my troubles away Allergies/Adverse Reactions: Allergies Allergy/AdvReac Type Severity Reaction Status Date / Time No Known Allergies Allergy Verified 12/05/18 10:25 History of Present Illness: 53 yo gentleman here for detox from alcohol - also using cocaine. Patient is homeless (lost apartment one year ago). No seizures but does have black outs. States has not been able to work or find housing due to alcohol use. Urine tox negative for bzo - patient states he does not take his Rx klonopin all the time - does not abuse it, took it last a week ago. [facility]: Search Terms: toyin parekh, 1965 Search Date: 12/05/2018 11:06:56 AM The Drug Utilization Report below displays all of the controlled substance prescriptions, if any, that your patient has filled in the last twelve months. The information displayed on this report is compiled from pharmacy submissions to the Department, and accurately reflects the information as submitted by the pharmacies. This report was requested by: Ashley Tyler | Reference #: [id number] Others' Prescriptions Patient Name: Toyin Parekh Date: 1965 Address: [address] [place] [address] Sex: Male Rx Written Rx Dispensed Drug Quantity Days Supply Prescriber Name 11/23/2018 11/23/2018 clonazepam 2 mg tablet 28 28 Luis Leach A ([employer]) 10/27/2018 10/27/2018 clonazepam 2 mg tablet 28 28 Luis Leach A ([employer]) 09/29/2018 09/29/2018 clonazepam 2 mg tablet 28 28 Luis Leach A ([employer]) 08/28/2018 08/28/2018 clonazepam 2 mg tablet 28 28 Luis Leach A ([employer]) 07/31/2018 07/31/2018 clonazepam 2 mg tablet 28 28 Luis Leach A ([employer]) 07/03/2018 07/03/2018 clonazepam 2 mg tablet 28 28 Luis Leach A ([employer]) 06/05/2018 06/05/2018 clonazepam 2 mg tablet 28 28 Luis Leach A ([employer]) 05/08/2018 05/08/2018 clonazepam 2 mg tablet 28 28 Luis Leach A ([employer]) 04/10/2018 04/10/2018 clonazepam 2 mg tablet 28 28 Alek Nicholson MD 03/12/2018 03/12/2018 clonazepam 2 mg tablet 28 28 Luis Leach A ([employer]) 02/12/2018 02/12/2018 clonazepam 2 mg tablet 28 28 Luis Leach A ([employer]) 01/15/2018 01/15/2018 clonazepam 2 mg tablet 28 28 Seb Rosas NP 12/18/2017 12/18/2017 clonazepam 2 mg tablet 28 28 Luis Leach A ([employer]) Exam Limitations: No Limitations - Ebola screening Have you traveled outside of the country in the last 21 days: No (N) Have you had contact with anyone from an Ebola affected area: No Do you have a fever: No - Review of Systems Constitutional: Loss of Appetite, Malaise, Changes in sleep, Weakness, Unintentional Wgt. Loss EENT: reports: Blurred Vision, Other (floaters) Respiratory: reports: No Symptoms reported Cardiac: reports: No Symptoms Reported GI: reports: Nausea, Poor Appetite, Abdominal cramping : reports: Frequency Musculoskeletal: reports: Back Pain, Muscle Pain Integumentary: reports: Dryness Endocrine: reports: No Symptoms Reported Hematology: reports: No Symptoms Reported Psychiatric: reports: Judgement Intact, Mood/Affect Appropiate, Anxious Other Systems: Reviewed and Negative Patient History - Patient Medical History Hx Anemia: No (sickle cell) Hx Asthma: No Hx Chronic Obstructive Pulmonary Disease (COPD): No Hx Cancer: No Hx Cardiac Disorders: No Hx Congestive Heart Failure: No Hx Hypertension: No Hx Hypercholesterolemia: No Hx Pacemaker: No HX Cerebrovascular Accident: No Hx Seizures: No Hx Dementia: No Hx Diabetes: No (hx prediabetes) Hx Gastrointestinal Disorders: No Hx Liver Disease: No Hx Genitourinary Disorders: No Hx Sexually Transmitted Disorders: Yes (hx syphilis - treated with injection) Hx Renal Disease (ESRD): No Hx Thyroid Disease: No Hx Human Immunodeficiency Virus (HIV): No Hx Hepatitis C: Yes (just diagnosed - not treated) Hx Depression: Yes (on meds, PTSD, sees psych and therapist) Hx Suicide Attempt: Yes (many years ago) Hx Bipolar Disorder: No Hx Schizophrenia: No - Patient Surgical History Past Surgical History: Yes Hx Neurologic Surgery: No Hx Cataract Extraction: No Hx Cardiac Surgery: No Hx Lung Surgery: No Hx Breast Surgery: No Hx Breast Biopsy: No Hx Abdominal Surgery: No Hx Appendectomy: Yes (IN 1999) Hx Cholecystectomy: No Hx Genitourinary Surgery: No Hx Section: No Hx Orthopedic Surgery: No Hx Hysterectomy: No Anesthesia Reaction: No - PPD History Previous Implant?: Yes Documented Results: Positive w/o proof Implanted On Prior R Admission?: No Results: CXR(-) 05/13/18 PPD to be Administered?: No - Reproductive History Patient is a Female of Child Bearing Age (11 -55 yrs old): No - Smoking Cessation Smoking history: Current every day smoker Have you smoked in the past 12 months: Yes Aproximately how many cigarettes per day: 20 Cigars Per Day: 0 Hx Chewing Tobacco Use: No Initiated information on smoking cessation: Yes 'Breaking Loose' booklet given: 12/05/18 (give on floor) - Substance & Tx. History Hx Alcohol Use: Yes Hx Substance Use: Yes Substance Use Type: Alcohol, Cocaine Hx Substance Use Treatment: Yes (detox, rehab) - Substances abused Alcohol Substance route: Oral Frequency: 3-6 times per week Amount used: it varies - liquor 1 pint every other day/BEER 1-2 X 6PKS ON ALT. DAY Age of first use: Date of last use: 12/04/18 Crack Substance route: Smoking Frequency: 3-6 times per week Amount used: $100 Age of first use: Date of last use: 12/04/18 Cocaine Substance route: Inhalation Frequency: 3-6 times per week Amount used: over 200 dollars Age of first use: Date of last use: 08/24/18 Family Disease History - Family Disease History Family Disease History: Diabetes: Mother (), Brother (four - living hx etoh), CA: Father (throat - etoh), Other: Mother Admission Physical Exam BHS - Vital Signs Vital Signs: Vital Signs - 24 hr 12/05/18 10:26 Temperature 97.0 F L Pulse Rate 67 Respiratory 18 Rate Blood Pressure 105/60 - Physical General Appearance: Yes: Nourished, Moderate Distress, Thin, Tremorous, Anxious HEENTM: Yes: EOMI, Hearing grossly Normal, Normocephalic, Normal Voice, Pharynx Normal Respiratory: Yes: Normal Breath Sounds, No Respiratory Distress Neck: Yes: No masses,lesions,Nodules, Supple Breast: Yes: Breast Exam Deferred Cardiology: Yes: Regular Rhythm, Regular Rate Abdominal: Yes: Flat, Soft Genitourinary: Yes: Frequency, Nocturia Back: Yes: Normal Inspection Musculoskeletal: Yes: full range of Motion, Gait Steady, Back pain, Muscle Pain Extremities: Yes: Normal Inspection, Normal Range of Motion, Tremors 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: Yes: Fully Oriented, Alert, Normal Mood/Affect, Normal Response Integumentary: Yes: Normal Color, Dry, Warm Lymphatic: Yes: Within Normal Limits - Diagnostic (1) Alcohol dependence with uncomplicated withdrawal Current Visit: Yes Status: Acute (2) Cocaine dependence Current Visit: Yes Status: Chronic Qualifiers: Substance use status: uncomplicated Qualified Code(s): F14.20 - Cocaine dependence, uncomplicated (3) Hepatitis C Current Visit: Yes Status: Acute Qualifiers: Viral hepatitis chronicity: chronic Qualified Code(s): B18.2 - Chronic viral hepatitis C Comment: newly diagnosed - not treated (4) Sickle cell disease Current Visit: Yes Status: Chronic Qualifiers: Sickle-cell associated disorders: with unspecified crisis Qualified Code(s) : D57.00 - Hb-SS disease with crisis, unspecified; D57.0 - Hb-SS disease with crisis (5) Nicotine dependence Current Visit: Yes Status: Acute Qualifiers: Nicotine product type: cigarettes Substance use status: in withdrawal Qualified Code(s): F17.213 - Nicotine dependence, cigarettes, with withdrawal (6) At risk for dehydration due to poor fluid intake Current Visit: Yes Status: Chronic (7) Positive PPD Current Visit: Yes Status: Resolved Comment: Last CXR 05/13/18 - Neg (8) History of syphilis Current Visit: Yes Status: Resolved Comment: treated in past Cleared for Admission S - Detox or Rehab [facility] Level of Care: Medically Managed Detox Regimen/Protocol: Librium Breathalyzer - Breathalyzer Breathalyzer: 0 Urine Drug Screen - Test Device Lot number: [id number] Expiration date: 09/15/20 - Control Is test valid?: Yes - Results Drug screen NEGATIVE: No Urine drug screen results: MARITA-Cocaine Inpatient Rehab Admission - Rehab Decision to Admit Inpatient rehab admission?: No"
[2018-12-05] MEDS ORDERED: MELATONIN 5 MG TABLETS PO PRN (11:43)
[2018-12-05] MEDS ORDERED: hydrOXYzine HCL 25 MG TABLET (FP) PO PRN (11:43)
[2018-12-05] MEDS ORDERED: METHOCARBAMOL 500 MG TABLET PO PRN (11:43)
[2018-12-05] MEDS ORDERED: MENTHOL/PHENOL 1 EACH UD MM PRN (11:43)
[2018-12-05] MEDS ORDERED: MAGNESIUM HYDROX 2400MG/30ML ORAL SUSPENSION 30 ML CUP PO PRN (11:43)
[2018-12-05] MEDS ORDERED: chlordiazePOXIDE HCL 25 MG CAPSULE PO PRN (11:43)
[2018-12-05] MEDS ORDERED: MAGNESIUM CITRATE 300 ML BOTTLE PO PRN (11:43)
[2018-12-05] MEDS ORDERED: MAG HYDROX/AL HYDROX/SIMETH 30 ML UNIT-DOSE CUP PO PRN (11:43)
[2018-12-05] MEDS ORDERED: IBUPROFEN 400 MG TABLET (FP) PO PRN (11:43)
[2018-12-05] MEDS ORDERED: BISMUTH SUBSALICYLATE 524 MG/30 ML UD PO PRN (11:43)
[2018-12-05] MEDS ORDERED: NICOTINE POLACRILEX 4 MG GUM BUC PRN (11:43)
[2018-12-05] MEDS ORDERED: chlordiazePOXIDE HCL 25 MG CAPSULE PO ONE (12:30)
[2018-12-05] MEDS: chlordiazePOXIDE HCL 25 MG CAPSULE PO SCH ×2 (18:18→22:49)
[2018-12-05] MEDS: THIAMINE HCL 100 MG TABLET (FP) PO SCH (22:49)
[2018-12-06] MEDS: chlordiazePOXIDE HCL 25 MG CAPSULE PO SCH ×4 (07:02→22:16)
[2018-12-06] MEDS: PRENATAL VITAMINS W/ FOLIC ACID TABLET (FP) PO SCH (10:04)
--- NOTE | 2018-12-06 10:07 | CONSULT ---
[facility] Psychiatric Consult - Data Date of interview: 12/06/18 Admission source: Self-referred Identifying data: Mr Reyes is a 53 years old single male, unemployed receving public assistance, living in a drop-in center seeking detox treatment for alcohol and cocaine Substance Abuse History: Reports history of alcohol and crack cocaine use. Refer to addiction counselor's summary for further information Medical History: Significant for hepatitis C, sicke cell anemia, PPD+, and history of treatment for syphilis and surgery for appendectomy in 1999. Smokes cigarettes 1 ppd Psychiatric History: Reports that his first psychiatric contact was in 2013 when he saw a psychiatrist at [facility] in the [place]. Reports that he was diagnosed with MDD, Anxiety and PTSD and started on medications. Reports that he has been receving outpatient treatment at the same clinic since and he is currently prescribed Zoloft 100 mg/day, Seroquel 400 mg/hs and Klonopin 2 mg/ day. 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 Denies previous psychiatric hospitalization. However, reports 2 previous suicidal attempts via overdose and most recently with a gun years ago. Claims he did not seek medical attention for the latter but sought for the former denying that it was intentional. At present, reports feeling depressed, anxious and sleeping poorly Physical/Sexual Abuse/Trauma History: Denies history of emotional, physical or sexual abuse as well as DV relatiomship. No service Additional Comment: Denies legal Mental Status Exam - Mental Status Exam Alert and Oriented to: Time, Place, Person Cognitive Function: Fair Patient Appearance: Disheveled Mood: Depressed, Anxious Affect: Normal Range Patient Behavior: Cooperative Speech Pattern: Clear Voice Loudness: Normal Thought Process: Intact, Goal Oriented Hallucinations: Denies Suicidal Ideation: Denies Homicidal Ideation: Denies Insight/Judgement: Poor Sleep: Poorly Appetite: Poor Muscle strength/Tone: Normal Gait/Station: Normal Psychiatric Findings - Problem List ([place] 1, 2,3) (1) PTSD (post-traumatic stress disorder) Current Visit: Yes Status: Chronic (2) Depressive disorder Current Visit: No Status: Chronic Comment: By history. (3) MDD (major depressive disorder) Current Visit: Yes Status: Ruled-out (4) Alcohol dependence with uncomplicated withdrawal Current Visit: Yes Status: Acute (5) Cocaine dependence Current Visit: Yes Status: Acute Qualifiers: Substance use status: uncomplicated Qualified Code(s): F14.20 - Cocaine dependence, uncomplicated (6) Nicotine dependence Current Visit: Yes Status: Chronic Qualifiers: Nicotine product type: cigarettes Substance use status: in withdrawal Qualified Code(s): F17.213 - Nicotine dependence, cigarettes, with withdrawal (7) Hepatitis C Current Visit: Yes Status: Chronic Qualifiers: Viral hepatitis chronicity: chronic Qualified Code(s): B18.2 - Chronic viral hepatitis C Comment: newly diagnosed - not treated (8) Sickle cell disease Current Visit: Yes Status: Chronic Qualifiers: Sickle-cell associated disorders: with unspecified crisis Qualified Code(s) : D57.00 - Hb-SS disease with crisis, unspecified; D57.0 - Hb-SS disease with crisis (9) History of syphilis Current Visit: Yes Status: Resolved Comment: treated in past (10) Positive PPD Current Visit: Yes Status: Resolved Comment: Last CXR 05/13/18 - Neg (11) S/P appendectomy Current Visit: No Status: Resolved - Initial Treatment Plan Initial Treatment Plan: Continue inpatient detoxification as patient is not willing as usual to resume medication while admitted to this facility for detox
[2018-12-06 10:42] LABS: ALBUMIN 3.3 g/dl (3.4-5.0); BILIRUBIN,TOTAL 0.6 mg/dL (0.2-1); BLOOD UREA NITROGEN 15.5 mg/dL (7-18); CALCIUM 8.4 mg/dL (8.5-10.1); POTASSIUM 4.1 mmol/L (3.5-5.1); TOT PROT 6.1 g/dl (6.4-8.2)
[2018-12-06 10:51] LABS: HEMATOCRIT 43.1 % (35.4-49); HEMOGLOBIN 14.6 GM/dL (11.7-16.9); MCH 30.6 pg (25.7-33.7); MCHC 33.7 g/dl (32.0-35.9); MEAN CELL VOLUME 90.6 fl (80-96); MEAN PLT VOLUME 9.8 fl (7.5-11.1); PLATELET COUNT 223 K/MM3 (134-434); RBC 4.76 M/mm3 (4.00-5.60); RDW 13.9 % (11.9-15.9)
--- NOTE | 2018-12-06 11:22 | PN ---
S CIWA - CIWA Score Nausea/Vomitin-Mild Nausea/No Vomiting Muscle Tremors: 4-Moderate,w/Arms Extend Anxiety: 2 Agitation: 3 Paroxysmal Sweats: 1-Minimal Palms Moist Orientation: 0-Oriented Tacttile Disturbances: 1-Very Mild Itch/Numbness Auditory Disturbances: 0-None Visual Disturbances: 0-None Headache: 1-Very Mild CIWA-Ar Total Score: 13 BHS Progress Note (SOAP) Subjective: tremor no headaches sweat trouble sleep at night Objective: 12/07/18 14:11 Vital Signs Temperature 97.9 F 12/07/18 13:33 Pulse Rate 63 12/07/18 13:33 Respiratory Rate 18 12/07/18 13:33 Blood Pressure 96/58 L 12/07/18 13:33 O2 Sat by Pulse Oximetry (%) Laboratory Last Values WBC 6.0 K/mm3 (4.0-10.0) 12/06/18 07:50 RBC 4.76 M/mm3 (4.00-5.60) 12/06/18 07:50 Hgb 14.6 GM/dL (11.7-16.9) 12/06/18 07:50 Hct 43.1 % (35.4-49) 12/06/18 07:50 MCV 90.6 fl (80-96) 12/06/18 07:50 MCH 30.6 pg (25.7-33.7) 12/06/18 07:50 MCHC 33.7 g/dl (32.0-35.9) 12/06/18 07:50 RDW 13.9 % (11.9-15.9) 12/06/18 07:50 Plt Count 223 K/MM3 (134-434) 12/06/18 07:50 MPV 9.8 fl (7.5-11.1) 12/06/18 07:50 Sodium 145 mmol/L (136-145) 12/06/18 07:50 Potassium 4.1 mmol/L (3.5-5.1) 12/06/18 07:50 Chloride 111 mmol/L (98-107) H 12/06/18 07:50 Carbon Dioxide 30 mmol/L (21-32) 12/06/18 07:50 Anion Gap 4 MMOL/L (8-16) L 12/06/18 07:50 BUN 15.5 mg/dL (7-18) 12/06/18 07:50 Creatinine 1.0 mg/dL (0.55-1.3) 12/06/18 07:50 Est GFR (CKD-EPI)AfAm 99.15 12/06/18 07:50 Est GFR (CKD-EPI)NonAf 85.55 12/06/18 07:50 Random Glucose 83 mg/dL (74-106) 12/06/18 07:50 Calcium 8.4 mg/dL (8.5-10.1) L 12/06/18 07:50 Total Bilirubin 0.6 mg/dL (0.2-1) 12/06/18 07:50 AST 8 U/L (15-37) L 12/06/18 07:50 ALT 16 U/L (13-61) 12/06/18 07:50 Alkaline Phosphatase 56 U/L (45-117) 12/06/18 07:50 Total Protein 6.1 g/dl (6.4-8.2) L 12/06/18 07:50 Albumin 3.3 g/dl (3.4-5.0) L 12/06/18 07:50 RPR Titer Nonreactive (NONREACTIVE) 12/06/18 07:50 HIV 1&2 Antibody Screen Negative 12/06/18 07:50 HIV P24 Antigen Negative 12/06/18 07:50 lab noted Assessment: 12/07/18 14:11 alcohol withdrawal sx Plan: continue alcohol detox
--- NOTE | 2018-12-06 11:24 | PN ---
S CIWA - CIWA Score Nausea/Vomitin-Mild Nausea/No Vomiting Muscle Tremors: 3 Anxiety: 3 Agitation: 3 Paroxysmal Sweats: 1-Minimal Palms Moist Orientation: 1-Uncertain about Date Tacttile Disturbances: 1-Very Mild Itch/Numbness Auditory Disturbances: 0-None Visual Disturbances: 0-None Headache: 1-Very Mild CIWA-Ar Total Score: 14 BHS Progress Note (SOAP) Subjective: tired irritable encourage oral fluid Objective: 12/06/18 11:23 Vital Signs Temperature 99.3 F 12/06/18 09:11 Pulse Rate 58 L 12/06/18 09:11 Respiratory Rate 18 12/06/18 09:11 Blood Pressure 95/68 12/06/18 09:11 O2 Sat by Pulse Oximetry (%) Laboratory Last Values Sodium 145 mmol/L (136-145) 12/06/18 07:50 Potassium 4.1 mmol/L (3.5-5.1) 12/06/18 07:50 Chloride 111 mmol/L (98-107) H 12/06/18 07:50 Carbon Dioxide 30 mmol/L (21-32) 12/06/18 07:50 Anion Gap 4 MMOL/L (8-16) L 12/06/18 07:50 BUN 15.5 mg/dL (7-18) 12/06/18 07:50 Creatinine 1.0 mg/dL (0.55-1.3) 12/06/18 07:50 Est GFR (CKD-EPI)AfAm 99.15 12/06/18 07:50 Est GFR (CKD-EPI)NonAf 85.55 12/06/18 07:50 Random Glucose 83 mg/dL (74-106) 12/06/18 07:50 Calcium 8.4 mg/dL (8.5-10.1) L 12/06/18 07:50 Total Bilirubin 0.6 mg/dL (0.2-1) 12/06/18 07:50 AST 8 U/L (15-37) L 12/06/18 07:50 ALT 16 U/L (13-61) 12/06/18 07:50 Alkaline Phosphatase 56 U/L (45-117) 12/06/18 07:50 Total Protein 6.1 g/dl (6.4-8.2) L 12/06/18 07:50 Albumin 3.3 g/dl (3.4-5.0) L 12/06/18 07:50 lab noted Assessment: 12/06/18 11:24 alcohol withdrawal sx Plan: continue alcohol detox
[2018-12-06] MEDS: ACETAMINOPHEN 325 MG TABLET (FP) PO PRN ×2 (12:30→18:13)
[2018-12-06] MEDS: THIAMINE HCL 100 MG TABLET (FP) PO SCH (22:15)
[2018-12-07] MEDS: chlordiazePOXIDE HCL 25 MG CAPSULE PO SCH ×4 (07:25→22:23)
[2018-12-07] MEDS: PRENATAL VITAMINS W/ FOLIC ACID TABLET (FP) PO SCH (10:20)
[2018-12-07] MEDS: ACETAMINOPHEN 325 MG TABLET (FP) PO PRN (18:39)
[2018-12-07] MEDS: THIAMINE HCL 100 MG TABLET (FP) PO SCH (22:23)
[2018-12-08] MEDS ORDERED: chlordiazePOXIDE HCL 10 MG CAPSULE PO PRN
[2018-12-08] MEDS: chlordiazePOXIDE HCL 10 MG CAPSULE PO SCH ×4 (06:58→22:34)
[2018-12-08] MEDS: PRENATAL VITAMINS W/ FOLIC ACID TABLET (FP) PO SCH (10:34)
--- NOTE | 2018-12-08 14:10 | PN ---
S CIWA - CIWA Score Nausea/Vomitin-Mild Nausea/No Vomiting Muscle Tremors: 3 Anxiety: 2 Agitation: 3 Paroxysmal Sweats: 1-Minimal Palms Moist Orientation: 1-Uncertain about Date Tacttile Disturbances: 1-Very Mild Itch/Numbness Auditory Disturbances: 0-None Visual Disturbances: 0-None Headache: 0-None Present CIWA-Ar Total Score: 12 BHS Progress Note (SOAP) Subjective: tremor sweating anxiety Objective: 12/07/18 14:09 Laboratory Last Values WBC 6.0 K/mm3 (4.0-10.0) 12/06/18 07:50 RBC 4.76 M/mm3 (4.00-5.60) 12/06/18 07:50 Hgb 14.6 GM/dL (11.7-16.9) 12/06/18 07:50 Hct 43.1 % (35.4-49) 12/06/18 07:50 MCV 90.6 fl (80-96) 12/06/18 07:50 MCH 30.6 pg (25.7-33.7) 12/06/18 07:50 MCHC 33.7 g/dl (32.0-35.9) 12/06/18 07:50 RDW 13.9 % (11.9-15.9) 12/06/18 07:50 Plt Count 223 K/MM3 (134-434) 12/06/18 07:50 MPV 9.8 fl (7.5-11.1) 12/06/18 07:50 Sodium 145 mmol/L (136-145) 12/06/18 07:50 Potassium 4.1 mmol/L (3.5-5.1) 12/06/18 07:50 Chloride 111 mmol/L (98-107) H 12/06/18 07:50 Carbon Dioxide 30 mmol/L (21-32) 12/06/18 07:50 Anion Gap 4 MMOL/L (8-16) L 12/06/18 07:50 BUN 15.5 mg/dL (7-18) 12/06/18 07:50 Creatinine 1.0 mg/dL (0.55-1.3) 12/06/18 07:50 Est GFR (CKD-EPI)AfAm 99.15 12/06/18 07:50 Est GFR (CKD-EPI)NonAf 85.55 12/06/18 07:50 Random Glucose 83 mg/dL (74-106) 12/06/18 07:50 Calcium 8.4 mg/dL (8.5-10.1) L 12/06/18 07:50 Total Bilirubin 0.6 mg/dL (0.2-1) 12/06/18 07:50 AST 8 U/L (15-37) L 12/06/18 07:50 ALT 16 U/L (13-61) 12/06/18 07:50 Alkaline Phosphatase 56 U/L (45-117) 12/06/18 07:50 Total Protein 6.1 g/dl (6.4-8.2) L 12/06/18 07:50 Albumin 3.3 g/dl (3.4-5.0) L 12/06/18 07:50 RPR Titer Nonreactive (NONREACTIVE) 12/06/18 07:50 HIV 1&2 Antibody Screen Negative 12/06/18 07:50 HIV P24 Antigen Negative 12/06/18 07:50 lab noted 12/07/18 14:10 Assessment: 11/17/18 14:11 alcohol withdrawal sx Plan: continue alcohol detox
--- NOTE | 2018-12-08 14:12 | PN ---
[facility] CIWA - CIWA Score Nausea/Vomitin-Mild Nausea/No Vomiting Muscle Tremors: 2 Anxiety: 2 Agitation: 3 Paroxysmal Sweats: 1-Minimal Palms Moist Orientation: 0-Oriented Tacttile Disturbances: 1-Very Mild Itch/Numbness Auditory Disturbances: 0-None Visual Disturbances: 0-None Headache: 1-Very Mild CIWA-Ar Total Score: 11 S Progress Note (SOAP) Subjective: feeling better today less tremor mild headache little anxious Objective: 12/08/18 14:14 Vital Signs Temperature 98.4 F 12/08/18 13:26 Pulse Rate 55 L 12/08/18 13:26 Respiratory Rate 16 12/08/18 13:26 Blood Pressure 109/68 12/08/18 13:26 O2 Sat by Pulse Oximetry (%) Laboratory Last Values WBC 6.0 K/mm3 (4.0-10.0) 12/06/18 07:50 RBC 4.76 M/mm3 (4.00-5.60) 12/06/18 07:50 Hgb 14.6 GM/dL (11.7-16.9) 12/06/18 07:50 Hct 43.1 % (35.4-49) 12/06/18 07:50 MCV 90.6 fl (80-96) 12/06/18 07:50 MCH 30.6 pg (25.7-33.7) 12/06/18 07:50 MCHC 33.7 g/dl (32.0-35.9) 12/06/18 07:50 RDW 13.9 % (11.9-15.9) 12/06/18 07:50 Plt Count 223 K/MM3 (134-434) 12/06/18 07:50 MPV 9.8 fl (7.5-11.1) 12/06/18 07:50 Sodium 145 mmol/L (136-145) 12/06/18 07:50 Potassium 4.1 mmol/L (3.5-5.1) 12/06/18 07:50 Chloride 111 mmol/L (98-107) H 12/06/18 07:50 Carbon Dioxide 30 mmol/L (21-32) 12/06/18 07:50 Anion Gap 4 MMOL/L (8-16) L 12/06/18 07:50 BUN 15.5 mg/dL (7-18) 12/06/18 07:50 Creatinine 1.0 mg/dL (0.55-1.3) 12/06/18 07:50 Est GFR (CKD-EPI)AfAm 99.15 12/06/18 07:50 Est GFR (CKD-EPI)NonAf 85.55 12/06/18 07:50 Random Glucose 83 mg/dL (74-106) 12/06/18 07:50 Calcium 8.4 mg/dL (8.5-10.1) L 12/06/18 07:50 Total Bilirubin 0.6 mg/dL (0.2-1) 12/06/18 07:50 AST 8 U/L (15-37) L 12/06/18 07:50 ALT 16 U/L (13-61) 12/06/18 07:50 Alkaline Phosphatase 56 U/L (45-117) 12/06/18 07:50 Total Protein 6.1 g/dl (6.4-8.2) L 12/06/18 07:50 Albumin 3.3 g/dl (3.4-5.0) L 12/06/18 07:50 RPR Titer Nonreactive (NONREACTIVE) 12/06/18 07:50 HIV 1&2 Antibody Screen Negative 12/06/18 07:50 HIV P24 Antigen Negative 12/06/18 07:50 lab noted Assessment: 12/08/18 14:15 alcohol withdrawal sx Plan: continue alcohol detox
[2018-12-08] MEDS: THIAMINE HCL 100 MG TABLET (FP) PO SCH (22:34)
[2018-12-09] MEDS: chlordiazePOXIDE HCL 10 MG CAPSULE PO SCH ×2 (07:19→17:39)
[2018-12-09] MEDS: PRENATAL VITAMINS W/ FOLIC ACID TABLET (FP) PO SCH (10:15)
--- NOTE | 2018-12-09 11:53 | PN ---
S CIWA - CIWA Score Nausea/Vomitin-No Nausea/No Vomiting Muscle Tremors: 2 Anxiety: 2 Agitation: 2 Paroxysmal Sweats: 1-Minimal Palms Moist Orientation: 0-Oriented Tacttile Disturbances: 1-Very Mild Itch/Numbness Auditory Disturbances: 0-None Visual Disturbances: 0-None Headache: 0-None Present CIWA-Ar Total Score: 8 BHS Progress Note (SOAP) Subjective: feeling better today less tremor mild anxiety discuss aftercare with staff prefers CD out patient Objective: 12/09/18 12:00 Vital Signs Temperature 97.4 F L 12/09/18 09:05 Pulse Rate 57 L 12/09/18 09:05 Respiratory Rate 18 12/09/18 09:05 Blood Pressure 102/58 L 12/09/18 09:05 O2 Sat by Pulse Oximetry (%) Laboratory Last Values WBC 6.0 K/mm3 (4.0-10.0) 12/06/18 07:50 RBC 4.76 M/mm3 (4.00-5.60) 12/06/18 07:50 Hgb 14.6 GM/dL (11.7-16.9) 12/06/18 07:50 Hct 43.1 % (35.4-49) 12/06/18 07:50 MCV 90.6 fl (80-96) 12/06/18 07:50 MCH 30.6 pg (25.7-33.7) 12/06/18 07:50 MCHC 33.7 g/dl (32.0-35.9) 12/06/18 07:50 RDW 13.9 % (11.9-15.9) 12/06/18 07:50 Plt Count 223 K/MM3 (134-434) 12/06/18 07:50 MPV 9.8 fl (7.5-11.1) 12/06/18 07:50 Sodium 145 mmol/L (136-145) 12/06/18 07:50 Potassium 4.1 mmol/L (3.5-5.1) 12/06/18 07:50 Chloride 111 mmol/L (98-107) H 12/06/18 07:50 Carbon Dioxide 30 mmol/L (21-32) 12/06/18 07:50 Anion Gap 4 MMOL/L (8-16) L 12/06/18 07:50 BUN 15.5 mg/dL (7-18) 12/06/18 07:50 Creatinine 1.0 mg/dL (0.55-1.3) 12/06/18 07:50 Est GFR (CKD-EPI)AfAm 99.15 12/06/18 07:50 Est GFR (CKD-EPI)NonAf 85.55 12/06/18 07:50 Random Glucose 83 mg/dL (74-106) 12/06/18 07:50 Calcium 8.4 mg/dL (8.5-10.1) L 12/06/18 07:50 Total Bilirubin 0.6 mg/dL (0.2-1) 12/06/18 07:50 AST 8 U/L (15-37) L 12/06/18 07:50 ALT 16 U/L (13-61) 12/06/18 07:50 Alkaline Phosphatase 56 U/L (45-117) 12/06/18 07:50 Total Protein 6.1 g/dl (6.4-8.2) L 12/06/18 07:50 Albumin 3.3 g/dl (3.4-5.0) L 12/06/18 07:50 RPR Titer Nonreactive (NONREACTIVE) 12/06/18 07:50 HIV 1&2 Antibody Screen Negative 12/06/18 07:50 HIV P24 Antigen Negative 12/06/18 07:50 lab noted Assessment: 12/09/18 12:02 alcohol withdrawal sx Plan: continue alcohol detox
[2018-12-09] MEDS: ACETAMINOPHEN 325 MG TABLET (FP) PO PRN (12:09)
[2018-12-09] MEDS: THIAMINE HCL 100 MG TABLET (FP) PO SCH (22:27)
[2018-12-10] MEDS ORDERED: chlordiazePOXIDE HCL 10 MG CAPSULE PO ONE (05:00)
[2018-12-10 06:13] VITALS: BP 95/64; PULSE 62; TEMP 97.6
--- NOTE | 2018-12-10 16:00 | DS ---
[facility] Detox Discharge Summary Admission Date: 12/05/18 Discharge Date: 12/10/18 - History Present History: Alcohol Dependence Additional Comments: 53 years old male admitted on 12/05/18 for alcohol withdrawal sx no complication throughout the detox stay alert oriented x 3 denies dizziness no shortness of breath - Physical Exam Results Vital Signs: Vital Signs Temperature 97.6 F 12/10/18 06:12 Pulse Rate 62 12/10/18 06:12 Respiratory Rate 18 12/10/18 06:12 Blood Pressure 95/64 12/10/18 06:12 O2 Sat by Pulse Oximetry (%) Pertinent Admission Physical Exam Findings: alcohol withdrawal sx Laboratory Last Values WBC 6.0 K/mm3 (4.0-10.0) 12/06/18 07:50 RBC 4.76 M/mm3 (4.00-5.60) 12/06/18 07:50 Hgb 14.6 GM/dL (11.7-16.9) 12/06/18 07:50 Hct 43.1 % (35.4-49) 12/06/18 07:50 MCV 90.6 fl (80-96) 12/06/18 07:50 MCH 30.6 pg (25.7-33.7) 12/06/18 07:50 MCHC 33.7 g/dl (32.0-35.9) 12/06/18 07:50 RDW 13.9 % (11.9-15.9) 12/06/18 07:50 Plt Count 223 K/MM3 (134-434) 12/06/18 07:50 MPV 9.8 fl (7.5-11.1) 12/06/18 07:50 Sodium 145 mmol/L (136-145) 12/06/18 07:50 Potassium 4.1 mmol/L (3.5-5.1) 12/06/18 07:50 Chloride 111 mmol/L (98-107) H 12/06/18 07:50 Carbon Dioxide 30 mmol/L (21-32) 12/06/18 07:50 Anion Gap 4 MMOL/L (8-16) L 12/06/18 07:50 BUN 15.5 mg/dL (7-18) 12/06/18 07:50 Creatinine 1.0 mg/dL (0.55-1.3) 12/06/18 07:50 Est GFR (CKD-EPI)AfAm 99.15 12/06/18 07:50 Est GFR (CKD-EPI)NonAf 85.55 12/06/18 07:50 Random Glucose 83 mg/dL (74-106) 12/06/18 07:50 Calcium 8.4 mg/dL (8.5-10.1) L 12/06/18 07:50 Total Bilirubin 0.6 mg/dL (0.2-1) 12/06/18 07:50 AST 8 U/L (15-37) L 12/06/18 07:50 ALT 16 U/L (13-61) 12/06/18 07:50 Alkaline Phosphatase 56 U/L (45-117) 12/06/18 07:50 Total Protein 6.1 g/dl (6.4-8.2) L 12/06/18 07:50 Albumin 3.3 g/dl (3.4-5.0) L 12/06/18 07:50 RPR Titer Nonreactive (NONREACTIVE) 12/06/18 07:50 HIV 1&2 Antibody Screen Negative 12/06/18 07:50 HIV P24 Antigen Negative 12/06/18 07:50 lab noted - Treatment Hospital Course: Detox Protocol Followed, Detoxed Safely, Responded well, Discharged Condition Good, Rehab Referral Accepted Patient has Accepted a Rehab Referral to: [facility] - Medication Discharge Medications: Ambulatory Orders Quetiapine Fumarate [Seroquel -] 400 mg PO HS 08/03/18 Sertraline HCl [Zoloft] 100 mg PO DAILY 08/03/18 clonazePAM [Clonazepam] 2 mg PO HS 12/05/18 - Diagnosis (1) Alcohol dependence with uncomplicated withdrawal Status: Acute (2) Hepatitis C Status: Chronic Qualifiers: Viral hepatitis chronicity: chronic Hepatic coma status: without hepatic coma Qualified Code(s): B18.2 - Chronic viral hepatitis C (3) Nicotine dependence Status: Acute Qualifiers: Nicotine product type: cigarettes Substance use status: in withdrawal Qualified Code(s): F17.213 - Nicotine dependence, cigarettes, with withdrawal (4) Substance induced mood disorder Status: Suspected (5) History of syphilis Status: Resolved (6) Positive PPD Status: Resolved - AMA Did Patient Leave Against Medical Advice: No
== END 2018-12-10 08:54 | disposition home or self-care (01) | DRG 774 ==
LOC: YASAS 09:10 → Y3N 11:53
PROVIDERS: ADMIT Surgery; ATTEND Surgery
PROC: HZ2ZZZZ Detoxification Services for Substance Abuse Treatment (ICD-10-PCS; principal; 2018-12-05)
DX: F10.230 Alcohol dependence with withdrawal, uncomplicated (principal); F14.20 Cocaine dependence, uncomplicated; F17.213 Nicotine dependence, cigarettes, with withdrawal; F19.24 Other psychoactive substance dependence with psychoactive substance-induced mood disorder; F43.10 Post-traumatic stress disorder, unspecified; B18.2 Chronic viral hepatitis C; R76.11 Nonspecific reaction to tuberculin skin test without active tuberculosis; D57.00 Hb-SS disease with crisis, unspecified; R63.8 Other symptoms and signs concerning food and fluid intake; Z87.438 Personal history of other diseases of male genital organs
CPT/HCPCS: 36415; 80053; 85027; 86593; 87389

== ENCOUNTER 2018-12-28 08:25 | Inpatient (IN) | payer OTHER ==
[2018-12-28 09:58] VITALS: BMI 21.2
--- NOTE | 2018-12-28 10:34 | HP ---
CIWA Score Nausea/Vomitin Muscle Tremors: 2 Anxiety: 4-Mod. Anxious/Guarded Agitation: 3 Paroxysmal Sweats: 1-Minimal Palms Moist Orientation: 1-Uncertain about Date Tacttile Disturbances: 1-Very Mild Itch/Numbness Auditory Disturbances: 0-None Visual Disturbances: 2-Mild Sensitivity Headache: 4-Moderately Severe (patient meets criteria for detox) CIWA-Ar Total Score: 20 - Admission Criteria [facility]ASAS Guidelines: Admission for Medically Managed Detox: Requires at least one of the followin. CIWA greater than 12 2. Seizures within the past 24 hours 3. Delirium tremens within the past 24 hours 4. Hallucinations within the past 24 hours 5. Acute intervention needed for co occurring medical disorder 6. Acute intervention needed for co occurring psychiatric disorder 7. Severe withdrawal that cannot be handled at a lower level of care (continued vomiting, continued diarrhea, abnormal vital signs) requiring intravenous medication and/or fluids 8. Admission ROS S - HPI Chief Complaint: " I'm here because I'm trying to stop drinking and if I didn't come here this morning, I would have gone straight to get a beer." " I made a conscious choice to come here today/" Allergies/Adverse Reactions: Allergies Allergy/AdvReac Type Severity Reaction Status Date / Time No Known Allergies Allergy Verified 12/28/18 09:50 History of Present Illness: Patient is a 53 year old male with Alcohol dependence. He started drinking alcohol at the age of 13. He's had multiple attempts at detox and rehab. Last time he only completed detox. However, he's relapsed every time because there haven't been any referral to other outpatient treatment and he hasn't engaged in AA or other therapeutic interventions as an outpatient. Patient is drinking 6 pack of been and 1 pint of vodka when he has the money. Patient is using cocaine $100/ daily. Patient smoke ciggarettes at 1ppd for 30 years. PMHx: PTSD, Anxiety D/O, Depression prescribed Zolof 100mg, Seroquell 400mg QHS, Klonopin 2mg once daily. Pt has Sickle Cell Disease. HCV positive but not yet treated. PSurg Hx: Appendectomy 10 years ago. Patient has no legal issues pending. Patient has poor support systems. No familial support. Patient is homeless in [facility] in [place]. Exam Limitations: No Limitations - Ebola screening Have you traveled outside of the country in the last 21 days: No Have you had contact with anyone from an Ebola affected area: No Have you been sick,other than usual withdrawal symptoms: No Do you have a fever: No - Review of Systems Constitutional: Chills, Diaphoresis EENT: reports: Blurred Vision Respiratory: reports: No Symptoms reported Cardiac: reports: No Symptoms Reported GI: reports: Diarrhea, Vomiting, Abdominal cramping : reports: No Symptoms Reported Musculoskeletal: reports: Back Pain Integumentary: reports: No Symptoms Reported Neuro: reports: Headache, Numbness Endocrine: reports: No Symptoms Reported Hematology: reports: No Symptoms Reported Psychiatric: reports: Judgement Intact, Mood/Affect Appropiate, Orientated x3, Anxious Other Systems: Reviewed and Negative Patient History - Patient Medical History Hx Anemia: No (sickle cell) Hx Asthma: No Hx Chronic Obstructive Pulmonary Disease (COPD): No Hx Cancer: No Hx Cardiac Disorders: No Hx Congestive Heart Failure: No Hx Hypertension: No Hx Hypercholesterolemia: No Hx Pacemaker: No HX Cerebrovascular Accident: No Hx Seizures: No Hx Dementia: No Hx Diabetes: No (hx prediabetes) Hx Gastrointestinal Disorders: No Hx Liver Disease: No Hx Genitourinary Disorders: No Hx Sexually Transmitted Disorders: Yes (hx syphilis - treated with injection) Hx Renal Disease (ESRD): No Hx Thyroid Disease: No Hx Human Immunodeficiency Virus (HIV): No Hx Hepatitis C: Yes (just diagnosed - not treated) Hx Depression: Yes (on meds, PTSD, sees psych and therapist) Hx Suicide Attempt: Yes (many years ago) Hx Bipolar Disorder: No Hx Schizophrenia: No - Patient Surgical History Past Surgical History: Yes Hx Neurologic Surgery: No Hx Cataract Extraction: No Hx Cardiac Surgery: No Hx Lung Surgery: No Hx Breast Surgery: No Hx Breast Biopsy: No Hx Abdominal Surgery: No Hx Appendectomy: Yes (IN 1999) Hx Cholecystectomy: No Hx Genitourinary Surgery: No Hx Section: No Hx Orthopedic Surgery: No Hx Hysterectomy: No Anesthesia Reaction: No - PPD History Previous Implant?: No (PPD + History) Documented Results: Positive w/proof Implanted On Prior [facility] Admission?: No Results: CXR(-) 05/13/18 PPD to be Administered?: No - Reproductive History Patient is a Female of Child Bearing Age (11 -55 yrs old): No - Smoking Cessation Smoking history: Current every day smoker Have you smoked in the past 12 months: Yes Aproximately how many cigarettes per day: 20 Cigars Per Day: 0 Hx Chewing Tobacco Use: No Initiated information on smoking cessation: Yes 'Breaking Loose' booklet given: 12/28/18 - Substance & Tx. History Hx Alcohol Use: Yes (1 pnt vodka and 6 pack beers.) Hx Substance Use: Yes Substance Use Type: Alcohol, Cocaine, Marijuana Hx Substance Use Treatment: Yes (multiple attempts at detox and rehab) - Substances abused Alcohol Substance route: Oral Frequency: Daily Amount used: 1 pint vodka BEER 1-2 X 6PKS ON ALT. DAY Age of first use: Date of last use: 12/27/18 Crack Substance route: Smoking Frequency: Daily Amount used: $100 Age of first use: Date of last use: 12/27/18 Cocaine Substance route: Inhalation Frequency: 3-6 times per week Amount used: over 200 dollars Age of first use: Date of last use: 08/24/18 Family Disease History - Family Disease History Family Disease History: Diabetes: Mother (), Brother (four - living hx etoh), CA: Father (throat - etoh), Other: Mother, Sister (NO SISTER) Admission Physical Exam S - Vital Signs Vital Signs: Vital Signs - 24 hr 12/28/18 09:52 Temperature 97.7 F Pulse Rate 66 Respiratory 16 Rate Blood Pressure 100/67 - Physical General Appearance: Yes: Mild Distress HEENTM: Yes: EOMI, Hearing grossly Normal, Normal ENT Inspection, Normocephalic , LEONCIO, Pharynx Normal Respiratory: Yes: Chest Non-Tender, Lungs Clear, Normal Breath Sounds, No Respiratory Distress, No Accessory Muscle Use Neck: Yes: No masses,lesions,Nodules, Supple, Trachea in good position Breast: Yes: Within Normal Limits Cardiology: Yes: Regular Rhythm, Regular Rate, S1, S2 Abdominal: Yes: Normal Bowel Sounds, Non Tender, Soft, Surgical Scar (right lower quadrant scar) Genitourinary: Yes: Within Normal Limits, Other (right testicular enlargement) Back: Yes: Normal Inspection Extremities: Yes: Normal Capillary Refill, Normal Inspection, Normal Range of Motion, Non-Tender 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: Yes: 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 II-XII NML intact, Fully Oriented, Alert, Motor Strength 5/5 Integumentary: Yes: Normal Color, Dry, Warm - Diagnostic (1) Alcohol dependence with uncomplicated withdrawal Current Visit: Yes Status: Acute (2) Cocaine dependence Current Visit: Yes Status: Acute Qualifiers: Substance use status: uncomplicated Qualified Code(s): F14.20 - Cocaine dependence, uncomplicated (3) Nicotine dependence Current Visit: Yes Status: Acute Qualifiers: Nicotine product type: cigarettes Substance use status: in withdrawal Qualified Code(s): F17.213 - Nicotine dependence, cigarettes, with withdrawal (4) Anxiety and depression Current Visit: Yes Status: Chronic (5) Hepatitis C Current Visit: Yes Status: Chronic Qualifiers: Viral hepatitis chronicity: chronic Hepatic coma status: without hepatic coma Qualified Code(s): B18.2 - Chronic viral hepatitis C Comment: newly diagnosed - not treated (6) PTSD (post-traumatic stress disorder) Current Visit: Yes Status: Chronic (7) History of syphilis Current Visit: Yes Status: Resolved Comment: treated in past (8) Positive PPD Current Visit: Yes Status: Resolved Comment: Last CXR 05/13/18 - Neg Cleared for Admission S - Detox or Rehab [facility] Level of Care: Medically Managed Screened but not Admitted - Documentation of Visit Screened but not Admitted: No Breathalyzer - Breathalyzer Breathalyzer: 0 (last drank last night, no money to drink) Vital Signs - Vital Signs Vital signs refused: No Temperature: 97.7 F Temperature source: Oral Pulse Rate: 66 Respiratory Rate: 16 Blood Pressure: 100/67 BP Location: Left Arm Blood Pressure position: Sitting - Height Height: 6 ft 3 in - Weight Weight: 170 lb Weight measurement method: Standing scale - BMI Body Mass Index (BMI): 21.2 - Bowel Function Bowel Movement: Yes (diarrhea ) POC Urine test - Test device test lot number: not applicable Urine Drug Screen - Test Device Lot number: [id number] Expiration date: 09/15/20 - Control Is test valid?: Yes - Results Drug screen NEGATIVE: No Urine drug screen results: [facility]-Cocaine Inpatient Rehab Admission - Rehab Decision to Admit Inpatient rehab admission?: No
[2018-12-28] MEDS ORDERED: MELATONIN 5 MG TABLETS PO PRN (10:49)
[2018-12-28] MEDS ORDERED: BISMUTH SUBSALICYLATE 262 MG/15 ML BTL PO PRN (10:49)
[2018-12-28] MEDS ORDERED: MAGNESIUM HYDROX 2400MG/30ML ORAL SUSPENSION 30 ML CUP PO PRN (10:49)
[2018-12-28] MEDS ORDERED: MAG HYDROX/AL HYDROX/SIMETH 30 ML UNIT-DOSE CUP PO PRN (10:49)
[2018-12-28] MEDS ORDERED: METHOCARBAMOL 500 MG TABLET PO PRN (10:49)
[2018-12-28] MEDS ORDERED: ACETAMINOPHEN 325 MG TABLET (FP) PO PRN (10:49)
[2018-12-28] MEDS ORDERED: chlordiazePOXIDE HCL 25 MG CAPSULE PO PRN (10:49)
[2018-12-28] MEDS ORDERED: hydrOXYzine HCL 25 MG TABLET (FP) PO PRN (10:49)
[2018-12-28] MEDS ORDERED: IBUPROFEN 400 MG TABLET (FP) PO PRN (10:49)
[2018-12-28] MEDS ORDERED: MENTHOL/PHENOL 1 EACH UD MM PRN (10:49)
[2018-12-28] MEDS ORDERED: MAGNESIUM CITRATE 300 ML BOTTLE PO PRN (10:49)
[2018-12-28] MEDS: NICOTINE 14 MG/24 HOURS TOPICAL PATCH TD SCH (12:42)
[2018-12-28 14:08] LABS: HEMATOCRIT 42.8 % (35.4-49); HEMOGLOBIN 14.4 GM/dL (11.7-16.9); MCH 30.6 pg (25.7-33.7); MCHC 33.7 g/dl (32.0-35.9); MEAN CELL VOLUME 90.7 fl (80-96); MEAN PLT VOLUME 10.4 fl (7.5-11.1); PLATELET COUNT 250 K/MM3 (134-434); RBC 4.71 M/mm3 (4.00-5.60); RDW 13.7 % (11.9-15.9); WHITE BLOOD COUNT 6.1 K/mm3 (4.0-10.0)
[2018-12-28 14:19] LABS: ALBUMIN 3.7 g/dl (3.4-5.0); BILIRUBIN,TOTAL 0.9 mg/dL (0.2-1); BLOOD UREA NITROGEN 14.8 mg/dL (7-18); POTASSIUM 4.1 mmol/L (3.5-5.1); TOT PROT 6.8 g/dl (6.4-8.2)
[2018-12-28] MEDS: ACETAMINOPHEN 325 MG TABLET (FP) PO PRN (17:56)
[2018-12-28] MEDS: chlordiazePOXIDE HCL 25 MG CAPSULE PO SCH (22:10)
[2018-12-28] MEDS: THIAMINE HCL 100 MG TABLET (FP) PO SCH (22:10)
[2018-12-29] MEDS: chlordiazePOXIDE HCL 25 MG CAPSULE PO SCH ×4 (07:36→22:08)
--- NOTE | 2018-12-29 10:31 | CONSULT ---
[facility] Psychiatric Consult - Data Date of interview: 12/29/18 Admission source: Self-referred Identifying data: Mr Reyes is a 53 years old single male, unemployed receving public assistance, living in a drop-in center seeking detox treatment for alcohol and cocaine Substance Abuse History: Reports history of alcohol and crack cocaine use. Refer to addiction counselor's summary for further information Medical History: Significant for hepatitis C, sicke cell anemia, PPD+, and history of treatment for syphilis and surgery for appendectomy in 1999. Smokes cigarettes 1 ppd Psychiatric History: Patient is well known to promotion writer from previous encounters during multiple admissions in this facility. Most recent encounter was on . Historical narrative remains consistent. He reports that his first psychiatric contact was in 2013 when he saw a psychiatrist at [facility] in the [place]. Reports that he was diagnosed with MDD, Anxiety and PTSD and started on medications. Reports that he has been receving outpatient treatment at the same clinic since and he is currently prescribed Zoloft 100 mg/ day, Seroquel 400 mg/hs and Klonopin 2 mg/day. Told promotion writer that eventhough he is adherent to OPD care(next appointment 12/21/18) he however does not take medications faithfully due to his addiction. When he saw promotion writer on 12/06/18 he declined resuming his psychotropic medications because he does not want to take them with detox medication. Claims after discharge on 12/10/18, he saw his psychiatrist at [facility] and he was prescribed medications. Denies previous psychiatric hospitalization. However, reports 2 previous suicidal attempts via overdose and most recently with a gun years ago. Claims he did not seek medical attention for the latter but sought for the former denying that it was intentional. At present, denies feeling depressed, anxious and reports sleeping well. Patient is again unwilling to continue taking his psychotropic medication while taking medications or detox Physical/Sexual Abuse/Trauma History: Denies history of emotional, physical or sexual abuse as well as DV relatiomship. No service Additional Comment: Denies legal Mental Status Exam - Mental Status Exam Alert and Oriented to: Time, Place, Person Cognitive Function: Fair Patient Appearance: Well Groomed Mood: Hopeful, Euthymic Patient Behavior: Cooperative Speech Pattern: Clear Voice Loudness: Normal Thought Process: Intact, Goal Oriented Hallucinations: Denies Suicidal Ideation: Denies Homicidal Ideation: Denies Insight/Judgement: Poor Sleep: Well Appetite: Good Muscle strength/Tone: Normal Gait/Station: Normal Psychiatric Findings - Problem List ([place] 1, 2,3) (1) PTSD (post-traumatic stress disorder) Current Visit: Yes Status: Chronic (2) Depressive disorder Current Visit: Yes Status: Chronic (3) MDD (major depressive disorder) Current Visit: No Status: Ruled-out (4) Alcohol dependence with uncomplicated withdrawal Current Visit: Yes Status: Acute (5) Cocaine dependence Current Visit: Yes Status: Acute Qualifiers: Substance use status: uncomplicated Qualified Code(s): F14.20 - Cocaine dependence, uncomplicated (6) Nicotine dependence Current Visit: Yes Status: Chronic Qualifiers: Nicotine product type: cigarettes Substance use status: in withdrawal Qualified Code(s): F17.213 - Nicotine dependence, cigarettes, with withdrawal (7) Hepatitis C Current Visit: Yes Status: Chronic Qualifiers: Viral hepatitis chronicity: chronic Hepatic coma status: without hepatic coma Qualified Code(s): B18.2 - Chronic viral hepatitis C Comment: newly diagnosed - not treated (8) History of syphilis Current Visit: Yes Status: Resolved Comment: treated in past (9) Positive PPD Current Visit: Yes Status: Resolved Comment: Last CXR 05/13/18 - Neg (10) Sickle cell disease Current Visit: No Status: Chronic Qualifiers: Sickle-cell associated disorders: with unspecified crisis Qualified Code(s) : D57.00 - Hb-SS disease with crisis, unspecified; D57.0 - Hb-SS disease with crisis (11) S/P appendectomy Current Visit: No Status: Resolved - Initial Treatment Plan Initial Treatment Plan: Continue inpatient dettoxification
[2018-12-29] MEDS: PRENATAL VITAMINS W/ FOLIC ACID TABLET (FP) PO SCH (11:15)
[2018-12-29] MEDS: NICOTINE 14 MG/24 HOURS TOPICAL PATCH TD SCH (11:15)
[2018-12-29] MEDS: ACETAMINOPHEN 325 MG TABLET (FP) PO PRN ×2 (11:18→17:46)
--- NOTE | 2018-12-29 12:02 | PN ---
S CIWA - CIWA Score Nausea/Vomitin-No Nausea/No Vomiting Muscle Tremors: 3 Anxiety: 2 Agitation: 2 Paroxysmal Sweats: 2 Orientation: 0-Oriented Tacttile Disturbances: 0-None Auditory Disturbances: 0-None Visual Disturbances: 0-None Headache: 0-None Present CIWA-Ar Total Score: 9 S Progress Note (SOAP) Subjective: sweats mild shakes interrupted sleep Objective: 12/29/18 12:01 Vital Signs Temperature 97.2 F L 12/29/18 09:36 Pulse Rate 71 12/29/18 09:36 Respiratory Rate 18 12/29/18 09:36 Blood Pressure 109/68 12/29/18 09:36 O2 Sat by Pulse Oximetry (%) Laboratory Tests 12/28/18 12/28/18 12/28/18 10:55 10:55 10:55 WBC 6.1 RBC 4.71 Hgb 14.4 Hct 42.8 MCV 90.7 MCH 30.6 MCHC 33.7 RDW 13.7 Plt Count 250 MPV 10.4 Sodium 142 Potassium 4.1 Chloride 107 Carbon Dioxide 30 Anion Gap 6 L BUN 14.8 Creatinine 1.0 Est GFR (CKD-EPI)AfAm 99.15 Est GFR (CKD-EPI)NonAf 85.55 Random Glucose 94 Calcium 9.0 Total Bilirubin 0.9 AST 12 L ALT 18 Alkaline Phosphatase 75 Total Protein 6.8 Albumin 3.7 RPR Titer Nonreactive labs noted aaox3 ambulating no acute distress Assessment: 12/29/18 12:01 mild withdrawal sx Plan: continue detox increase fluids
[2018-12-29] MEDS: THIAMINE HCL 100 MG TABLET (FP) PO SCH (22:09)
[2018-12-30] MEDS: chlordiazePOXIDE HCL 25 MG CAPSULE PO SCH ×4 (06:22→22:13)
[2018-12-30] MEDS: PRENATAL VITAMINS W/ FOLIC ACID TABLET (FP) PO SCH (10:04)
[2018-12-30] MEDS: NICOTINE 14 MG/24 HOURS TOPICAL PATCH TD SCH (10:04)
--- NOTE | 2018-12-30 10:04 | PN ---
S CIWA - CIWA Score Nausea/Vomitin-No Nausea/No Vomiting Muscle Tremors: 2 Anxiety: 2 Agitation: 0-Normal Activity Paroxysmal Sweats: 3 Orientation: 0-Oriented Tacttile Disturbances: 0-None Auditory Disturbances: 0-None Visual Disturbances: 0-None Headache: 2-Mild CIWA-Ar Total Score: 9 BHS Progress Note (SOAP) Subjective: c/o sweats, anxiety, headache, and shakes. Objective: 12/30/18 10:03 Vital Signs 12/30/18 12/30/18 12/30/18 03:30 07:26 09:37 Temperature 97.5 F L 98.4 F Pulse Rate 57 L 78 Respiratory 18 18 18 Rate Blood Pressure 86/60 L 104/62 Lab Results WBC 6.1 K/mm3 (4.0-10.0) 12/28/18 10:55 RBC 4.71 M/mm3 (4.00-5.60) 12/28/18 10:55 Hgb 14.4 GM/dL (11.7-16.9) 12/28/18 10:55 Hct 42.8 % (35.4-49) 12/28/18 10:55 MCV 90.7 fl (80-96) 12/28/18 10:55 MCHC 33.7 g/dl (32.0-35.9) 12/28/18 10:55 RDW 13.7 % (11.9-15.9) 12/28/18 10:55 Plt Count 250 K/MM3 (134-434) 12/28/18 10:55 Sodium 142 mmol/L (136-145) 12/28/18 10:55 Potassium 4.1 mmol/L (3.5-5.1) 12/28/18 10:55 Chloride 107 mmol/L (98-107) 12/28/18 10:55 Carbon Dioxide 30 mmol/L (21-32) 12/28/18 10:55 Anion Gap 6 MMOL/L (8-16) L 12/28/18 10:55 BUN 14.8 mg/dL (7-18) 12/28/18 10:55 Creatinine 1.0 mg/dL (0.55-1.3) 12/28/18 10:55 Random Glucose 94 mg/dL (74-106) 12/28/18 10:55 Calcium 9.0 mg/dL (8.5-10.1) 12/28/18 10:55 Labs noted. Assessment: 12/30/18 10:03 AOX3, in no respiratory distress. Full ROM, ambulating in the unit. Withdrawal symptoms. Plan: continue detox
[2018-12-30] MEDS: ACETAMINOPHEN 325 MG TABLET (FP) PO PRN ×2 (10:05→17:51)
[2018-12-30] MEDS: THIAMINE HCL 100 MG TABLET (FP) PO SCH (22:13)
[2018-12-31] MEDS ORDERED: chlordiazePOXIDE HCL 10 MG CAPSULE PO PRN
[2018-12-31] MEDS: chlordiazePOXIDE HCL 10 MG CAPSULE PO SCH ×4 (05:21→22:12)
[2018-12-31] MEDS: ACETAMINOPHEN 325 MG TABLET (FP) PO PRN ×3 (08:43→22:10)
[2018-12-31] MEDS: NICOTINE 14 MG/24 HOURS TOPICAL PATCH TD SCH (10:14)
[2018-12-31] MEDS: PRENATAL VITAMINS W/ FOLIC ACID TABLET (FP) PO SCH (10:14)
--- NOTE | 2018-12-31 10:36 | PN ---
S CIWA - CIWA Score Nausea/Vomitin-No Nausea/No Vomiting Muscle Tremors: None Anxiety: 3 Agitation: 0-Normal Activity Paroxysmal Sweats: 3 Orientation: 0-Oriented Tacttile Disturbances: 0-None Auditory Disturbances: 0-None Visual Disturbances: 0-None Headache: 2-Mild CIWA-Ar Total Score: 8 BHS Progress Note (SOAP) Subjective: c/o headache, sweats, and anxiety. Objective: 12/31/18 10:35 Vital Signs 12/31/18 12/31/18 12/31/18 03:30 08:22 09:43 Temperature 97.5 F L 98.2 F Pulse Rate 54 L 59 L Respiratory 18 18 18 Rate Blood Pressure 99/67 Lab Results WBC 6.1 K/mm3 (4.0-10.0) 12/28/18 10:55 RBC 4.71 M/mm3 (4.00-5.60) 12/28/18 10:55 Hgb 14.4 GM/dL (11.7-16.9) 12/28/18 10:55 Hct 42.8 % (35.4-49) 12/28/18 10:55 MCV 90.7 fl (80-96) 12/28/18 10:55 MCHC 33.7 g/dl (32.0-35.9) 12/28/18 10:55 RDW 13.7 % (11.9-15.9) 12/28/18 10:55 Plt Count 250 K/MM3 (134-434) 12/28/18 10:55 Sodium 142 mmol/L (136-145) 12/28/18 10:55 Potassium 4.1 mmol/L (3.5-5.1) 12/28/18 10:55 Chloride 107 mmol/L (98-107) 12/28/18 10:55 Carbon Dioxide 30 mmol/L (21-32) 12/28/18 10:55 Anion Gap 6 MMOL/L (8-16) L 12/28/18 10:55 BUN 14.8 mg/dL (7-18) 12/28/18 10:55 Creatinine 1.0 mg/dL (0.55-1.3) 12/28/18 10:55 Random Glucose 94 mg/dL (74-106) 12/28/18 10:55 Calcium 9.0 mg/dL (8.5-10.1) 12/28/18 10:55 Labs noted. Assessment: 12/31/18 10:35 AOX3, in no respiratory distress. Full ROM, ambulating in the unit. withdrawal symptoms. Plan: continue detox.
[2018-12-31] MEDS: THIAMINE HCL 100 MG TABLET (FP) PO SCH (22:10)
[2019-01-01] MEDS: chlordiazePOXIDE HCL 10 MG CAPSULE PO SCH ×2 (06:01→17:58)
[2019-01-01] MEDS: NICOTINE 14 MG/24 HOURS TOPICAL PATCH TD SCH (09:34)
[2019-01-01] MEDS: PRENATAL VITAMINS W/ FOLIC ACID TABLET (FP) PO SCH (09:34)
[2019-01-01] MEDS: ACETAMINOPHEN 325 MG TABLET (FP) PO PRN ×2 (09:34→22:14)
--- NOTE | 2019-01-01 11:37 | PN ---
S CIWA - CIWA Score Nausea/Vomitin-No Nausea/No Vomiting Muscle Tremors: None Anxiety: 2 Agitation: 0-Normal Activity Paroxysmal Sweats: 2 Orientation: 0-Oriented Tacttile Disturbances: 0-None Auditory Disturbances: 0-None Visual Disturbances: 0-None Headache: 1-Very Mild CIWA-Ar Total Score: 5 BHS Progress Note (SOAP) Subjective: c/o mild headache, anxiety, and sweats. Objective: 01/01/19 11:36 Vital Signs 01/01/19 01/01/19 06:00 09:42 Temperature 97.7 F 97.3 F L Pulse Rate 62 58 L Respiratory 18 18 Rate Blood Pressure 101/64 111/64 Assessment: 01/01/19 11:36 AOX3, in no acute respiratory distress. Full ROM, ambulating in the unit. mild Withdrawal symptoms. For discharge 01/02/19 Plan: continue detox. D/C in AM.
[2019-01-01] MEDS: THIAMINE HCL 100 MG TABLET (FP) PO SCH (22:14)
[2019-01-02] MEDS ORDERED: chlordiazePOXIDE HCL 10 MG CAPSULE PO ONE (05:00)
[2019-01-02 07:35] VITALS: BP 97/62; PULSE 62; TEMP 97.7
--- NOTE | 2019-01-02 12:07 | DS ---
[facility] Detox Discharge Summary Admission Date: 12/28/18 Discharge Date: 01/02/19 - History Present History: Alcohol Dependence, Cocaine Dependence Additional Comments: Pt is medically cleared and is discharge today. Pt completed his detox protocol and is discharge today. Pt is encouraged to follow-up with an outpatient CD program and to also follow-up with his pmd. Pt verbalized understanding. Pt is alert and oriented x3 and in no acute respiratory distress. Pertinent Past History: H/O alcohol and cocaine use disorder. - Physical Exam Results Vital Signs: Vital Signs Temperature 97.7 F 01/02/19 07:34 Pulse Rate 62 01/02/19 07:34 Respiratory Rate 18 01/02/19 07:34 Blood Pressure 97/62 01/02/19 07:34 O2 Sat by Pulse Oximetry (%) Vital Signs 01/02/19 07:34 Temperature 97.7 F Pulse Rate 62 Respiratory 18 Rate Blood Pressure 97/62 Lab Results WBC 6.1 K/mm3 (4.0-10.0) 12/28/18 10:55 RBC 4.71 M/mm3 (4.00-5.60) 12/28/18 10:55 Hgb 14.4 GM/dL (11.7-16.9) 12/28/18 10:55 Hct 42.8 % (35.4-49) 12/28/18 10:55 MCV 90.7 fl (80-96) 12/28/18 10:55 MCHC 33.7 g/dl (32.0-35.9) 12/28/18 10:55 RDW 13.7 % (11.9-15.9) 12/28/18 10:55 Plt Count 250 K/MM3 (134-434) 12/28/18 10:55 Sodium 142 mmol/L (136-145) 12/28/18 10:55 Potassium 4.1 mmol/L (3.5-5.1) 12/28/18 10:55 Chloride 107 mmol/L (98-107) 12/28/18 10:55 Carbon Dioxide 30 mmol/L (21-32) 12/28/18 10:55 Anion Gap 6 MMOL/L (8-16) L 12/28/18 10:55 BUN 14.8 mg/dL (7-18) 12/28/18 10:55 Creatinine 1.0 mg/dL (0.55-1.3) 12/28/18 10:55 Random Glucose 94 mg/dL (74-106) 12/28/18 10:55 Calcium 9.0 mg/dL (8.5-10.1) 12/28/18 10:55 Labs noted. Pertinent Admission Physical Exam Findings: withdrawal symptoms. - Treatment Hospital Course: Detox Protocol Followed, Detoxed Safely, Responded well, Discharged Condition Good - Medication Discharge Medications: Ambulatory Orders Quetiapine Fumarate [Seroquel -] 400 mg PO HS 08/03/18 Sertraline HCl [Zoloft] 100 mg PO DAILY 08/03/18 clonazePAM [Clonazepam] 2 mg PO HS 12/05/18 - Diagnosis (1) Alcohol dependence with uncomplicated withdrawal Status: Acute (2) Cocaine dependence Status: Acute Qualifiers: Substance use status: uncomplicated Qualified Code(s): F14.20 - Cocaine dependence, uncomplicated (3) Nicotine dependence Status: Chronic Qualifiers: Nicotine product type: cigarettes Substance use status: in withdrawal Qualified Code(s): F17.213 - Nicotine dependence, cigarettes, with withdrawal (4) Sickle cell disease Status: Chronic Qualifiers: Sickle-cell associated disorders: with unspecified crisis Qualified Code(s) : D57.00 - Hb-SS disease with crisis, unspecified; D57.0 - Hb-SS disease with crisis (5) History of syphilis Status: Resolved (6) Positive PPD Status: Resolved (7) S/P appendectomy Status: Resolved - AMA Did Patient Leave Against Medical Advice: No
== END 2019-01-02 09:47 | disposition home or self-care (01) | DRG 774 ==
LOC: YASAS 08:25 → Y6N 11:04
PROVIDERS: ADMIT Surgery; ATTEND Surgery
PROC: HZ2ZZZZ Detoxification Services for Substance Abuse Treatment (ICD-10-PCS; principal; 2018-12-28)
DX: F10.230 Alcohol dependence with withdrawal, uncomplicated (principal); F14.20 Cocaine dependence, uncomplicated; F17.213 Nicotine dependence, cigarettes, with withdrawal; F43.10 Post-traumatic stress disorder, unspecified; F32.9 Major depressive disorder, single episode, unspecified; D57.1 Sickle-cell disease without crisis; Z87.438 Personal history of other diseases of male genital organs; Z91.5 Personal history of self-harm
CPT/HCPCS: 36415; 80053; 85027; 86593

== ENCOUNTER 2019-01-19 18:44 | Inpatient (IN) | payer OTHER ==
[2019-01-19 22:59] VITALS: BMI 21.9
--- NOTE | 2019-01-20 00:44 | HP ---
CIWA Score Nausea/Vomitin Muscle Tremors: 2 Anxiety: 4-Mod. Anxious/Guarded Agitation: 0-Normal Activity Paroxysmal Sweats: No Perspiration Orientation: 0-Oriented Tacttile Disturbances: 0-None Auditory Disturbances: 0-None Visual Disturbances: 0-None Headache: 3-Moderate CIWA-Ar Total Score: 12 - Admission Criteria OASAS Guidelines: Admission for Medically Managed Detox: Requires at least one of the followin. CIWA greater than 12 2. Seizures within the past 24 hours 3. Delirium tremens within the past 24 hours 4. Hallucinations within the past 24 hours 5. Acute intervention needed for co occurring medical disorder 6. Acute intervention needed for co occurring psychiatric disorder 7. Severe withdrawal that cannot be handled at a lower level of care (continued vomiting, continued diarrhea, abnormal vital signs) requiring intravenous medication and/or fluids 8. Patient presents the following: CIWA greater than 12 Admission Criteria Met: Admission criteria met Admission ROS S - [facility] Chief Complaint: Patient states having withdrawing symptoms. Allergies/Adverse Reactions: Allergies Allergy/AdvReac Type Severity Reaction Status Date / Time No Known Allergies Allergy Verified 01/19/19 22:50 History of Present Illness: 53 yo presents w/ alcohol withdrawal symptoms seeking detox. Patient w/ multiple detox and rehab admissions to [facility]. Last discharge . States relapsed same night of discharge. Does not f/u w/ referrals to community support groups. Patient has a prescription for clonazepam but states stops taking when drinks. States last took over 4 days ago. Alcohol use since age 13. States currently drinks 2 -6 packs 12 ox beers and 1/ 2 pt liquor daily. Crack/cocaine use began at age 19. Currently using approx $100 daily. Nicotine use began at age 19. Currently 1 PPD Denies hx seizures, blackouts, or blackouts. Longest length of sobriety 18 months while in-patient in 2010 PMHx: Denies DM.States legs are swollen due to sitting for hours) Hx: PPD (+). Last CXR 05/13/18 - no active pulm disease. Denies cough or night sweats. RPR: 12/28/18: Non reactive. Will not repeat this visit. Hx MDD, Anxiety and PTSD. Denies thoughts of harming self or others. States on medications. States sees a MH Provider in the community. SHx: [facility] (undomiciled). Unemployed. Denies legal issues. Patient Name: Steve Reyes Date: 1965 Address: [address] [place] [address] Sex: Male Rx Written Rx Dispensed Drug Quantity Days Supply Prescriber Name 01/19/2019 01/19/2019 clonazepam 2 mg tablet 28 28 Kat French 12/21/2018 12/21/2018 clonazepam 2 mg tablet 28 28 Tigenoah, Luis A (NETWORK OPERATIONS TECHNICIAN) 11/23/2018 11/23/2018 clonazepam 2 mg tablet 28 28 Tigenoah, Luis A (NETWORK OPERATIONS TECHNICIAN) 10/27/2018 10/27/2018 clonazepam 2 mg tablet 28 28 Tigenoah, Luis A (NETWORK OPERATIONS TECHNICIAN) 09/29/2018 09/29/2018 clonazepam 2 mg tablet 28 28 Tigenoah, Luis A (NETWORK OPERATIONS TECHNICIAN) 08/28/2018 08/28/2018 clonazepam 2 mg tablet 28 28 Tigenoah, Luis A (NETWORK OPERATIONS TECHNICIAN) 07/31/2018 07/31/2018 clonazepam 2 mg tablet 28 28 Tigenoah, Luis A (NETWORK OPERATIONS TECHNICIAN) 07/03/2018 07/03/2018 clonazepam 2 mg tablet 28 28 Tigenoah, Luis A (NETWORK OPERATIONS TECHNICIAN) 06/05/2018 06/05/2018 clonazepam 2 mg tablet 28 28 Tigenoah, Luis A (NETWORK OPERATIONS TECHNICIAN) 05/08/2018 05/08/2018 clonazepam 2 mg tablet 28 28 Tigenoah, Luis A (NETWORK OPERATIONS TECHNICIAN) 04/10/2018 04/10/2018 clonazepam 2 mg tablet 28 28 Alek Nicholson MD 03/12/2018 03/12/2018 clonazepam 2 mg tablet 28 28 Tigenoah, Luis A (NETWORK OPERATIONS TECHNICIAN) 02/12/2018 02/12/2018 clonazepam 2 mg tablet 28 28 Tigenoah, Luis A (NETWORK OPERATIONS TECHNICIAN) Exam Limitations: No Limitations - Ebola screening Have you traveled outside of the country in the last 21 days: No (N) Have you had contact with anyone from an Ebola affected area: No Have you been sick,other than usual withdrawal symptoms: No Do you have a fever: No - Review of Systems Constitutional: Chills EENT: reports: Blurred Vision Respiratory: reports: No Symptoms reported Cardiac: reports: No Symptoms Reported GI: reports: Diarrhea (x1 today was watery, did not look at stool), Nausea, Vomiting (Vomited x 2 yellowish water) : reports: No Symptoms Reported Musculoskeletal: reports: Back Pain (Sharp achy back pain x 1 month. Notices when gets OOB. Improves /drinking. Denies accident/injury.) Integumentary: reports: No Symptoms Reported Neuro: reports: Headache ((R) sharmp temporal headache), Numbness (in fingertips.) Endocrine: reports: Increased Thirst Hematology: reports: No Symptoms Reported Psychiatric: reports: Orientated x3, Anxious, Depressed (MDD, Anxiety and PTSD. Denies thoughts of harming self or others.) Patient History - Patient Medical History Hx Anemia: No (sickle cell) Hx Asthma: No Hx Chronic Obstructive Pulmonary Disease (COPD): No Hx Cancer: No Hx Cardiac Disorders: No Hx Congestive Heart Failure: No Hx Hypertension: No Hx Hypercholesterolemia: No Hx Pacemaker: No HX Cerebrovascular Accident: No Hx Seizures: No Hx Dementia: No Hx Diabetes: No Hx Gastrointestinal Disorders: No Hx Liver Disease: No Hx Genitourinary Disorders: No Hx Sexually Transmitted Disorders: Yes (syphilis) Hx Renal Disease (ESRD): No Hx Thyroid Disease: No Hx Human Immunodeficiency Virus (HIV): No Hx Hepatitis C: Yes (just diagnosed - not treated) Hx Depression: Yes Hx Suicide Attempt: Yes Hx Bipolar Disorder: No Hx Schizophrenia: No - Patient Surgical History Past Surgical History: Yes Hx Neurologic Surgery: No Hx Cataract Extraction: No Hx Cardiac Surgery: No Hx Lung Surgery: No Hx Breast Surgery: No Hx Breast Biopsy: No Hx Abdominal Surgery: No Hx Appendectomy: Yes (IN 1999) Hx Cholecystectomy: No Hx Genitourinary Surgery: No Hx Section: No Hx Orthopedic Surgery: No Hx Hysterectomy: No Anesthesia Reaction: No - PPD History Previous Implant?: Yes Documented Results: Positive w/proof Implanted On Prior [facility] Admission?: Yes Results: CXR(-) 05/13/18 PPD to be Administered?: No - Smoking Cessation Smoking history: Current every day smoker Have you smoked in the past 12 months: Yes Aproximately how many cigarettes per day: 20 Cigars Per Day: 0 Hx Chewing Tobacco Use: No Initiated information on smoking cessation: Yes 'Breaking Loose' booklet given: 01/20/19 - Substance & Tx. History Hx Alcohol Use: Yes Hx Substance Use: Yes Substance Use Type: Alcohol, Cocaine Hx Substance Use Treatment: Yes (detox, rehab) - Substances abused Alcohol Substance route: Oral Frequency: Daily Amount used: 1 pint vodka BEER 1-2 X 6PKS ON ALT. DAY Age of first use: Date of last use: 01/19/19 Crack Substance route: Smoking Frequency: Daily Amount used: $100 Age of first use: Date of last use: 01/19/19 Cocaine Substance route: Inhalation Frequency: 3-6 times per week Amount used: over 200 dollars Age of first use: Date of last use: 08/24/18 Family Disease History - Family Disease History Family Disease History: Diabetes: Mother (), Brother (four - living hx etoh), CA: Father (throat - etoh), Other: Mother, Sister (NO SISTER) Admission Physical Exam S - Vital Signs Vital Signs: Vital Signs - 24 hr 01/19/19 01/19/19 22:55 23:56 Temperature 98.0 F 98.0 F Pulse Rate 63 63 Respiratory 16 16 Rate Blood Pressure 122/78 122/78 - Physical General Appearance: Yes: Mild Distress, Thin, Tremorous (ld) HEENTM: Yes: EOMI, Hearing grossly Normal, Normocephalic, Normal Voice, LEONCIO, Pharynx Normal Respiratory: Yes: Lungs Clear, Normal Breath Sounds, No Respiratory Distress Neck: Yes: No masses,lesions,Nodules, Supple Breast: Yes: Breast Exam Deferred Cardiology: Yes: Regular Rhythm, Regular Rate (HR: 60), S1, S2, Murmur Abdominal: Yes: Non Tender, Flat, Soft, Increased Bowel Sounds Genitourinary: Yes: Within Normal Limits Back: Yes: Normal Inspection Musculoskeletal: Yes: full range of Motion, Gait Steady Extremities: Yes: Normal Capillary Refill, Tremors (mild), Pedal Edema (2+ pitting edema toes to ankle area. (L) Transmetatrarsal = 26 cm; Ankle = 26.5 cm (R) Transmetatrarsal = 23 cm; Ankle = 23.5 cm) 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: Yes: search analyst II-XII NML intact, Fully Oriented, Alert, Motor Strength 5/5 Integumentary: Yes: Normal Color, Dry, Warm, Other (dry, cracked skin between toes and on bottom of feet) - Diagnostic (1) Pedal edema Current Visit: Yes Status: Acute Comment: (R) foot (2) Alcohol dependence with uncomplicated withdrawal Current Visit: Yes Status: Acute (3) Cocaine dependence Current Visit: Yes Status: Chronic Qualifiers: Substance use status: uncomplicated Qualified Code(s): F14.20 - Cocaine dependence, uncomplicated (4) Nicotine dependence Current Visit: Yes Status: Chronic Qualifiers: Nicotine product type: cigarettes Substance use status: in withdrawal Qualified Code(s): F17.213 - Nicotine dependence, cigarettes, with withdrawal (5) Positive PPD Current Visit: No Status: Chronic Comment: Last CXR 05/13/18 - Neg (6) Tinea pedis Current Visit: Yes Status: Chronic Qualifiers: Laterality: bilateral Qualified Code(s): B35.3 - Tinea pedis Cleared for Admission [facility] - Detox or Rehab [facility] Level of Care: Medically Managed Detox Regimen/Protocol: Librium Claeared for Rehab Admission: No Breathalyzer - Breathalyzer Breathalyzer: 0 POC Urine test - Test device test lot number: not applicable Urine Drug Screen - Test Device Lot number: [id number] Expiration date: 10/16/20 - Control Is test valid?: Yes - Results Drug screen NEGATIVE: No Urine drug screen results: MARITA-Cocaine Inpatient Rehab Admission - Rehab Decision to Admit Inpatient rehab admission?: No
[2019-01-20] MEDS ORDERED: NICOTINE POLACRILEX 2 MG GUM BUC PRN (01:35)
[2019-01-20] MEDS ORDERED: MELATONIN 5 MG TABLETS PO PRN (01:35)
[2019-01-20] MEDS ORDERED: MENTHOL/PHENOL 1 EACH UD MM PRN (01:35)
[2019-01-20] MEDS ORDERED: chlordiazePOXIDE HCL 10 MG CAPSULE PO PRN (01:35)
[2019-01-20] MEDS ORDERED: MAGNESIUM CITRATE 300 ML BOTTLE PO PRN (01:35)
[2019-01-20] MEDS ORDERED: MAGNESIUM HYDROX 2400MG/30ML ORAL SUSPENSION 30 ML CUP PO PRN (01:35)
[2019-01-20] MEDS ORDERED: BISMUTH SUBSALICYLATE 524 MG/30 ML UD PO PRN (01:35)
[2019-01-20] MEDS ORDERED: MAG HYDROX/AL HYDROX/SIMETH 30 ML UNIT-DOSE CUP PO PRN (01:35)
[2019-01-20] MEDS ORDERED: METHOCARBAMOL 500 MG TABLET PO PRN (01:35)
[2019-01-20] MEDS ORDERED: ACETAMINOPHEN 325 MG TABLET (FP) PO PRN (01:35)
[2019-01-20] MEDS ORDERED: COLLOIDAL OATMEAL 1 BAR EACH TP PRN (01:40)
[2019-01-20] MEDS: chlordiazePOXIDE HCL 25 MG CAPSULE PO SCH ×3 (06:45→22:10)
--- NOTE | 2019-01-20 08:02 | EKG ---
Test Reason : Blood Pressure : / mmHG Vent. Rate : 057 BPM Atrial Rate : 057 BPM P-R Int : 174 ms QRS Dur : 104 ms QT Int : 438 ms P-R-T Axes : 072 056 053 degrees QTc Int : 426 ms SINUS BRADYCARDIA INCOMPLETE RIGHT BUNDLE BRANCH BLOCK SEPTAL INFARCT (CITED ON OR BEFORE 21-MAR-2017) ABNORMAL ECG WHEN COMPARED WITH ECG OF 21-MAR-2017 19:41, QUESTIONABLE CHANGE IN INITIAL FORCES OF SEPTAL LEADS QT HAS SHORTENED Confirmed by MARITZA GREENWOOD, TRUMAN ([id number]) on 01/20/2019 8:02:25 AM Referred By: Confirmed By:TRUMAN SALAS MD
--- NOTE | 2019-01-20 10:22 | PN ---
S CIWA - CIWA Score Nausea/Vomitin Muscle Tremors: 2 Anxiety: 2 Agitation: 2 Paroxysmal Sweats: 1-Minimal Palms Moist Orientation: 0-Oriented Tacttile Disturbances: 1-Very Mild Itch/Numbness Auditory Disturbances: 0-None Visual Disturbances: 0-None Headache: 1-Very Mild CIWA-Ar Total Score: 11 BHS Progress Note (SOAP) Subjective: alert,irritable,anxious,interrupted sleep,tremor Objective: 01/20/19 10:21 Vital Signs Temperature 97.3 F L 01/20/19 09:08 Pulse Rate 61 01/20/19 09:08 Respiratory Rate 18 01/20/19 09:08 Blood Pressure 86/48 L 01/20/19 09:08 O2 Sat by Pulse Oximetry (%) labs pending Assessment: 01/20/19 10:21 withdrawal symptom Plan: continue detox,librium regimen
[2019-01-20] MEDS: PRENATAL VITAMINS W/ FOLIC ACID TABLET (FP) PO SCH (10:34)
[2019-01-20] MEDS: NICOTINE 21 MG/24 HOURS TOPICAL PATCH TD SCH (10:34)
[2019-01-20] MEDS: TOLNAFTATE 1% CREAM 15 GM TUBE TP SCH ×2 (10:35→22:11)
--- NOTE | 2019-01-20 11:50 | CONSULT ---
[facility] Psychiatric Consult - Data Date of interview: 01/20/19 Psychiatric History: Patient was approached twice at bedside. Told tag writer:" I got up here only this morning. I'm tired. Can we talk later?"
[2019-01-20 12:18] LABS: ALBUMIN 3.5 g/dl (3.4-5.0); BILIRUBIN,TOTAL 0.7 mg/dL (0.2-1); BLOOD UREA NITROGEN 13.1 mg/dL (7-18); CALCIUM 9.1 mg/dL (8.5-10.1); TOT PROT 6.3 g/dl (6.4-8.2)
[2019-01-20 12:29] LABS: HEMATOCRIT 42.1 % (35.4-49); HEMOGLOBIN 14.1 GM/dL (11.7-16.9); MCH 30.3 pg (25.7-33.7); MCHC 33.4 g/dl (32.0-35.9); MEAN CELL VOLUME 90.7 fl (80-96); MEAN PLT VOLUME 9.5 fl (7.5-11.1); PLATELET COUNT 244 K/MM3 (134-434); RBC 4.64 M/mm3 (4.00-5.60); RDW 13.7 % (11.9-15.9); WHITE BLOOD COUNT 5.9 K/mm3 (4.0-10.0)
[2019-01-20] MEDS: IBUPROFEN 400 MG TABLET (FP) PO PRN (13:06)
[2019-01-20 15:01] LABS: PH,URINE 6.5 (5.0-8.0); URINE APPEARANCE CLEAR; URINE BILIRUBIN NEGATIVE (NEGATIVE); URINE COLOR YELLOW; URINE GLUCOSE (UA) NEGATIVE (NEGATIVE); URINE KETONE NEGATIVE (NEGATIVE); URINE LEUK ESTERASE NEGATIVE (NEGATIVE); URINE NITRITE NEGATIVE (NEGATIVE); URINE PROTEIN NEGATIVE (NEGATIVE)
[2019-01-20] MEDS: THIAMINE HCL 100 MG TABLET (FP) PO SCH (22:10)
[2019-01-21] MEDS: chlordiazePOXIDE 5 MG CAPSULE PO SCH ×3 (05:55→21:09)
[2019-01-21] MEDS: ACETAMINOPHEN 325 MG TABLET (FP) PO PRN (09:40)
[2019-01-21] MEDS: TOLNAFTATE 1% CREAM 15 GM TUBE TP SCH ×2 (10:15→22:11)
[2019-01-21] MEDS: PRENATAL VITAMINS W/ FOLIC ACID TABLET (FP) PO SCH (10:15)
[2019-01-21] MEDS: NICOTINE 21 MG/24 HOURS TOPICAL PATCH TD SCH (10:16)
--- NOTE | 2019-01-21 10:55 | PN ---
S CIWA - CIWA Score Nausea/Vomitin-Mild Nausea/No Vomiting Muscle Tremors: 2 Anxiety: 3 Agitation: 3 Paroxysmal Sweats: No Perspiration Orientation: 0-Oriented Tacttile Disturbances: 0-None Auditory Disturbances: 0-None Visual Disturbances: 0-None Headache: 2-Mild CIWA-Ar Total Score: 11 S Progress Note (SOAP) Subjective: alert,irritable,anxious,interrupted sleep,tremor Objective: 01/21/19 10:53 Vital Signs Temperature 97.5 F L 01/21/19 09:19 Pulse Rate 72 01/21/19 09:19 Respiratory Rate 18 01/21/19 09:19 Blood Pressure 101/72 01/21/19 09:19 O2 Sat by Pulse Oximetry (%) Laboratory Last Values WBC 5.9 K/mm3 (4.0-10.0) 01/20/19 08:30 RBC 4.64 M/mm3 (4.00-5.60) 01/20/19 08:30 Hgb 14.1 GM/dL (11.7-16.9) 01/20/19 08:30 Hct 42.1 % (35.4-49) 01/20/19 08:30 MCV 90.7 fl (80-96) 01/20/19 08:30 MCH 30.3 pg (25.7-33.7) 01/20/19 08:30 MCHC 33.4 g/dl (32.0-35.9) 01/20/19 08:30 RDW 13.7 % (11.9-15.9) 01/20/19 08:30 Plt Count 244 K/MM3 (134-434) 01/20/19 08:30 MPV 9.5 fl (7.5-11.1) 01/20/19 08:30 Sodium 145 mmol/L (136-145) 01/20/19 08:30 Potassium 4.0 mmol/L (3.5-5.1) 01/20/19 08:30 Chloride 105 mmol/L (98-107) 01/20/19 08:30 Carbon Dioxide 31 mmol/L (21-32) 01/20/19 08:30 Anion Gap 9 MMOL/L (8-16) 01/20/19 08:30 BUN 13.1 mg/dL (7-18) 01/20/19 08:30 Creatinine 1.0 mg/dL (0.55-1.3) 01/20/19 08:30 Est GFR (CKD-EPI)AfAm 99.15 01/20/19 08:30 Est GFR (CKD-EPI)NonAf 85.55 01/20/19 08:30 Random Glucose 85 mg/dL (74-106) 01/20/19 08:30 Calcium 9.1 mg/dL (8.5-10.1) 01/20/19 08:30 Total Bilirubin 0.7 mg/dL (0.2-1) 01/20/19 08:30 AST 13 U/L (15-37) L 01/20/19 08:30 ALT 19 U/L (13-61) 01/20/19 08:30 Alkaline Phosphatase 66 U/L (45-117) 01/20/19 08:30 Total Protein 6.3 g/dl (6.4-8.2) L 01/20/19 08:30 Albumin 3.5 g/dl (3.4-5.0) 01/20/19 08:30 Urine Color Yellow 01/20/19 12:50 Urine Appearance Clear 01/20/19 12:50 Urine pH 6.5 (5.0-8.0) 01/20/19 12:50 Ur Specific [place] 1.010 (1.010-1.035) 01/20/19 12:50 Urine Protein Negative (NEGATIVE) 01/20/19 12:50 Urine Glucose (UA) Negative (NEGATIVE) 01/20/19 12:50 Urine Ketones Negative (NEGATIVE) 01/20/19 12:50 Urine Blood Negative (NEGATIVE) 01/20/19 12:50 Urine Nitrite Negative (NEGATIVE) 01/20/19 12:50 Urine Bilirubin Negative (NEGATIVE) 01/20/19 12:50 Urine Urobilinogen 1.0 mg/dL (0.2-1.0) 01/20/19 12:50 Ur Leukocyte Esterase Negative (NEGATIVE) 01/20/19 12:50 Assessment: 01/21/19 10:54 withdrawal symptom Plan: continue detox librium regimen
[2019-01-21] MEDS: THIAMINE HCL 100 MG TABLET (FP) PO SCH (22:10)
[2019-01-21] MEDS: IBUPROFEN 400 MG TABLET (FP) PO PRN (22:33)
[2019-01-22] MEDS ORDERED: chlordiazePOXIDE HCL 10 MG CAPSULE PO PRN
[2019-01-22] MEDS: chlordiazePOXIDE HCL 10 MG CAPSULE PO SCH ×3 (06:22→22:59)
[2019-01-22] MEDS: PRENATAL VITAMINS W/ FOLIC ACID TABLET (FP) PO SCH (09:43)
[2019-01-22] MEDS: NICOTINE 21 MG/24 HOURS TOPICAL PATCH TD SCH (09:43)
[2019-01-22] MEDS: TOLNAFTATE 1% CREAM 15 GM TUBE TP SCH ×2 (09:44→23:00)
[2019-01-22] MEDS: IBUPROFEN 400 MG TABLET (FP) PO PRN (09:45)
--- NOTE | 2019-01-22 11:28 | PN ---
[facility] CIWA - CIWA Score Nausea/Vomitin-Mild Nausea/No Vomiting Muscle Tremors: 1-None Visible, but [place] Anxiety: 1-Mildly Anxious Agitation: 1-Slight > Activity Paroxysmal Sweats: No Perspiration Orientation: 0-Oriented Tacttile Disturbances: 0-None Auditory Disturbances: 0-None Visual Disturbances: 0-None Headache: 1-Very Mild CIWA-Ar Total Score: 5 S Progress Note (SOAP) Subjective: alert,irritable,interrupted sleep,pain in the body Objective: 01/22/19 11:27 Vital Signs Temperature 98.0 F 01/22/19 09:27 Pulse Rate 64 01/22/19 09:27 Respiratory Rate 18 01/22/19 09:27 Blood Pressure 109/60 01/22/19 09:27 O2 Sat by Pulse Oximetry (%) Assessment: 01/22/19 11:28 withdrawal symptom Plan: continue detox librium regimen,discharge in am
[2019-01-22] MEDS: ACETAMINOPHEN 325 MG TABLET (FP) PO PRN (16:31)
[2019-01-22 21:14] VITALS: BP 113/69; PULSE 62; TEMP 98.2
[2019-01-22] MEDS: THIAMINE HCL 100 MG TABLET (FP) PO SCH (23:00)
[2019-01-23] MEDS ORDERED: chlordiazePOXIDE HCL 10 MG CAPSULE PO ONE (05:00)
--- NOTE | 2019-01-23 14:12 | DS ---
[facility] Detox Discharge Summary Admission Date: 01/20/19 Discharge Date: 01/23/19 - History Present History: Alcohol Dependence, Cocaine Dependence Additional Comments: Pt is medically cleared and discharge today. Pt completed his detox protocol. Pt is encouraged to follow-up with an outpatient CD program and also to follow- up with his pmd. Pt verbalized understanding. Pt is alert and oriented x3 and in no acute respiratory distress. Pertinent Past History: H/o alcohol and cocain use disorder. - Physical Exam Results Vital Signs: Vital Signs Temperature 98.2 F 01/22/19 21:13 Pulse Rate 62 01/22/19 21:13 Respiratory Rate 18 01/23/19 03:30 Blood Pressure 113/69 01/22/19 21:13 O2 Sat by Pulse Oximetry (%) Lab Results WBC 5.9 K/mm3 (4.0-10.0) 01/20/19 08:30 RBC 4.64 M/mm3 (4.00-5.60) 01/20/19 08:30 Hgb 14.1 GM/dL (11.7-16.9) 01/20/19 08:30 Hct 42.1 % (35.4-49) 01/20/19 08:30 MCV 90.7 fl (80-96) 01/20/19 08:30 MCHC 33.4 g/dl (32.0-35.9) 01/20/19 08:30 RDW 13.7 % (11.9-15.9) 01/20/19 08:30 Plt Count 244 K/MM3 (134-434) 01/20/19 08:30 Sodium 145 mmol/L (136-145) 01/20/19 08:30 Potassium 4.0 mmol/L (3.5-5.1) 01/20/19 08:30 Chloride 105 mmol/L (98-107) 01/20/19 08:30 Carbon Dioxide 31 mmol/L (21-32) 01/20/19 08:30 Anion Gap 9 MMOL/L (8-16) 01/20/19 08:30 BUN 13.1 mg/dL (7-18) 01/20/19 08:30 Creatinine 1.0 mg/dL (0.55-1.3) 01/20/19 08:30 Random Glucose 85 mg/dL (74-106) 01/20/19 08:30 Calcium 9.1 mg/dL (8.5-10.1) 01/20/19 08:30 Vital Signs (72 hours) 01/20/19 01/20/19 01/21/19 16:57 21:15 00:30 Temperature 98.4 F 98.4 F Pulse Rate 64 65 Respiratory 18 16 18 Rate Blood Pressure 107/60 111/62 01/21/19 01/21/19 01/21/19 03:30 07:11 09:19 Temperature 97.7 F 97.5 F L Pulse Rate 54 L 72 Respiratory 18 18 18 Rate Blood Pressure 97/60 101/72 01/21/19 01/21/19 01/21/19 13:38 17:20 20:33 Temperature 97.9 F 98.1 F 98.2 F Pulse Rate 58 L 57 L 60 Respiratory 18 18 18 Rate Blood Pressure 98/60 112/58 L 104/53 L 01/22/19 01/22/19 01/22/19 00:30 03:30 07:02 Temperature 97.5 F L Pulse Rate 57 L Respiratory 18 18 18 Rate Blood Pressure 90/55 L 01/22/19 01/22/19 01/22/19 09:27 15:02 18:11 Temperature 98.0 F 97.7 F 98.1 F Pulse Rate 64 68 59 L Respiratory 18 18 16 Rate Blood Pressure 109/60 111/66 123/70 01/22/19 01/23/19 01/23/19 21:13 00:30 03:30 Temperature 98.2 F Pulse Rate 62 Respiratory 16 18 18 Rate Blood Pressure 113/69 Pertinent Admission Physical Exam Findings: withdrawal symptoms. - Treatment Hospital Course: Detox Protocol Followed, Detoxed Safely, Responded well, Discharged Condition Good - Medication Discharge Medications: Ambulatory Orders Quetiapine Fumarate [Seroquel -] 400 mg PO HS 08/03/18 Sertraline HCl [Zoloft] 100 mg PO DAILY 08/03/18 clonazePAM [Clonazepam] 2 mg PO HS 12/05/18 - Diagnosis (1) Alcohol dependence with uncomplicated withdrawal Status: Acute (2) Pedal edema Status: Acute (3) Cocaine dependence Status: Chronic Qualifiers: Substance use status: uncomplicated Qualified Code(s): F14.20 - Cocaine dependence, uncomplicated (4) Positive PPD Status: Chronic (5) Sickle cell disease Status: Chronic Qualifiers: Sickle-cell associated disorders: with unspecified crisis Qualified Code(s) : D57.00 - Hb-SS disease with crisis, unspecified; D57.0 - Hb-SS disease with crisis (6) History of syphilis Status: Resolved (7) S/P appendectomy Status: Resolved - AMA Did Patient Leave Against Medical Advice: No [facility]HS CIWA - CIWA Score Nausea/Vomitin-No Nausea/No Vomiting Muscle Tremors: None Anxiety: 1-Mildly Anxious Agitation: 0-Normal Activity Paroxysmal Sweats: 1-Minimal Palms Moist Orientation: 0-Oriented Tacttile Disturbances: 0-None Auditory Disturbances: 0-None Visual Disturbances: 0-None Headache: 0-None Present CIWA-Ar Total Score: 2
== END 2019-01-23 09:15 | disposition home or self-care (01) | DRG 774 ==
LOC: YASAS 18:44 → Y6N 01-20 01:46
PROVIDERS: ADMIT Surgery; ATTEND Surgery
PROC: HZ2ZZZZ Detoxification Services for Substance Abuse Treatment (ICD-10-PCS; principal; 2019-01-20)
DX: F10.230 Alcohol dependence with withdrawal, uncomplicated (principal); F14.20 Cocaine dependence, uncomplicated; F17.210 Nicotine dependence, cigarettes, uncomplicated; R60.9 Edema, unspecified; R76.11 Nonspecific reaction to tuberculin skin test without active tuberculosis; D57.00 Hb-SS disease with crisis, unspecified; B18.2 Chronic viral hepatitis C; R01.1 Cardiac murmur, unspecified; B35.3 Tinea pedis; Z87.438 Personal history of other diseases of male genital organs
CPT/HCPCS: 36415; 80053; 81003; 85027; 93005; 93010

== ENCOUNTER 2019-02-20 10:22 | Inpatient (IN) | payer OTHER ==
[2019-02-20 11:26] VITALS: BMI 22.2
--- NOTE | 2019-02-20 11:53 | HP ---
CIWA Score Nausea/Vomitin Muscle Tremors: 2 Anxiety: 3 Agitation: 2 Paroxysmal Sweats: 2 Orientation: 0-Oriented Tacttile Disturbances: 2-Mild Itch/Numbness/Burn Auditory Disturbances: 2-Mild Harshness/Frighten Visual Disturbances: 2-Mild Sensitivity Headache: 3-Moderate CIWA-Ar Total Score: 21 - Admission Criteria OASAS Guidelines: Admission for Medically Managed Detox: Requires at least one of the followin. CIWA greater than 12 2. Seizures within the past 24 hours 3. Delirium tremens within the past 24 hours 4. Hallucinations within the past 24 hours 5. Acute intervention needed for co occurring medical disorder 6. Acute intervention needed for co occurring psychiatric disorder 7. Severe withdrawal that cannot be handled at a lower level of care (continued vomiting, continued diarrhea, abnormal vital signs) requiring intravenous medication and/or fluids 8. Patient presents the following: CIWA greater than 12 Admission Criteria Met: Admission criteria met Admitting History and Physical - Smoking History Smoking history: Current every day smoker Have you smoked in the past 12 months: Yes Aproximately how many cigarettes per day: 20 - Alcohol/Substance Use Hx Alcohol Use: Yes Admission ROS [facility] Chief Complaint: "I am here for detox to prevent me from going out to have more drinks" Allergies/Adverse Reactions: Allergies Allergy/AdvReac Type Severity Reaction Status Date / Time No Known Allergies Allergy Verified 02/20/19 13:12 History of Present Illness: 54 year old man with multiple admissions to [facility] (every month) presents for detox. He denies blackouts or alcohol related seizures. Patient is noted with swelling to the RLE, mild tenderness, denies trauma. As per patient, symptoms have been present for the past 2 weeks and it is getting worse. Patient agrees to ED transfer for doppler studies to r/o DVT. Patient evaluated in the ED, doppler negative for DVT, possible cellulitis, keflex initiated. Exam Limitations: No Limitations - Ebola screening Have you traveled outside of the country in the last 21 days: No (N) Have you had contact with anyone from an Ebola affected area: No Have you been sick,other than usual withdrawal symptoms: No Do you have a fever: No - Review of Systems Constitutional: Loss of Appetite, Changes in sleep, Unexplained wgt Loss EENT: reports: No Symptoms Reported Respiratory: reports: Cough (on and off) Cardiac: reports: No Symptoms Reported GI: reports: Diarrhea, Nausea, Poor Appetite, Vomiting, Abdominal cramping : reports: No Symptoms Reported Musculoskeletal: reports: Back Pain, Joint Pain, Muscle Pain Integumentary: reports: Flushing Neuro: reports: Headache, Numbness, Tremors Endocrine: reports: No Symptoms Reported Hematology: reports: No Symptoms Reported Psychiatric: reports: Anxious, Depressed Other Systems: Reviewed and Negative Patient History - Patient Medical History Hx Anemia: No Hx Asthma: No Hx Chronic Obstructive Pulmonary Disease (COPD): No Hx Cancer: No Hx Cardiac Disorders: No Hx Congestive Heart Failure: No Hx Hypertension: No Hx Hypercholesterolemia: No Hx Pacemaker: No HX Cerebrovascular Accident: No Hx Seizures: No Hx Dementia: No Hx Diabetes: No Hx Gastrointestinal Disorders: No Hx Liver Disease: No Hx Genitourinary Disorders: No Hx Sexually Transmitted Disorders: Yes (syphilis) Hx Renal Disease (ESRD): No Hx Thyroid Disease: No Hx Human Immunodeficiency Virus (HIV): No Hx Hepatitis C: Yes ( not treated) Hx Depression: Yes Hx Suicide Attempt: Yes (remote hx) Hx Bipolar Disorder: No Hx Schizophrenia: No - Patient Surgical History Past Surgical History: Yes Hx Neurologic Surgery: No Hx Cataract Extraction: No Hx Cardiac Surgery: No Hx Lung Surgery: No Hx Breast Surgery: No Hx Breast Biopsy: No Hx Abdominal Surgery: No Hx Appendectomy: Yes (In 1999) Hx Cholecystectomy: No Hx Genitourinary Surgery: No Hx Section: No Hx Orthopedic Surgery: No Hx Hysterectomy: No Anesthesia Reaction: No - PPD History Previous Implant?: No Implanted On Prior [facility] Admission?: No Results: CXR(-) 05/13/18 PPD to be Administered?: No - Smoking Cessation Smoking history: Current every day smoker Have you smoked in the past 12 months: Yes Aproximately how many cigarettes per day: 20 Cigars Per Day: 0 Hx Chewing Tobacco Use: No Initiated information on smoking cessation: Yes 'Breaking Loose' booklet given: 02/20/19 - Substances abused Alcohol Substance route: Oral Frequency: Daily Amount used: 1 pint vodka BEER 1-2 X 6PKS ON ALT. DAY Age of first use: 19 Date of last use: 02/19/19 Crack Substance route: Smoking Frequency: 3-6 times per week Amount used: $100 Age of first use: 19 Date of last use: 02/19/19 Cocaine Substance route: Inhalation Frequency: 3-6 times per week Amount used: over 200 dollars Age of first use: Date of last use: 08/24/18 Other Other (specify): Cocaine Substance route: Smoking Frequency: 3-6 times per week Amount used: $100 Age of first use: Date of last use: 02/19/19 Admission Physical Exam BHS - Vital Signs Vital Signs: Vital Signs - 24 hr 02/20/19 11:11 Temperature 98.2 F Pulse Rate 64 Respiratory 16 Rate Blood Pressure 92/57 L - Physical General Appearance: Yes: No Apparent Distress HEENTM: Yes: Normal ENT Inspection, Normocephalic, Normal Voice, Pharynx Normal , Tm's normal Respiratory: Yes: Chest Non-Tender, Lungs Clear, No Respiratory Distress, No Accessory Muscle Use Neck: Yes: No masses,lesions,Nodules, Supple Breast: Yes: Breast Exam Deferred Cardiology: Yes: Regular Rhythm, Regular Rate, S1, S2 Abdominal: Yes: Normal Bowel Sounds, Non Tender, Soft Genitourinary: Yes: Within Normal Limits Back: Yes: Normal Inspection Musculoskeletal: Yes: full range of Motion, Gait Steady, Pelvis Stable, Back pain Extremities: Yes: Tremors, Other (RLE swelling) 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: Yes: associate professor of philosophy II-XII NML intact, Fully Oriented, Alert, Normal Mood/ Affect, Normal Response Integumentary: Yes: Erythema (mildly to the RLE), Pitting Edema (to RLE) Lymphatic: Yes: Within Normal Limits - Diagnostic (1) Alcohol dependence with uncomplicated withdrawal Current Visit: Yes Status: Acute (2) Cocaine dependence Current Visit: Yes Status: Acute Qualifiers: Substance use status: uncomplicated Qualified Code(s): F14.20 - Cocaine dependence, uncomplicated (3) Hepatitis C Current Visit: No Status: Chronic Qualifiers: Viral hepatitis chronicity: chronic Hepatic coma status: without hepatic coma Qualified Code(s): B18.2 - Chronic viral hepatitis C Comment: newly diagnosed - not treated (4) Nicotine dependence Current Visit: No Status: Acute Qualifiers: Nicotine product type: cigarettes Substance use status: uncomplicated Qualified Code(s): F17.210 - Nicotine dependence, cigarettes, uncomplicated (5) Cellulitis Current Visit: No Status: Acute Qualifiers: Site of cellulitis: extremity Site of cellulitis of extremity: lower extremity Laterality: right Qualified Code(s): L03.115 - Cellulitis of right lower limb Cleared for Admission S - Detox or Rehab [facility] Level of Care: Medically Managed Detox Regimen/Protocol: Librium Breathalyzer - Breathalyzer Breathalyzer: 0 POC Urine test - Test device test lot number: not applicable Urine Drug Screen - Test Device Lot number: [id number] Expiration date: 10/16/20 - Control Is test valid?: Yes - Results Drug screen NEGATIVE: No Urine drug screen results: MARITA-Cocaine Inpatient Rehab Admission - Rehab Decision to Admit Inpatient rehab admission?: No
[2019-02-20] MEDS ORDERED: ACETAMINOPHEN 325 MG TABLET (FP) PO PRN (16:12)
[2019-02-20] MEDS ORDERED: IBUPROFEN 400 MG TABLET (FP) PO PRN (16:12)
[2019-02-20] MEDS ORDERED: chlordiazePOXIDE HCL 25 MG CAPSULE PO ONE (16:12)
[2019-02-20] MEDS ORDERED: chlordiazePOXIDE HCL 10 MG CAPSULE PO PRN (16:12)
[2019-02-20] MEDS ORDERED: BISMUTH SUBSALICYLATE 524 MG/30 ML UD PO PRN (16:12)
[2019-02-20] MEDS ORDERED: MAGNESIUM CITRATE 300 ML BOTTLE PO PRN (16:12)
[2019-02-20] MEDS ORDERED: hydrOXYzine PAMOATE 25 MG CAPSULE (FP) PO PRN (16:12)
[2019-02-20] MEDS ORDERED: MAGNESIUM HYDROX 2400MG/30ML ORAL SUSPENSION 30 ML CUP PO PRN (16:12)
[2019-02-20] MEDS ORDERED: MENTHOL/PHENOL 1 EACH UD MM PRN (16:12)
[2019-02-20] MEDS ORDERED: MELATONIN 5 MG TABLETS PO PRN (16:12)
[2019-02-20] MEDS ORDERED: METHOCARBAMOL 500 MG TABLET PO PRN (16:12)
[2019-02-20] MEDS ORDERED: NICOTINE POLACRILEX 2 MG GUM BUC PRN (16:12)
[2019-02-20] MEDS ORDERED: MAG HYDROX/AL HYDROX/SIMETH 30 ML UNIT-DOSE CUP PO PRN (16:12)
[2019-02-20] MEDS: NICOTINE 14 MG/24 HOURS TOPICAL PATCH TD SCH (17:51)
[2019-02-20] MEDS: chlordiazePOXIDE HCL 25 MG CAPSULE PO SCH (22:07)
[2019-02-20] MEDS: THIAMINE HCL 100 MG TABLET (FP) PO SCH (22:07)
[2019-02-20] MEDS: CEPHALEXIN MONOHYDRATE 500 MG CAPSULE (UD) PO SCH (22:07)
[2019-02-21] MEDS: chlordiazePOXIDE HCL 25 MG CAPSULE PO SCH ×3 (06:08→22:02)
--- NOTE | 2019-02-21 09:35 | CONSULT ---
[facility] Psychiatric Consult - Data Date of interview: 02/21/19 Admission source: Self-referred Identifying data: Mr Reyes is a 54 years old single male, unemployed receving public assistance, living in a drop-in center seeking detox treatment for alcohol and cocaine Substance Abuse History: Reports history of alcohol and crack cocaine use. Refer to addiction counselor's summary for further information Medical History: Significant for hepatitis C, sicke cell anemia, PPD+, and history of treatment for syphilis and surgery for appendectomy in 1999. Smokes cigarettes 1 ppd Psychiatric History: Patient is well known to sign writer letterer or painter from previous encounters during multiple admissions in this facility. Most recent encounter was on . Historical narrative remains consistent. He reports that his first psychiatric contact was in 2013 when he saw a psychiatrist at [facility] in the [place]. Reports that he was diagnosed with MDD, Anxiety and PTSD and started on medications. Reports that he has been receiving outpatient treatment at the same clinic since and he is currently prescribed Zoloft 100 mg/ day, Seroquel 400 mg/hs and Klonopin 2 mg/day. Told sign writer letterer or painter that eventhough he is adherent to OPD care(next appointment 12/21/18) he however does not take medications faithfully due to his addiction. When he saw sign writer letterer or painter on 12/30/18 he declined resuming his psychotropic medications because he does not want to take them with detox medication. Claims after discharge on 12/10/18, he saw his psychiatrist at [facility] and he was prescribed medications. Denies previous psychiatric hospitalization. However, reports 2 previous suicidal attempts via overdose and most recently with a gun years ago. Claims he did not seek medical attention for the latter but sought for the former denying that it was intentional. At present, denies feeling anxious and reports sleeping well. Patient is again unwilling to continue taking his psychotropic medication while taking medications or detox Physical/Sexual Abuse/Trauma History: Denies history of emotional, physical or sexual abuse as well as DV relatiomship. No service Additional Comment: Denies legal Mental Status Exam - Mental Status Exam Alert and Oriented to: Time, Place, Person Cognitive Function: Fair Patient Appearance: Disheveled Mood: Anxious Affect: Appropriate Patient Behavior: Cooperative Speech Pattern: Clear Voice Loudness: Normal Thought Process: Intact Hallucinations: Denies Suicidal Ideation: Denies Homicidal Ideation: Denies Insight/Judgement: Poor Sleep: Poorly Appetite: Good Muscle strength/Tone: Normal Gait/Station: Normal Psychiatric Findings - Problem List ([place] 1, 2,3) (1) PTSD (post-traumatic stress disorder) Current Visit: No Status: Chronic (2) Depressive disorder Current Visit: No Status: Chronic Comment: By history. (3) Depressive disorder Current Visit: No Status: Chronic (4) MDD (major depressive disorder) Current Visit: No Status: Ruled-out (5) Alcohol dependence with uncomplicated withdrawal Current Visit: Yes Status: Acute (6) Cocaine dependence Current Visit: Yes Status: Acute Qualifiers: Substance use status: uncomplicated Qualified Code(s): F14.20 - Cocaine dependence, uncomplicated (7) Nicotine dependence Current Visit: No Status: Chronic Qualifiers: Nicotine product type: cigarettes Substance use status: uncomplicated Qualified Code(s): F17.210 - Nicotine dependence, cigarettes, uncomplicated (8) Positive PPD Current Visit: No Status: Chronic Comment: Last CXR 05/13/18 - Neg (9) Sickle cell disease Current Visit: No Status: Chronic Qualifiers: Sickle-cell associated disorders: with unspecified crisis Qualified Code(s) : D57.00 - Hb-SS disease with crisis, unspecified; D57.0 - Hb-SS disease with crisis (10) History of syphilis Current Visit: No Status: Resolved Comment: treated in past (11) S/P appendectomy Current Visit: No Status: Resolved (12) Hepatitis C Current Visit: No Status: Chronic Qualifiers: Viral hepatitis chronicity: chronic Hepatic coma status: without hepatic coma Qualified Code(s): B18.2 - Chronic viral hepatitis C Comment: newly diagnosed - not treated - Initial Treatment Plan Initial Treatment Plan: Continue inpatient etoxification
--- NOTE | 2019-02-21 09:59 | PN ---
BHS CIWA - CIWA Score Nausea/Vomitin-Mild Nausea/No Vomiting Muscle Tremors: 3 Anxiety: 3 Agitation: 3 Paroxysmal Sweats: 2 Orientation: 1-Uncertain about Date Tacttile Disturbances: 1-Very Mild Itch/Numbness Auditory Disturbances: 1-Very Mild Visual Disturbances: 0-None Headache: 2-Mild CIWA-Ar Total Score: 17 BHS Progress Note (SOAP) Subjective: doing well with librium detox regimen ate breakfast resting on bed right lower extremity erythema + edema encourage leg elevation continue keflex Objective: 02/21/19 09:59 Vital Signs Temperature 98.1 F 02/21/19 09:04 Pulse Rate 67 02/21/19 09:04 Respiratory Rate 18 02/21/19 09:04 Blood Pressure 97/60 02/21/19 09:04 O2 Sat by Pulse Oximetry (%) 02/21/19 10:00 lab see 02/20/19 ER report Assessment: 02/21/19 10:00 alcohol withdrawal sx Plan: continue librium detox regimen
[2019-02-21] MEDS: CEPHALEXIN MONOHYDRATE 500 MG CAPSULE (UD) PO SCH ×2 (10:30→22:02)
[2019-02-21] MEDS: PRENATAL VITAMINS W/ FOLIC ACID TABLET (FP) PO SCH (10:30)
[2019-02-21] MEDS: NICOTINE 14 MG/24 HOURS TOPICAL PATCH TD SCH (10:31)
[2019-02-21] MEDS: ACETAMINOPHEN 325 MG TABLET (FP) PO PRN (17:52)
[2019-02-21] MEDS: THIAMINE HCL 100 MG TABLET (FP) PO SCH (22:02)
[2019-02-22] MEDS: chlordiazePOXIDE 5 MG CAPSULE PO SCH ×3 (06:57→21:12)
[2019-02-22] MEDS: CEPHALEXIN MONOHYDRATE 500 MG CAPSULE (UD) PO SCH ×2 (10:06→21:12)
[2019-02-22] MEDS: PRENATAL VITAMINS W/ FOLIC ACID TABLET (FP) PO SCH (10:06)
[2019-02-22] MEDS: NICOTINE 14 MG/24 HOURS TOPICAL PATCH TD SCH (10:06)
--- NOTE | 2019-02-22 14:43 | PN ---
S CIWA - CIWA Score Nausea/Vomitin-No Nausea/No Vomiting Muscle Tremors: 3 Anxiety: 3 Agitation: 1-Slight > Activity Paroxysmal Sweats: 3 Orientation: 0-Oriented Tacttile Disturbances: 2-Mild Itch/Numbness/Burn Auditory Disturbances: 0-None Visual Disturbances: 1-Very Mild Sensitivity Headache: 0-None Present CIWA-Ar Total Score: 13 BHS Progress Note (SOAP) Subjective: Anxious, Tremors, Sweating. Objective: PATIENT A & O X 3, OBSERVED AMBULATING ON DETOX UNIT UNASSISTED. IN NO ACUTE DISTRESS. 02/22/19 14:41 Vital Signs Temperature 97.9 F 02/22/19 13:10 Pulse Rate 58 L 02/22/19 13:10 Respiratory Rate 18 02/22/19 13:10 Blood Pressure 99/69 02/22/19 13:10 O2 Sat by Pulse Oximetry (%) RESULTS OF ADMISSION LABS NOTED. 02/22/19 14:42 Assessment: 02/22/19 14:42 WITHDRAWAL SYMPTOMS. Plan: CONTINUE DETOX.
[2019-02-22] MEDS: ACETAMINOPHEN 325 MG TABLET (FP) PO PRN (17:48)
[2019-02-22] MEDS: THIAMINE HCL 100 MG TABLET (FP) PO SCH (21:12)
[2019-02-23] MEDS ORDERED: chlordiazePOXIDE HCL 10 MG CAPSULE PO PRN
[2019-02-23] MEDS: chlordiazePOXIDE HCL 10 MG CAPSULE PO SCH ×3 (07:09→21:49)
[2019-02-23] MEDS: CEPHALEXIN MONOHYDRATE 500 MG CAPSULE (UD) PO SCH ×2 (10:06→21:49)
[2019-02-23] MEDS: NICOTINE 14 MG/24 HOURS TOPICAL PATCH TD SCH (10:06)
[2019-02-23] MEDS: PRENATAL VITAMINS W/ FOLIC ACID TABLET (FP) PO SCH (10:06)
--- NOTE | 2019-02-23 14:31 | PN ---
S CIWA - CIWA Score Nausea/Vomitin-No Nausea/No Vomiting Muscle Tremors: None Anxiety: 0-No Anxiety, at Ease Agitation: 2 Paroxysmal Sweats: No Perspiration Orientation: 0-Oriented Tacttile Disturbances: 0-None Auditory Disturbances: 0-None Visual Disturbances: 0-None Headache: 0-None Present CIWA-Ar Total Score: 2 BHS Progress Note (SOAP) Subjective: Patient denies current Withdrawal / Detox symptoms and reports that he feels well overall at this time. Objective: PATIENT A & O X 3, OBSERVED AMBULATING ON DETOX UNIT UNASSISTED. IN NO ACUTE DISTRESS. 02/23/19 14:28 Vital Signs Temperature 98.6 F 02/23/19 13:31 Pulse Rate 61 02/23/19 13:31 Respiratory Rate 18 02/23/19 13:31 Blood Pressure 115/68 02/23/19 13:31 O2 Sat by Pulse Oximetry (%) RESULTS OF DETOX ADMISSION LABS NOTED. LABS NOTED 02/23/19 14:30 Assessment: 02/23/19 14:30 WITHDRAWAL SYMPTOMS. Plan: CONTINUE DETOX. PATIENT SCHEDULED FOR D/C FROM DETOX UNIT TOMORROW.
[2019-02-23] MEDS: THIAMINE HCL 100 MG TABLET (FP) PO SCH (21:48)
[2019-02-23] MEDS: ACETAMINOPHEN 325 MG TABLET (FP) PO PRN (22:22)
[2019-02-24] MEDS ORDERED: chlordiazePOXIDE HCL 10 MG CAPSULE PO ONE (05:00)
[2019-02-24 06:07] VITALS: BP 92/61; PULSE 55; TEMP 97.3
--- NOTE | 2019-02-24 08:36 | DS ---
[facility] Detox Discharge Summary Admission Date: 02/20/19 Discharge Date: 02/24/19 - History Present History: Alcohol Dependence, Cocaine Dependence Additional Comments: Patient medically stable, successfully completed inpatient detox. Patient refused referral to rehabilitation. Follow up with out patient programs. Follow up with PCP at [facility] within a week. If worsenign symptoms are present patient seek medical attention. Pertinent Past History: cellulitis of lower extremities on keflex PO - Physical Exam Results Vital Signs: Vital Signs Temperature 97.3 F L 02/24/19 06:06 Pulse Rate 55 L 02/24/19 06:06 Respiratory Rate 16 02/24/19 06:06 Blood Pressure 92/61 02/24/19 06:06 O2 Sat by Pulse Oximetry (%) Pertinent Admission Physical Exam Findings: Aox3 no acute distress EENT WNL No adventitious breath sounds full ROM, no gait disturbance - Treatment Hospital Course: Detox Protocol Followed, Detoxed Safely, Responded well, Discharged Condition Good Patient has Accepted a Rehab Referral to: Follow up with aftercare - Medication Discharge Medications: Ambulatory Orders Quetiapine Fumarate [Seroquel -] 400 mg PO HS 08/03/18 Sertraline HCl [Zoloft] 100 mg PO DAILY 08/03/18 Cephalexin [Keflex] 500 mg PO BID 7 Days #14 capsule 02/23/19 Cephalexin Monohydrate [Keflex -] 500 mg PO BID 6 Days #12 capsule 02/24/19 - Diagnosis (1) Alcohol dependence with uncomplicated withdrawal Status: Acute (2) Cellulitis Status: Acute Qualifiers: Site of cellulitis: extremity Site of cellulitis of extremity: lower extremity Laterality: right Qualified Code(s): L03.115 - Cellulitis of right lower limb (3) Cocaine dependence Status: Acute Qualifiers: Substance use status: uncomplicated Qualified Code(s): F14.20 - Cocaine dependence, uncomplicated (4) Cocaine dependence Status: Chronic Qualifiers: Substance use status: uncomplicated Qualified Code(s): F14.20 - Cocaine dependence, uncomplicated (5) Hepatitis C Status: Chronic Qualifiers: Viral hepatitis chronicity: chronic Hepatic coma status: without hepatic coma Qualified Code(s): B18.2 - Chronic viral hepatitis C (6) Hypotension Status: Chronic (7) Nicotine dependence Status: Chronic Qualifiers: Nicotine product type: cigarettes Substance use status: uncomplicated Qualified Code(s): F17.210 - Nicotine dependence, cigarettes, uncomplicated - AMA Did Patient Leave Against Medical Advice: No
== END 2019-02-24 08:34 | disposition home or self-care (01) | DRG 774 ==
LOC: YASAS 10:22 → Y3N 16:12
PROVIDERS: ADMIT Allergy & Immunology; ATTEND Allergy & Immunology
PROC: HZ2ZZZZ Detoxification Services for Substance Abuse Treatment (ICD-10-PCS; principal; 2019-02-20)
DX: F10.230 Alcohol dependence with withdrawal, uncomplicated (principal); F14.20 Cocaine dependence, uncomplicated; F17.210 Nicotine dependence, cigarettes, uncomplicated; F43.10 Post-traumatic stress disorder, unspecified; F32.9 Major depressive disorder, single episode, unspecified; I95.9 Hypotension, unspecified; B18.2 Chronic viral hepatitis C; L03.115 Cellulitis of right lower limb; R76.11 Nonspecific reaction to tuberculin skin test without active tuberculosis; D57.1 Sickle-cell disease without crisis; Z87.438 Personal history of other diseases of male genital organs

== ENCOUNTER 2019-02-20 12:37 | Emergency (ER) | payer OTHER ==
--- NOTE | 2019-02-20 12:59 | PDOC ---
History of Present Illness - General Stated Complaint: RT LEG SWELLING - History of Present Illness Initial Comments: The pt is a 54M w/ a history of EtOH and cocaine use who presents from [facility] for evaluation of 3 weeks of RLE swelling and redness. The pt reports he recently been staying at a place where he has to sleep in a chair and has not been able to elevated his legs. He notes he's had this happen before in similar situations. He denies leg pain, sensation changes, fevers/chills, trouble breathing, chest pain, travel, history of blood clots, or cancer history. Pt endorses smoking 1ppd. Last cocaine use was yesterday. 02/20/19 13:17 Past History - Past Medical History Allergies/Adverse Reactions: Allergies Allergy/AdvReac Type Severity Reaction Status Date / Time No Known Allergies Allergy Verified 02/20/19 13:12 Home Medications: Ambulatory Orders Quetiapine Fumarate [Seroquel -] 400 mg PO HS 08/03/18 Sertraline HCl [Zoloft] 100 mg PO DAILY 08/03/18 Anemia: No Asthma: No Cancer: No Cardiac Disorders: No CVA: No COPD: No CHF: No Dementia: No Diabetes: No GI Disorders: No Disorders: No HTN: No Hypercholesterolemia: No Kidney Stones: No Liver Disease: No Seizures: No Thyroid Disease: No - Surgical History Abdominal Surgery: No Appendectomy: Yes (In 1999) Cardiac Surgery: No Cholecystectomy: No Lung Surgery: No Neurologic Surgery: No Orthopedic Surgery: No - Reproductive History Testicular Surgery: No - Psycho Social/Smoking Cessation Hx Smoking History: Current every day smoker Have you smoked in the past 12 months: Yes Number of Cigarettes Smoked Daily: 20 Cigars Per Day: 0 'Breaking Loose' booklet given: 02/20/19 Hx Alcohol Use: Yes Drug/Substance Use Hx: Yes Substance Use Type: Alcohol, Cocaine Hx Substance Use Treatment: Yes (detox, rehab) Review of Systems - Review of Systems Able to Perform ROS?: Yes Comments:: GENERAL/CONSTITUTIONAL: No fever or chills. No weakness HEAD, EYES, EARS, NOSE AND THROAT: No change in vision. No change in hearing. No sore throat CARDIOVASCULAR: No chest pain or shortness of breath RESPIRATORY: Denies cough, hemoptysis GASTROINTESTINAL: No nausea, vomiting, diarrhea or constipation GENITOURINARY: No dysuria, frequency, or change in urination MUSCULOSKELETAL: RLE distal swelling. No neck or back pain SKIN: mild RLE redness NEUROLOGIC: No headache, vertigo, loss of consciousness, or change in strength/ sensation ENDOCRINE: No increased thirst. No abnormal weight change HEMATOLOGIC/LYMPHATIC: No anemia, easy bleeding, or history of blood clots ALLERGIC/IMMUNOLOGIC: No hives or skin allergy 02/20/19 12:58 Is the patient limited Setswana proficient: No *Physical Exam - Vital Signs Vital Signs Period Temp Pulse Resp BP Sys/Patel Pulse Ox Last 24 Hr 97.4 F 57 16 103/68 100 02/20/19 13:19 - Physical Exam Comments: GENERAL: Awake, alert, and oriented to person/place/time, in no acute distress HEAD: No signs of trauma, normocephalic, atraumatic EYES: PERRLA, EOMI, sclera anicteric, conjunctiva clear ENT: Hearing grossly normal, nares patent, oropharynx clear without exudates. Moist mucosa LUNGS: No distress, speaks in full sentences, clear to auscultation bilaterally HEART: Regular rate and rhythm, normal S1 and S2, no murmurs appreciated, peripheral pulses normal and equal bilaterally ABDOMEN: Soft, nontender, normoactive bowel sounds. No guarding, no rebound EXTREMITIES: FROM in all 4 extremities; RLE swelling to mid-calf w/o TTP NEUROLOGICAL: Cranial nerves II through XII grossly intact. Normal speech, no focal sensorimotor deficits SKIN: mild RLE distal erythema, remainder of skin warm/dry 02/20/19 12:59 ED Treatment Course - LABORATORY CBC & Chemistry Diagram: 02/20/19 13:30 02/20/19 13:30 Medical Decision Making - Medical Decision Making The pt is a 54M w/ a history of EtOH and cocaine use who presents for evaluation of 3 weeks of RLE swelling Ddx: DVT vs cellulitis ED Course CMP, CBC BLE Duplex 02/20/19 13:21 No anemia No leukocytosis Lytes overall unremarkable BLE US w/o evidence of DVT Pt likely w/ RLE cellulitis -Will give dose of Keflex 500mg PO once here Plan for D/C to [facility] Pt should continue to take Keflex 500mg PO BID for the next 5 days Discharge instructions and return precautions given Pt in agreement and verbalized understanding Dispo: D/C to [facility] 02/20/19 14:57 Discharge - Discharge Information Problems reviewed: Yes Clinical Impression/Diagnosis: Swelling of right lower extremity Cellulitis Qualifiers: Site of cellulitis: extremity Site of cellulitis of extremity: lower extremity Laterality: right Qualified Code(s): L03.115 - Cellulitis of right lower limb Condition: Stable Disposition: HOME - Admission No - Follow up/Referral Referrals: [facility] [place] [facility] [place] [Provider Group] - Patient Discharge Instructions Patient Printed Discharge Instructions: DI for Cellulitis -- Adult Additional Instructions: You were seen in the Emergency Department for evaluation of right leg swelling. Your ultrasound was negative for blood clot. The swelling is likely due to an infection. You were given a dose of Keflex here and should continue to take twice a day for 5 days. Review the handout provided at discharge. Follow up with your primary care provided. Return to the Emergency Department if you develop fevers/chills, worsening redness/swelling, changes in sensation, chest pain, trouble breathing, worsening symptoms, or any new/concerning symptoms. - Post Discharge Activity
[2019-02-20 13:11] VITALS: BMI 18.7
[2019-02-20 13:44] LABS: BASO % 1.1 % (0-2.0); EOS % 2.1 % (0-4.5); HEMATOCRIT 41.4 % (35.4-49); HEMOGLOBIN 14.2 GM/dL (11.7-16.9); MCHC 34.2 g/dl (32.0-35.9); MEAN CELL VOLUME 90.5 fl (80-96); MEAN PLT VOLUME 8.9 fl (7.5-11.1); MONO % 8.2 % (3.8-10.2); NEUT % 66.6 % (42.8-82.8); PLATELET COUNT 241 K/MM3 (134-434); RBC 4.58 M/mm3 (4.00-5.60); RDW 13.2 % (11.9-15.9); WHITE BLOOD COUNT 5.9 K/mm3 (4.0-10.0)
--- NOTE | 2019-02-20 14:07 | PDOC ---
Attending Attestation - Resident Resident Name: ShaunJose - ED Attending Attestation I have performed the following: I have examined & evaluated the patient, The case was reviewed & discussed with the resident, I agree w/resident's findings & plan, Exceptions are as noted - HPI HPI: 02/20/19 17:09 Mr Reyes is a 54-year-old male with a history of alcohol and cocaine abuse who was sent from [facility] due to lower extremity edema. Patient states he currently sleeps in a drop-in center in [facility], where he sleeps with his legs down in a chair. Since that time he is noticed lower extremity edema. He intermittently has swelling of alternating legs He denies trauma to his leg He denies pain. He denies fevers or chills. He denies travel, history of DVT. - Physicial Exam PE: 02/20/19 17:10 GENERAL: The patient is in no acute distress. ENT: Ears normal, nares patent, oropharynx clear without exudates. Moist mucous membranes. NECK: Normal range of motion, supple LUNGS: Breath sounds equal, clear to auscultation bilaterally. No wheezes, and no crackles. HEART:Regular rate and rhythm, normal S1 and S2 without murmur, rub or gallop. ABDOMEN: Soft, nontender, normoactive bowel sounds. EXTREMITIES: (+) Right lower extremity edema and erythema NEUROLOGICAL: Cranial nerves II through XII grossly intact. Normal speech. No focal neurological deficits. SKIN: Warm, Dry, normal turgor, no rashes or lesions noted. 02/20/19 17:17 - Medical Decision Making 02/20/19 17:10 Laboratory Tests 02/20/19 02/20/19 13:30 13:30 WBC 5.9 Hgb 14.2 Hct 41.4 Plt Count 241 BUN 18.0 Creatinine 1.2 Duplex performed, no DVT Lower extremity appears erythematous and swollen. There is no leukocytosis, no fever or systemic signs of illness, patient can be treated with p.o. antibiotics. Will discharge on Keflex. Recommend leg elevation. Monitor for any change in status. Patient can be returned to the ER for any other concerns or complaints
[2019-02-20 14:08] LABS: ALBUMIN 3.7 g/dl (3.4-5.0); BILIRUBIN,TOTAL 0.5 mg/dL (0.2-1); CREATININE 1.2 mg/dL (0.55-1.3); POTASSIUM 4.1 mmol/L (3.5-5.1); TOT PROT 6.8 g/dl (6.4-8.2)
[2019-02-20] MEDS ORDERED: CEPHALEXIN MONOHYDRATE 500 MG CAPSULE (UD) PO ONE (14:54)
[2019-02-20] MEDS ORDERED: CEPHALEXIN MONOHYDRATE 500 MG CAPSULE (UD) ONE (15:18)
[2019-02-20 15:54] VITALS: BP 116/77; PULSE 73; TEMP 98
== END 2019-02-20 15:54 | disposition home or self-care (01) ==
LOC: JER 12:37
DX: L03.115 Cellulitis of right lower limb (principal); F10.10 Alcohol abuse, uncomplicated; F14.10 Cocaine abuse, uncomplicated; F17.210 Nicotine dependence, cigarettes, uncomplicated
CPT/HCPCS: 36415; 80053; 85025; 93970-TC; 99283-25

== ENCOUNTER 2019-03-25 10:45 | Inpatient (IN) | payer OTHER ==
--- NOTE | 2019-03-25 12:18 | HP ---
CIWA Score Nausea/Vomitin (vomiting this morning) Muscle Tremors: 4-Moderate,w/Arms Extend Anxiety: 1-Mildly Anxious Agitation: 1-Slight > Activity Paroxysmal Sweats: 1-Minimal Palms Moist Orientation: 0-Oriented Tacttile Disturbances: 1-Very Mild Itch/Numbness Auditory Disturbances: 0-None Visual Disturbances: 0-None Headache: 3-Moderate CIWA-Ar Total Score: 16 - Admission Criteria OASAS Guidelines: Admission for Medically Managed Detox: Requires at least one of the followin. CIWA greater than 12 2. Seizures within the past 24 hours 3. Delirium tremens within the past 24 hours 4. Hallucinations within the past 24 hours 5. Acute intervention needed for co occurring medical disorder 6. Acute intervention needed for co occurring psychiatric disorder 7. Severe withdrawal that cannot be handled at a lower level of care (continued vomiting, continued diarrhea, abnormal vital signs) requiring intravenous medication and/or fluids 8. Admitting History and Physical - Admission History Source: Patient Limitations to Obtaining History: No Limitations - Past Medical History [employer]: Yes: Migraine Psych: Yes: Addictions, Anxiety, Depression, Other (PTSD) - Past Surgical History Past Surgical History: Yes: Appendectomy - Smoking History Smoking history: Current every day smoker Have you smoked in the past 12 months: Yes Aproximately how many cigarettes per day: 20 - Alcohol/Substance Use Hx Alcohol Use: Yes History of Substance Use: reports: Cocaine Admission ROS [facility] Allergies/Adverse Reactions: Allergies Allergy/AdvReac Type Severity Reaction Status Date / Time No Known Allergies Allergy Verified 03/25/19 11:09 History of Present Illness: 54 y.o. M PMH syphilis, untreated Hep C, PTSD, depression, anxiety presenting for detox and possible rehab. Completed detox 1 mo ago here. EtOH: Daily use. Few packs beers & 1/2 pint vodka daily. Last drink last night, drank few packs of beers & liquor. Starts drinking in the morning when he wakes up. Started age 19. Has passed out from drinking, has hit head & gone to hospital s/p fall in the past. Has never had a seizure d/t not drinking. Crack: Uses daily. Usually ~$100/ day. Last use last night. Started at age 19 Cocaine: Uses when available. Last used 4-5 days ago. Snorts. Never injected in the past. Cigarettes: smokes 1 pack/ day x 30 years. PSH: appendectomy Social hx: homeless. not currently working. All: NKDA/ NKFA. Meds: zoloft, seroquel Exam Limitations: No Limitations - Ebola screening Have you traveled outside of the country in the last 21 days: No Have you had contact with anyone from an Ebola affected area: No Do you have a fever: No - Review of Systems Constitutional: Diaphoresis, Weakness EENT: reports: No Symptoms Reported Respiratory: reports: No Symptoms reported Cardiac: reports: No Symptoms Reported GI: reports: Diarrhea, Nausea, Vomiting Musculoskeletal: reports: No Symptoms Reported Integumentary: reports: No Symptoms Reported Neuro: reports: Headache Endocrine: reports: No Symptoms Reported Hematology: reports: No Symptoms Reported Psychiatric: reports: Orientated x3, Anxious Patient History - Patient Medical History Hx Anemia: No Hx Asthma: No Hx Chronic Obstructive Pulmonary Disease (COPD): No Hx Cancer: No Hx Cardiac Disorders: No Hx Congestive Heart Failure: No Hx Hypertension: No Hx Hypercholesterolemia: No Hx Pacemaker: No HX Cerebrovascular Accident: No Hx Seizures: No Hx Dementia: No Hx Diabetes: No Hx Gastrointestinal Disorders: No Hx Liver Disease: No Hx Genitourinary Disorders: No Hx Sexually Transmitted Disorders: Yes (syphilis) Hx Renal Disease (ESRD): No Hx Thyroid Disease: No Hx Human Immunodeficiency Virus (HIV): No Hx Hepatitis C: Yes ( not treated) Hx Depression: Yes Hx Suicide Attempt: Yes (remote hx) Hx Bipolar Disorder: No Hx Schizophrenia: No - Patient Surgical History Past Surgical History: Yes Hx Neurologic Surgery: No Hx Cataract Extraction: No Hx Cardiac Surgery: No Hx Lung Surgery: No Hx Breast Surgery: No Hx Breast Biopsy: No Hx Abdominal Surgery: No Hx Appendectomy: Yes (In 1999) Hx Cholecystectomy: No Hx Genitourinary Surgery: No Hx Section: No Hx Orthopedic Surgery: No Hx Hysterectomy: No Anesthesia Reaction: No - PPD History Results: CXR(-) 05/13/18 - Smoking Cessation Smoking history: Current every day smoker Have you smoked in the past 12 months: Yes Aproximately how many cigarettes per day: 20 Cigars Per Day: 0 Hx Chewing Tobacco Use: No - Substance & Tx. History Hx Alcohol Use: Yes Hx Substance Use: Yes Substance Use Type: Cocaine Hx Substance Use Treatment: Yes - Substances abused Alcohol Substance route: Oral Frequency: Daily Amount used: 1/2 -1 pint vodka & 1-2 6pk beers Age of first use: 19 Date of last use: 03/24/19 Crack Substance route: Smoking Frequency: 3-6 times per week Amount used: $100 Age of first use: 19 Date of last use: 03/24/19 Cocaine Substance route: Inhalation Frequency: 3-6 times per week Amount used: "varies " Age of first use: 19 Date of last use: 03/24/19 Other Other (specify): Cocaine Substance route: Smoking Frequency: 3-6 times per week Amount used: $100 Age of first use: 19 Date of last use: 02/19/19 Admission Physical Exam S - Vital Signs Vital Signs: Vital Signs - 24 hr 03/25/19 11:04 Temperature 97.5 F L Pulse Rate 70 Respiratory 18 Rate Blood Pressure 93/57 L - Physical General Appearance: Yes: Other (foul odor) HEENTM: Yes: Within Normal Limits Respiratory: Yes: Lungs Clear, Normal Breath Sounds, No Respiratory Distress, No Accessory Muscle Use Neck: Yes: Within Normal Limits Cardiology: Yes: Regular Rhythm, Regular Rate, S1, S2 Abdominal: Yes: Normal Bowel Sounds, Non Tender, Soft Back: Yes: Normal Inspection Musculoskeletal: Yes: full range of Motion Extremities: Yes: Normal Range of Motion, Pedal Edema 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: Yes: Fully Oriented, Alert, Normal Mood/Affect Integumentary: Yes: Dry, Rash (B/l UE) Lymphatic: Yes: Within Normal Limits (excorations b/l UE) - Diagnostic (1) Alcohol dependence with uncomplicated withdrawal Current Visit: No Status: Chronic (2) Cocaine dependence Current Visit: No Status: Chronic Qualifiers: Substance use status: uncomplicated Qualified Code(s): F14.20 - Cocaine dependence, uncomplicated (3) Anxiety and depression Current Visit: No Status: Chronic (4) Nicotine dependence Current Visit: No Status: Chronic Qualifiers: Nicotine product type: cigarettes Substance use status: uncomplicated Qualified Code(s): F17.210 - Nicotine dependence, cigarettes, uncomplicated Breathalyzer - Breathalyzer Breathalyzer: 0 POC Urine test - Test device test lot number: not applicable Urine Drug Screen - Test Device Lot number: [id number] Expiration date: 11/15/20 - Control Is test valid?: Yes - Results Drug screen NEGATIVE: No Urine drug screen results: MARITA-Cocaine Inpatient Rehab Admission - Rehab Decision to Admit Inpatient rehab admission?: No
[2019-03-25 12:27] VITALS: BMI 22.6
[2019-03-25] MEDS ORDERED: METHOCARBAMOL 500 MG TABLET PO PRN (13:18)
[2019-03-25] MEDS ORDERED: MAG HYDROX/AL HYDROX/SIMETH 30 ML UNIT-DOSE CUP PO PRN (13:18)
[2019-03-25] MEDS ORDERED: MAGNESIUM CITRATE 300 ML BOTTLE PO PRN (13:18)
[2019-03-25] MEDS ORDERED: hydrOXYzine PAMOATE 25 MG CAPSULE (FP) PO PRN (13:18)
[2019-03-25] MEDS ORDERED: MENTHOL/PHENOL 1 EACH UD MM PRN (13:18)
[2019-03-25] MEDS ORDERED: MELATONIN 5 MG TABLETS PO PRN (13:18)
[2019-03-25] MEDS ORDERED: IBUPROFEN 400 MG TABLET (FP) PO PRN (13:18)
[2019-03-25] MEDS ORDERED: BISMUTH SUBSALICYLATE 524 MG/30 ML UD PO PRN (13:18)
[2019-03-25] MEDS ORDERED: NICOTINE POLACRILEX 2 MG GUM BUC PRN (13:18)
[2019-03-25] MEDS ORDERED: MAGNESIUM HYDROX 2400MG/30ML ORAL SUSPENSION 30 ML CUP PO PRN (13:18)
[2019-03-25] MEDS ORDERED: ACETAMINOPHEN 325 MG TABLET (FP) PO PRN ×2 (13:18)
[2019-03-25] MEDS ORDERED: chlordiazePOXIDE HCL 10 MG CAPSULE PO PRN (13:18)
[2019-03-25] MEDS ORDERED: COLLOIDAL OATMEAL 1 BAR EACH TP PRN (13:22)
--- NOTE | 2019-03-25 13:56 | PN ---
Teaching Attending Note Name of Resident: Imani Huntley ATTENDING PHYSICIAN STATEMENT I saw and evaluated the patient. I reviewed the resident's note and discussed the case with the resident. I agree with the resident's findings and plan as documented. SUBJECTIVE: 54 y.o. male here requesting detox from etoh use , reports 2x 6-pk beer daily and 1/2 pint , latest use yesterday, starts drinking in the mornings , + blackouts, denies seizures or tremors. PMH syphilis, untreated Hep C, PTSD, depression, anxiety Cocaine : Crack ~$100/ day. Last use last night. Started at age 19 Cocaine: Uses when available. Last used 4-5 days ago via inhalation, denies IV Cigarettes: smokes 1 pack/ day x 30 years. PSH: appendectomy Social hx: homeless. not currently working. OBJECTIVE: wnwd , R LE >> LLE edema , Doppler US LE 02/20/19 negative, per pt had similar symptoms , reports sleeping in chair at drop-in center . Homans negative. Vital Signs - 24 hr 03/25/19 11:04 Temperature 97.5 F L Pulse Rate 70 Respiratory 18 Rate Blood Pressure 93/57 L ASSESSMENT AND PLAN: AUD - Librium detox Cocaine dependence Nicotine dependence - smoking cessation counseling.
[2019-03-25] MEDS: chlordiazePOXIDE HCL 25 MG CAPSULE PO SCH ×2 (15:05→22:36)
[2019-03-25] MEDS: NICOTINE 14 MG/24 HOURS TOPICAL PATCH TD SCH (15:05)
[2019-03-25] MEDS: THIAMINE HCL 100 MG TABLET (FP) PO SCH (22:35)
[2019-03-26] MEDS ORDERED: chlordiazePOXIDE HCL 10 MG CAPSULE PO SCH (05:00)
[2019-03-26] MEDS: chlordiazePOXIDE HCL 25 MG CAPSULE PO SCH ×3 (06:02→22:35)
--- NOTE | 2019-03-26 09:04 | CONSULT ---
[facility] Psychiatric Consult - Data Date of interview: 03/26/19 Admission source: Self-referred Identifying data: Mr Reyes is a 54 years old single male, unemployed receving public assistance, living in a drop-in center seeking detox treatment for alcohol and cocaine Substance Abuse History: Reports history of alcohol and crack cocaine use. Refer to addiction counselor's summary for further information Medical History: Significant for hepatitis C, sicke cell anemia, PPD+, and history of treatment for syphilis and surgery for appendectomy in 1999. Smokes cigarettes 1 ppd Psychiatric History: Patient is well known to literary writer from previous encounters during multiple admissions in this facility. Most recent encounter was on . Historical narrative remains consistent. He reports that his first psychiatric contact was in 2013 when he saw a psychiatrist at [facility] in the [place]. Reports that he was diagnosed with MDD, Anxiety and PTSD and started on medications. Reports that he has been receiving outpatient treatment at the same clinic since and he is currently prescribed Zoloft 100 mg/ day, Seroquel 400 mg/hs and Klonopin 2 mg/day. Told literary writer that eventhough he is adherent to OPD care, he however does not take medications faithfully due to his addiction. When he saw literary writer on 02/21/19 he declined resuming his psychotropic medications because he does not want to take them with detox medication. Claims after discharge on 02/24/19, he saw his psychiatrist at [facility] and he was prescribed medications. Denies previous psychiatric hospitalization. However, reports 2 previous suicidal attempts via overdose and most recently with a gun years ago. Claims he did not seek medical attention for the latter but sought for the former denying that it was intentional. At present, denies feeling anxious and reports sleeping well. Patient once more is still unwilling to continue taking his psychotropic medications while taking medications or detox Physical/Sexual Abuse/Trauma History: Denies history of emotional, physical or sexual abuse as well as DV relatiomship. No service Mental Status Exam - Mental Status Exam Alert and Oriented to: Time, Place, Person Cognitive Function: Fair Patient Appearance: Disheveled Mood: Depressed Affect: Appropriate Patient Behavior: Cooperative Speech Pattern: Clear Voice Loudness: Normal Thought Process: Intact, Goal Oriented Hallucinations: Denies Suicidal Ideation: Denies Homicidal Ideation: Denies Insight/Judgement: Poor Sleep: Poorly Appetite: Fair Muscle strength/Tone: Normal Psychiatric Findings - Problem List ([place] 1, 2,3) (1) PTSD (post-traumatic stress disorder) Current Visit: No Status: Chronic (2) Depressive disorder Current Visit: No Status: Chronic Comment: By history. (3) MDD (major depressive disorder) Current Visit: No Status: Ruled-out (4) Substance induced mood disorder Current Visit: Yes Status: Acute (5) Substance-induced sleep disorder Current Visit: No Status: Acute (6) Alcohol dependence with uncomplicated withdrawal Current Visit: No Status: Acute (7) Cocaine dependence Current Visit: No Status: Acute Qualifiers: Substance use status: uncomplicated Qualified Code(s): F14.20 - Cocaine dependence, uncomplicated (8) Nicotine dependence Current Visit: No Status: Chronic Qualifiers: Nicotine product type: cigarettes Substance use status: uncomplicated Qualified Code(s): F17.210 - Nicotine dependence, cigarettes, uncomplicated (9) Hepatitis C Current Visit: No Status: Chronic Qualifiers: Viral hepatitis chronicity: chronic Hepatic coma status: without hepatic coma Qualified Code(s): B18.2 - Chronic viral hepatitis C Comment: newly diagnosed - not treated (10) Positive PPD Current Visit: No Status: Chronic Comment: Last CXR 05/13/18 - Neg (11) History of syphilis Current Visit: No Status: Resolved Comment: treated in past (12) S/P appendectomy Current Visit: No Status: Resolved - Initial Treatment Plan Initial Treatment Plan: [facility] inpatient detoxification
[2019-03-26 10:05] LABS: HEMOGLOBIN 13.6 GM/dL (11.7-16.9); MCH 30.5 pg (25.7-33.7); MEAN CELL VOLUME 89.7 fl (80-96); MEAN PLT VOLUME 9.2 fl (7.5-11.1); PLATELET COUNT 274 K/MM3 (134-434); RBC 4.46 M/mm3 (4.00-5.60); RDW 12.9 % (11.9-15.9); WHITE BLOOD COUNT 6.3 K/mm3 (4.0-10.0)
[2019-03-26 10:09] LABS: ALBUMIN 3.1 g/dl (3.4-5.0); BILIRUBIN,TOTAL 0.5 mg/dL (0.2-1); BLOOD UREA NITROGEN 13.6 mg/dL (7-18); CALCIUM 8.4 mg/dL (8.5-10.1); POTASSIUM 4.5 mmol/L (3.5-5.1); TOT PROT 5.8 g/dl (6.4-8.2)
[2019-03-26] MEDS: NICOTINE 14 MG/24 HOURS TOPICAL PATCH TD SCH (10:48)
[2019-03-26] MEDS: PRENATAL VITAMINS W/ FOLIC ACID TABLET (FP) PO SCH (10:48)
--- NOTE | 2019-03-26 13:49 | PN ---
[facility] CIWA - CIWA Score Nausea/Vomitin-No Nausea/No Vomiting Muscle Tremors: 3 Anxiety: 3 Agitation: 3 Paroxysmal Sweats: 2 Orientation: 0-Oriented Tacttile Disturbances: 0-None Auditory Disturbances: 0-None Visual Disturbances: 0-None Headache: 0-None Present CIWA-Ar Total Score: 11 S Progress Note (SOAP) Subjective: sweats body aches interrupted sleep agitation Objective: 03/26/19 13:48 Vital Signs Temperature 98.2 F 03/26/19 13:47 Pulse Rate 66 03/26/19 13:47 Respiratory Rate 18 03/26/19 13:47 Blood Pressure 104/61 03/26/19 13:47 O2 Sat by Pulse Oximetry (%) Laboratory Tests 03/26/19 03/26/19 08:00 08:00 WBC 6.3 RBC 4.46 Hgb 13.6 Hct 40.0 MCV 89.7 MCH 30.5 MCHC 34.0 RDW 12.9 Plt Count 274 MPV 9.2 Sodium 142 Potassium 4.5 Chloride 110 H Carbon Dioxide 31 Anion Gap 1 L BUN 13.6 Creatinine 1.0 Est GFR (CKD-EPI)AfAm 98.46 Est GFR (CKD-EPI)NonAf 84.95 Random Glucose 86 Calcium 8.4 L Total Bilirubin 0.5 AST 15 ALT 16 Alkaline Phosphatase 69 Total Protein 5.8 L Albumin 3.1 L labs noted aaox3 ambulating no acute distress Assessment: 03/26/19 13:48 withdrawal sx Plan: continue detox increase fluids
[2019-03-26] MEDS: THIAMINE HCL 100 MG TABLET (FP) PO SCH (22:34)
[2019-03-27] MEDS ORDERED: chlordiazePOXIDE HCL 10 MG CAPSULE PO ONE (05:00)
[2019-03-27] MEDS: chlordiazePOXIDE HCL 10 MG CAPSULE PO SCH ×3 (05:46→22:08)
[2019-03-27] MEDS: PRENATAL VITAMINS W/ FOLIC ACID TABLET (FP) PO SCH (10:26)
[2019-03-27] MEDS: NICOTINE 14 MG/24 HOURS TOPICAL PATCH TD SCH (10:26)
--- NOTE | 2019-03-27 12:32 | PN ---
S CIWA - CIWA Score Nausea/Vomitin-No Nausea/No Vomiting Muscle Tremors: 2 Anxiety: 1-Mildly Anxious Agitation: 0-Normal Activity Paroxysmal Sweats: No Perspiration Orientation: 0-Oriented Tacttile Disturbances: 0-None Auditory Disturbances: 0-None Visual Disturbances: 0-None Headache: 0-None Present CIWA-Ar Total Score: 3 BHS Progress Note (SOAP) Subjective: feeling better little anxiety Objective: 03/27/19 12:31 Vital Signs Temperature 97.7 F 03/27/19 05:57 Pulse Rate 57 L 03/27/19 05:57 Respiratory Rate 16 03/27/19 05:57 Blood Pressure 98/62 03/27/19 05:57 O2 Sat by Pulse Oximetry (%) Laboratory Tests 03/26/19 03/26/19 08:00 08:00 WBC 6.3 RBC 4.46 Hgb 13.6 Hct 40.0 MCV 89.7 MCH 30.5 MCHC 34.0 RDW 12.9 Plt Count 274 MPV 9.2 Sodium 142 Potassium 4.5 Chloride 110 H Carbon Dioxide 31 Anion Gap 1 L BUN 13.6 Creatinine 1.0 Est GFR (CKD-EPI)AfAm 98.46 Est GFR (CKD-EPI)NonAf 84.95 Random Glucose 86 Calcium 8.4 L Total Bilirubin 0.5 AST 15 ALT 16 Alkaline Phosphatase 69 Total Protein 5.8 L Albumin 3.1 L aaox3 ambulating no acute distress Assessment: 03/27/19 12:32 mild withdrawals sx Plan: continue detox increase fluids d/c in am
[2019-03-27] MEDS: THIAMINE HCL 100 MG TABLET (FP) PO SCH (22:07)
[2019-03-28] MEDS ORDERED: chlordiazePOXIDE HCL 10 MG CAPSULE PO PRN
[2019-03-28] MEDS ORDERED: chlordiazePOXIDE HCL 10 MG CAPSULE PO ONE (05:00)
[2019-03-28 09:48] VITALS: BP 115/67; PULSE 75; TEMP 98.4
--- NOTE | 2019-03-28 18:12 | DS ---
[facility] Detox Discharge Summary Admission Date: 03/25/19 Discharge Date: 03/28/19 - History Present History: Alcohol Dependence, Cocaine Dependence Additional Comments: Pt completed detox successfully and discharged safely. Pt instructed to follow up with PCP within one week. Pertinent Past History: Hepatitis C - Physical Exam Results Vital Signs: Vital Signs Temperature 98.4 F 03/28/19 09:48 Pulse Rate 75 03/28/19 09:48 Respiratory Rate 18 03/28/19 09:48 Blood Pressure 115/67 03/28/19 09:48 O2 Sat by Pulse Oximetry (%) Pertinent Admission Physical Exam Findings: Withdrawal sxs Laboratory Tests 03/26/19 03/26/19 08:00 08:00 WBC 6.3 RBC 4.46 Hgb 13.6 Hct 40.0 MCV 89.7 MCH 30.5 MCHC 34.0 RDW 12.9 Plt Count 274 MPV 9.2 Sodium 142 Potassium 4.5 Chloride 110 H Carbon Dioxide 31 Anion Gap 1 L BUN 13.6 Creatinine 1.0 Est GFR (CKD-EPI)AfAm 98.46 Est GFR (CKD-EPI)NonAf 84.95 Random Glucose 86 Calcium 8.4 L Total Bilirubin 0.5 AST 15 ALT 16 Alkaline Phosphatase 69 Total Protein 5.8 L Albumin 3.1 L Labs reviewed - Treatment Hospital Course: Detox Protocol Followed, Detoxed Safely, Responded well, Discharged Condition Good - Medication Discharge Medications: Ambulatory Orders Quetiapine Fumarate [Seroquel -] 400 mg PO HS 08/03/18 Sertraline HCl [Zoloft] 100 mg PO DAILY 08/03/18 - Diagnosis (1) Alcohol dependence with uncomplicated withdrawal Status: Chronic (2) Cocaine dependence Status: Chronic Qualifiers: Substance use status: uncomplicated Qualified Code(s): F14.20 - Cocaine dependence, uncomplicated (3) Anxiety and depression Status: Chronic (4) Hepatitis C Status: Chronic Qualifiers: Viral hepatitis chronicity: chronic Hepatic coma status: without hepatic coma Qualified Code(s): B18.2 - Chronic viral hepatitis C (5) History of posttraumatic stress disorder (PTSD) Status: Chronic (6) Nicotine dependence Status: Chronic Qualifiers: Nicotine product type: cigarettes Substance use status: uncomplicated Qualified Code(s): F17.210 - Nicotine dependence, cigarettes, uncomplicated - AMA Did Patient Leave Against Medical Advice: No (Follow up with PCP within one week )
== END 2019-03-28 09:10 | disposition home or self-care (01) | DRG 774 ==
LOC: YASAS 10:45 → Y6N 13:34
PROVIDERS: ADMIT Allergy & Immunology; ATTEND Allergy & Immunology
PROC: HZ2ZZZZ Detoxification Services for Substance Abuse Treatment (ICD-10-PCS; principal; 2019-03-25)
DX: F10.230 Alcohol dependence with withdrawal, uncomplicated (principal); F14.20 Cocaine dependence, uncomplicated; F17.210 Nicotine dependence, cigarettes, uncomplicated; F19.282 Other psychoactive substance dependence with psychoactive substance-induced sleep disorder; F19.24 Other psychoactive substance dependence with psychoactive substance-induced mood disorder; F41.8 Other specified anxiety disorders; F32.9 Major depressive disorder, single episode, unspecified; F43.10 Post-traumatic stress disorder, unspecified; B18.2 Chronic viral hepatitis C; D57.1 Sickle-cell disease without crisis; R76.11 Nonspecific reaction to tuberculin skin test without active tuberculosis; Z86.19 Personal history of other infectious and parasitic diseases; Z91.5 Personal history of self-harm
CPT/HCPCS: 36415; 80053; 85027

== ENCOUNTER 2019-05-14 13:15 | Inpatient (IN) | payer OTHER ==
[2019-05-14 13:28] VITALS: BMI 21.6
--- NOTE | 2019-05-14 14:37 | HP ---
CIWA Score Nausea/Vomitin Muscle Tremors: 1-None Visible, but [place] Anxiety: 4-Mod. Anxious/Guarded Agitation: 0-Normal Activity Paroxysmal Sweats: No Perspiration Orientation: 1-Uncertain about Date Tacttile Disturbances: 2-Mild Itch/Numbness/Burn Auditory Disturbances: 0-None Visual Disturbances: 0-None Headache: 4-Moderately Severe CIWA-Ar Total Score: 17 - Admission Criteria OASAS Guidelines: Admission for Medically Managed Detox: Requires at least one of the followin. CIWA greater than 12 2. Seizures within the past 24 hours 3. Delirium tremens within the past 24 hours 4. Hallucinations within the past 24 hours 5. Acute intervention needed for co occurring medical disorder 6. Acute intervention needed for co occurring psychiatric disorder 7. Severe withdrawal that cannot be handled at a lower level of care (continued vomiting, continued diarrhea, abnormal vital signs) requiring intravenous medication and/or fluids 8. Admitting History and Physical - Admission History of Present Illness: 54 yo m w/ PMH Anxiety, depression, PTSD, polysubstance abuse who comes into [facility] for assistance with detox from ETOH and Cocaine. Patient states that he drinkes 1 pint of vodka and 12 beers daily for the past 30 years. his last drink was yesterday. Patient endorses blackouts in the past , but denies ever having seizures from withdrawal. Patient endorses sniffing and smoking cocaine approx $70-90 every other day since he was 19 years old. His last use was last night. The patient smokes 1ppd tobacco and is refusing patches or gun at this time. Patient states that he is on zoloft and seroquel for his psych conditions, but has not taken it in 4 days 2/2 drinking. The patient follows at [facility] for his psychiatric care. He is currently staying in a drop-in center. 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 Allergies/Adverse Reactions: Allergies Allergy/AdvReac Type Severity Reaction Status Date / Time No Known Allergies Allergy Verified 05/14/19 13:23 - Ebola screening Have you traveled outside of the country in the last 21 days: No Have you had contact with anyone from an Ebola affected area: No Do you have a fever: No - Review of Systems Constitutional: Chills Respiratory: reports: No Symptoms reported Cardiac: reports: No Symptoms Reported GI: reports: Vomiting, Abdominal cramping Neuro: reports: Headache, Tingling, Tremors Patient History - Patient Medical History Hx Anemia: No Hx Asthma: No Hx Chronic Obstructive Pulmonary Disease (COPD): No Hx Cancer: No Hx Cardiac Disorders: No Hx Congestive Heart Failure: No Hx Hypertension: No Hx Hypercholesterolemia: No Hx Pacemaker: No HX Cerebrovascular Accident: No Hx Seizures: No Hx Dementia: No Hx Diabetes: No Hx Gastrointestinal Disorders: No Hx Liver Disease: No Hx Genitourinary Disorders: No Hx Sexually Transmitted Disorders: No Hx Renal Disease (ESRD): No Hx Thyroid Disease: No Hx Human Immunodeficiency Virus (HIV): No Hx Hepatitis C: Yes ( not treated) Hx Depression: Yes Hx Suicide Attempt: No Hx Bipolar Disorder: No Hx Schizophrenia: No - Patient Surgical History Past Surgical History: Yes Hx Neurologic Surgery: No Hx Cataract Extraction: No Hx Cardiac Surgery: No Hx Lung Surgery: No Hx Breast Surgery: No Hx Breast Biopsy: No Hx Abdominal Surgery: No Hx Appendectomy: Yes (In 1999) Hx Cholecystectomy: No Hx Genitourinary Surgery: No Hx Section: No Hx Orthopedic Surgery: No Hx Hysterectomy: No Anesthesia Reaction: No - PPD History Results: CXR(-) 05/13/18 - Smoking Cessation Smoking history: Current every day smoker Have you smoked in the past 12 months: Yes Aproximately how many cigarettes per day: 20 Cigars Per Day: 0 Hx Chewing Tobacco Use: No Initiated information on smoking cessation: Yes 'Breaking Loose' booklet given: 05/14/19 - Substances abused Alcohol Substance route: Oral Frequency: Daily Amount used: 1/2 -1 pint vodka & 1-2 6pk beers Age of first use: 19 Date of last use: 05/13/19 Crack Substance route: Smoking Frequency: Daily Amount used: $100 Age of first use: 19 Date of last use: 05/13/19 Cocaine Other (specify): smoke and sniff Substance route: Inhalation Frequency: Daily Amount used: $100 Age of first use: 19 Date of last use: 05/13/19 Other Other (specify): Cocaine Substance route: Smoking Frequency: 3-6 times per week Amount used: $100 Age of first use: 19 Date of last use: 02/19/19 Admission Physical Exam BHS - Vital Signs Vital Signs: Vital Signs - 24 hr 05/14/19 13:22 Temperature 97.1 F L Pulse Rate 77 Respiratory 20 Rate Blood Pressure 99/60 - Physical General Appearance: Yes: Disheveled, Mild Distress HEENTM: Yes: EOMI, Normal ENT Inspection, Normocephalic, [place], Pharynx Normal Respiratory: Yes: Chest Non-Tender, Lungs Clear, Normal Breath Sounds, No Respiratory Distress, No Accessory Muscle Use Neck: Yes: Trachea in good position Cardiology: Yes: Regular Rhythm, Regular Rate, S1, S2. 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 NML intact, Alert, Motor Strength 5/5, Normal Mood /Affect - Diagnostic (1) Alcohol dependence with uncomplicated withdrawal Current Visit: No Status: Chronic (2) Anxiety and depression Current Visit: No Status: Chronic (3) Cocaine dependence Current Visit: No Status: Chronic Qualifiers: Substance use status: uncomplicated Qualified Code(s): F14.20 - Cocaine dependence, uncomplicated (4) Nicotine dependence Current Visit: No Status: Chronic Qualifiers: Nicotine product type: cigarettes Substance use status: uncomplicated Qualified Code(s): F17.210 - Nicotine dependence, cigarettes, uncomplicated (5) PTSD (post-traumatic stress disorder) Current Visit: No Status: Chronic (6) MDD (major depressive disorder) Current Visit: No Status: Ruled-out Breathalyzer - Breathalyzer Breathalyzer: 0.008 POC Urine test - Test device test lot number: not applicable Urine Drug Screen - Test Device Lot number: [id number] Expiration date: 12/15/20 - Control Is test valid?: Yes - Results Drug screen NEGATIVE: No Urine drug screen results: MARITA-Cocaine, MOP-Opiates Inpatient Rehab Admission - Rehab Decision to Admit Inpatient rehab admission?: No
[2019-05-14] MEDS ORDERED: ACETAMINOPHEN 325 MG TABLET (FP) PO PRN ×2 (15:29)
[2019-05-14] MEDS ORDERED: hydrOXYzine PAMOATE 25 MG CAPSULE (FP) PO PRN (15:29)
[2019-05-14] MEDS ORDERED: MAGNESIUM CITRATE 300 ML BOTTLE PO PRN (15:29)
[2019-05-14] MEDS ORDERED: chlordiazePOXIDE HCL 25 MG CAPSULE PO PRN (15:29)
[2019-05-14] MEDS ORDERED: MENTHOL/PHENOL 1 EACH UD MM PRN (15:29)
[2019-05-14] MEDS ORDERED: IBUPROFEN 400 MG TABLET (FP) PO PRN (15:29)
[2019-05-14] MEDS ORDERED: MAG HYDROX/AL HYDROX/SIMETH 30 ML UNIT-DOSE CUP PO PRN (15:29)
[2019-05-14] MEDS ORDERED: MAGNESIUM HYDROX 2400MG/30ML ORAL SUSPENSION 30 ML CUP PO PRN (15:29)
[2019-05-14] MEDS ORDERED: BISMUTH SUBSALICYLATE 262 MG/15 ML BTL PO PRN (15:29)
[2019-05-14] MEDS ORDERED: MELATONIN 5 MG TABLETS PO PRN (15:29)
[2019-05-14] MEDS ORDERED: COLLOIDAL OATMEAL 1 BAR EACH TP PRN (15:39)
--- NOTE | 2019-05-14 15:43 | PN ---
Teaching Attending Note Name of Resident: Cipriano Guerrero ATTENDING PHYSICIAN STATEMENT I saw and evaluated the patient. I reviewed the resident's note and discussed the case with the resident. I agree with the resident's findings and plan as documented. SUBJECTIVE:this 54 years old male with alcohol and cocaine dependence,seeking detox,history of bipolar disorder OBJECTIVE: withdrawal symptom ASSESSMENT AND PLAN: this 54 years old male with alcohol and cocaine dependence,need inpatient detox, medically managed, librium regimen
[2019-05-14] MEDS: chlordiazePOXIDE HCL 25 MG CAPSULE PO SCH ×2 (17:14→22:23)
[2019-05-14] MEDS: THIAMINE HCL 100 MG TABLET (FP) PO SCH (21:54)
[2019-05-15] MEDS: chlordiazePOXIDE HCL 25 MG CAPSULE PO SCH ×4 (07:13→22:05)
--- NOTE | 2019-05-15 10:34 | PN ---
S CIWA - CIWA Score Nausea/Vomitin-No Nausea/No Vomiting Muscle Tremors: 2 Anxiety: 3 Agitation: 1-Slight > Activity Paroxysmal Sweats: 3 Orientation: 0-Oriented Tacttile Disturbances: 1-Very Mild Itch/Numbness Auditory Disturbances: 0-None Visual Disturbances: 0-None Headache: 1-Very Mild CIWA-Ar Total Score: 11 BHS Progress Note (SOAP) Subjective: c/o back pain, headache, sweats, and anxiety. Objective: 05/15/19 10:32 Vital Signs 05/15/19 05/15/19 05/15/19 03:30 06:41 09:01 Temperature 97.7 F 98.1 F Pulse Rate 69 66 Respiratory 18 18 18 Rate Blood Pressure 101/68 90/60 Assessment: 05/15/19 10:32 AOx3, in no acute respiratory distress. Full rom, ambulating in the unit. Withdrawal symptoms. Plan: continue detox.
[2019-05-15] MEDS: PRENATAL VITAMINS W/ FOLIC ACID TABLET (FP) PO SCH (10:39)
--- NOTE | 2019-05-15 11:20 | CONSULT ---
[facility] Psychiatric Consult - Data Date of interview: 05/15/19 Admission source: [facility] Identifying data: Revisit to [facility] and admission to [address] [place] [address] for this 54 y/o male self-referred for detoxification. ANA issues : alcohol, cocaine, nicotine. Patient is single without children, homeless (lives at a drop-in center), unemployed and supported on welfare. Substance Abuse History: Discussed with patient. Details in current [facility] report as follows : Smoking history: Current every day smoker. Have you smoked in the past 12 months: Yes. Aproximately how many cigarettes per day: 20. Cigars Per Day: 0. Hx Chewing Tobacco Use: No. Initiated information on smoking cessation : Yes. 'Breaking Loose' booklet given: 05/14/19. - Substances abused. Alcohol. Substance route: Oral. Frequency: Daily. Amount used: 1/2 -1 pint vodka & 1-2 6pk beers. Age of first use: 19. Date of last use: 05/13/19. Crack. Substance route: Smoking. Frequency: Daily. Amount used: $100. Age of first use: 19. Date of last use: 05/13/19. Cocaine. Other (specify): smoke and sniff. Substance route: Inhalation. Frequency: Daily. Amount used: $100. Age of first use: 19. Date of last use: 05/13/19. Other. Other ( specify): Cocaine. Substance route: Smoking. Frequency: 3-6 times per week. Amount used: $100. Age of first use: 19. Date of last use: 02/19/19 Medical History: Medical profile is remarkable for antecedent of appendectomy ( 1999), past treatment for syphilis and hepatitis C (according to [facility] data). Psychiatric History: Patient denies history of psychiatric hospitalizations. Mr Reyes sees a psychiatrist at [facility] clinic (where he was diagnosed , for the first time in 2013, with MDD + Anxiety Disorder + PTSD) in the [place]. Mr Reyes declares that he has been prescribed sertraline, seroquel and klonopin. " I have stopped taking these medications for some time and I don't want to get back on them in this program." Patient admits to a remote history of a suicide attempt (overdose with medications). Physical/Sexual Abuse/Trauma History: Patient declines to discuss this domain. Additional Comment: Urine drug screen results: MARITA-Cocaine, MOP-Opiates. Noted. Mental Status Exam - Mental Status Exam Alert and Oriented to: Time, Place, Person Cognitive Function: Good Patient Appearance: Disheveled Mood: Withdrawn, Hopeful Affect: Appropriate, Normal Range Patient Behavior: Fatigued, Appropriate (friendly), Cooperative Speech Pattern: Clear, Appropriate Voice Loudness: Normal Thought Process: Intact, Goal Oriented Thought Disorder: Not Present Hallucinations: Denies Suicidal Ideation: Denies Homicidal Ideation: Denies Insight/Judgement: Poor Sleep: Well Appetite: Good Gait/Station: Normal Psychiatric Findings - Problem List ([place] 1, 2,3) (1) Alcohol dependence with uncomplicated withdrawal Current Visit: Yes Status: Acute (2) Cocaine dependence Current Visit: Yes Status: Chronic Qualifiers: Substance use status: uncomplicated Qualified Code(s): F14.20 - Cocaine dependence, uncomplicated (3) Nicotine dependence Current Visit: Yes Status: Chronic Qualifiers: Nicotine product type: cigarettes Substance use status: uncomplicated Qualified Code(s): F17.210 - Nicotine dependence, cigarettes, uncomplicated (4) History of posttraumatic stress disorder (PTSD) Current Visit: Yes Status: Chronic Comment: Non-compliant with medications. (5) History of depression Current Visit: Yes Status: Chronic Comment: Non-compliant with medications. (6) Non-compliance Current Visit: Yes Status: Chronic - Initial Treatment Plan Initial Treatment Plan: Records ([facility]) are revisited. Psychoeducation. Sleep hygiene. Detoxification. Support. AA meetings. Observation.
[2019-05-15 12:39] LABS: HEMATOCRIT 42.8 % (35.4-49); HEMOGLOBIN 14.3 GM/dL (11.7-16.9); MCH 30.1 pg (25.7-33.7); MCHC 33.4 g/dl (32.0-35.9); MEAN PLT VOLUME 9.4 fl (7.5-11.1); PLATELET COUNT 259 K/MM3 (134-434); RBC 4.75 M/mm3 (4.00-5.60); RDW 13.8 % (11.9-15.9); WHITE BLOOD COUNT 6.4 K/mm3 (4.0-10.0)
[2019-05-15 13:01] LABS: ALBUMIN 3.3 g/dl (3.4-5.0); BILIRUBIN,TOTAL 0.4 mg/dL (0.2-1); BLOOD UREA NITROGEN 11.3 mg/dL (7-18); CALCIUM 8.7 mg/dL (8.5-10.1); POTASSIUM 4.2 mmol/L (3.5-5.1); TOT PROT 5.9 g/dl (6.4-8.2)
[2019-05-15] MEDS: METHOCARBAMOL 500 MG TABLET PO PRN ×2 (15:38→22:07)
[2019-05-15] MEDS: THIAMINE HCL 100 MG TABLET (FP) PO SCH (22:05)
[2019-05-16] MEDS: chlordiazePOXIDE HCL 25 MG CAPSULE PO SCH ×4 (06:25→22:00)
[2019-05-16] MEDS: PRENATAL VITAMINS W/ FOLIC ACID TABLET (FP) PO SCH (10:17)
[2019-05-16] MEDS: METHOCARBAMOL 500 MG TABLET PO PRN ×2 (10:19→17:31)
--- NOTE | 2019-05-16 12:27 | PN ---
[facility] CIWA - CIWA Score Nausea/Vomitin-Mild Nausea/No Vomiting Muscle Tremors: 2 Anxiety: 3 Agitation: 1-Slight > Activity Paroxysmal Sweats: 2 Orientation: 0-Oriented Tacttile Disturbances: 0-None Auditory Disturbances: 0-None Visual Disturbances: 0-None Headache: 0-None Present CIWA-Ar Total Score: 9 S Progress Note (SOAP) Subjective: 54 years old male admitted on 05/14/19 for alcohol withdrawal sx management treating with libirum detox regimen ate breakfast in day with peers discuss aftercare with staff patient determines to go through recovery process Objective: 05/16/19 12:33 Vital Signs Temperature 96.9 F L 05/16/19 09:20 Pulse Rate 72 05/16/19 09:20 Respiratory Rate 18 05/16/19 09:20 Blood Pressure 126/67 05/16/19 09:20 O2 Sat by Pulse Oximetry (%) Laboratory Last Values WBC 6.4 K/mm3 (4.0-10.0) 05/15/19 07:30 RBC 4.75 M/mm3 (4.00-5.60) 05/15/19 07:30 Hgb 14.3 GM/dL (11.7-16.9) 05/15/19 07:30 Hct 42.8 % (35.4-49) 05/15/19 07:30 MCV 90.0 fl (80-96) 05/15/19 07:30 MCH 30.1 pg (25.7-33.7) 05/15/19 07:30 MCHC 33.4 g/dl (32.0-35.9) 05/15/19 07:30 RDW 13.8 % (11.9-15.9) 05/15/19 07:30 Plt Count 259 K/MM3 (134-434) 05/15/19 07:30 MPV 9.4 fl (7.5-11.1) 05/15/19 07:30 Sodium 142 mmol/L (136-145) 05/15/19 07:30 Potassium 4.2 mmol/L (3.5-5.1) 05/15/19 07:30 Chloride 110 mmol/L (98-107) H 05/15/19 07:30 Carbon Dioxide 29 mmol/L (21-32) 05/15/19 07:30 Anion Gap 3 MMOL/L (8-16) L 05/15/19 07:30 BUN 11.3 mg/dL (7-18) 05/15/19 07:30 Creatinine 1.0 mg/dL (0.55-1.3) 05/15/19 07:30 Est GFR (CKD-EPI)AfAm 98.46 05/15/19 07:30 Est GFR (CKD-EPI)NonAf 84.95 05/15/19 07:30 Random Glucose 89 mg/dL (74-106) 05/15/19 07:30 Calcium 8.7 mg/dL (8.5-10.1) 05/15/19 07:30 Total Bilirubin 0.4 mg/dL (0.2-1) 05/15/19 07:30 AST 14 U/L (15-37) L 05/15/19 07:30 ALT 20 U/L (13-61) 05/15/19 07:30 Alkaline Phosphatase 52 U/L (45-117) 05/15/19 07:30 Total Protein 5.9 g/dl (6.4-8.2) L 05/15/19 07:30 Albumin 3.3 g/dl (3.4-5.0) L 05/15/19 07:30 RPR Titer Nonreactive (NONREACTIVE) 05/15/19 07:30 HIV 1&2 Antibody Screen Negative 05/15/19 07:30 HIV P24 Antigen Negative 05/15/19 07:30 lab noted Assessment: 05/16/19 12:34 alcohol withdrawal Plan: libirum regimen
[2019-05-16] MEDS: THIAMINE HCL 100 MG TABLET (FP) PO SCH (22:00)
[2019-05-17] MEDS ORDERED: chlordiazePOXIDE HCL 10 MG CAPSULE PO PRN
[2019-05-17] MEDS ORDERED: chlordiazePOXIDE HCL 10 MG CAPSULE PO SCH (05:00)
[2019-05-17] MEDS: PRENATAL VITAMINS W/ FOLIC ACID TABLET (FP) PO SCH (09:11)
[2019-05-17 09:15] VITALS: BP 94/55; PULSE 71; TEMP 97.4
--- NOTE | 2019-05-17 14:11 | DS ---
[facility] Detox Discharge Summary Admission Date: 05/14/19 Discharge Date: 05/17/19 - History Present History: Alcohol Dependence Additional Comments: 54 years old male admitted on 05/16/19 for alcohol withdrawal sx management treated with librium detox regimen patient tolerated well alert oriented x 3 cardiac s1s2 regular rate rhythm respiratory clear lungs bilaterally on auscultation skin warm and dry Pertinent Past History: patient prefers to leave the detox today as per estimated discharge date of patient wants to go to social service for housing interview today case discussed with the nurse routine discharge is appropriate - Physical Exam Results Vital Signs: Vital Signs Temperature 97.4 F L 05/17/19 08:30 Pulse Rate 71 05/17/19 08:30 Respiratory Rate 16 05/17/19 08:30 Blood Pressure 94/55 L 05/17/19 08:30 O2 Sat by Pulse Oximetry (%) Pertinent Admission Physical Exam Findings: alcohol withdrawal Laboratory Last Values WBC 6.4 K/mm3 (4.0-10.0) 05/15/19 07:30 RBC 4.75 M/mm3 (4.00-5.60) 05/15/19 07:30 Hgb 14.3 GM/dL (11.7-16.9) 05/15/19 07:30 Hct 42.8 % (35.4-49) 05/15/19 07:30 MCV 90.0 fl (80-96) 05/15/19 07:30 MCH 30.1 pg (25.7-33.7) 05/15/19 07:30 MCHC 33.4 g/dl (32.0-35.9) 05/15/19 07:30 RDW 13.8 % (11.9-15.9) 05/15/19 07:30 Plt Count 259 K/MM3 (134-434) 05/15/19 07:30 MPV 9.4 fl (7.5-11.1) 05/15/19 07:30 Sodium 142 mmol/L (136-145) 05/15/19 07:30 Potassium 4.2 mmol/L (3.5-5.1) 05/15/19 07:30 Chloride 110 mmol/L (98-107) H 05/15/19 07:30 Carbon Dioxide 29 mmol/L (21-32) 05/15/19 07:30 Anion Gap 3 MMOL/L (8-16) L 05/15/19 07:30 BUN 11.3 mg/dL (7-18) 05/15/19 07:30 Creatinine 1.0 mg/dL (0.55-1.3) 05/15/19 07:30 Est GFR (CKD-EPI)AfAm 98.46 05/15/19 07:30 Est GFR (CKD-EPI)NonAf 84.95 05/15/19 07:30 Random Glucose 89 mg/dL (74-106) 05/15/19 07:30 Calcium 8.7 mg/dL (8.5-10.1) 05/15/19 07:30 Total Bilirubin 0.4 mg/dL (0.2-1) 05/15/19 07:30 AST 14 U/L (15-37) L 05/15/19 07:30 ALT 20 U/L (13-61) 05/15/19 07:30 Alkaline Phosphatase 52 U/L (45-117) 05/15/19 07:30 Total Protein 5.9 g/dl (6.4-8.2) L 05/15/19 07:30 Albumin 3.3 g/dl (3.4-5.0) L 05/15/19 07:30 RPR Titer Nonreactive (NONREACTIVE) 05/15/19 07:30 HIV 1&2 Antibody Screen Negative 05/15/19 07:30 HIV P24 Antigen Negative 05/15/19 07:30 lab noted - Treatment Hospital Course: Detox Protocol Followed, Detoxed Safely, Responded well, Discharged Condition Good, Rehab Referral Accepted Patient has Accepted a Rehab Referral to: [facility] - Medication Discharge Medications: Ambulatory Orders Quetiapine Fumarate [Seroquel -] 400 mg PO HS 08/03/18 Sertraline HCl [Zoloft] 100 mg PO DAILY 08/03/18 - Diagnosis (1) Alcohol dependence with uncomplicated withdrawal Status: Acute (2) Substance induced mood disorder Status: Suspected (3) Hepatitis C Status: Chronic Qualifiers: Viral hepatitis chronicity: chronic Hepatic coma status: without hepatic coma Qualified Code(s): B18.2 - Chronic viral hepatitis C (4) Nicotine dependence Status: Acute Qualifiers: Nicotine product type: cigarettes Substance use status: in withdrawal Qualified Code(s): F17.213 - Nicotine dependence, cigarettes, with withdrawal (5) Positive PPD Status: Resolved (6) Substance induced mood disorder Status: Suspected (7) History of syphilis Status: Chronic - AMA Did Patient Leave Against Medical Advice: No CIWA Score - CIWA Score Nausea/Vomitin-No Nausea/No Vomiting Muscle Tremors: 2 Anxiety: 2 Agitation: 0-Normal Activity Paroxysmal Sweats: 1-Minimal Palms Moist Orientation: 0-Oriented Tacttile Disturbances: 0-None Auditory Disturbances: 0-None Visual Disturbances: 0-None Headache: 0-None Present CIWA-Ar Total Score: 5
[2019-05-18] MEDS ORDERED: chlordiazePOXIDE HCL 10 MG CAPSULE PO SCH (05:00)
[2019-05-19] MEDS ORDERED: chlordiazePOXIDE HCL 10 MG CAPSULE PO ONE (05:00)
== END 2019-05-17 08:30 | disposition home or self-care (01) | DRG 774 ==
LOC: YASAS 13:15 → Y3N 15:34
PROVIDERS: ADMIT Allergy & Immunology; ATTEND Allergy & Immunology
PROC: HZ2ZZZZ Detoxification Services for Substance Abuse Treatment (ICD-10-PCS; principal; 2019-05-14)
DX: F10.230 Alcohol dependence with withdrawal, uncomplicated (principal); F14.20 Cocaine dependence, uncomplicated; F17.213 Nicotine dependence, cigarettes, with withdrawal; F19.24 Other psychoactive substance dependence with psychoactive substance-induced mood disorder; F43.10 Post-traumatic stress disorder, unspecified; R76.11 Nonspecific reaction to tuberculin skin test without active tuberculosis; B18.2 Chronic viral hepatitis C; Z87.438 Personal history of other diseases of male genital organs; Z91.19 Patient's noncompliance with other medical treatment and regimen
CPT/HCPCS: 36415; 71046-TC-FY; 80053; 85027; 86593; 87389

== ENCOUNTER 2019-06-12 10:50 | Inpatient (IN) | payer OTHER ==
[2019-06-12 11:50] VITALS: BMI 21.4
--- NOTE | 2019-06-12 12:12 | HP ---
CIWA Score Nausea/Vomitin Muscle Tremors: 3 Anxiety: 3 Agitation: 1-Slight > Activity Paroxysmal Sweats: No Perspiration Orientation: 1-Uncertain about Date Tacttile Disturbances: 1-Very Mild Itch/Numbness Auditory Disturbances: 1-Very Mild Visual Disturbances: 1-Very Mild Sensitivity Headache: 3-Moderate CIWA-Ar Total Score: 16 - Admission Criteria OASAS Guidelines: Admission for Medically Managed Detox: Requires at least one of the followin. CIWA greater than 12 2. Seizures within the past 24 hours 3. Delirium tremens within the past 24 hours 4. Hallucinations within the past 24 hours 5. Acute intervention needed for co occurring medical disorder 6. Acute intervention needed for co occurring psychiatric disorder 7. Severe withdrawal that cannot be handled at a lower level of care (continued vomiting, continued diarrhea, abnormal vital signs) requiring intravenous medication and/or fluids 8. 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 related to withdrawal) Psych: Yes: Addictions, Anxiety, Depression, Other (PTSD) Musculoskeletal: Yes: Chronic low back pain - Past Surgical History Past Surgical History: Yes: Appendectomy - Smoking History Smoking history: Current every day smoker Have you smoked in the past 12 months: Yes Aproximately how many cigarettes per day: 20 - Alcohol/Substance Use Hx Alcohol Use: Yes History of Substance Use: reports: Cocaine - Social History Usual Living Arrangement: Yes: Alone, Other (lives in [facility]) ADL: Support Services (gets welfare) Admission ROS S - HPI Chief Complaint: This time, I need to do it, I'm tired, I have to be here to stop. Allergies/Adverse Reactions: Allergies Allergy/AdvReac Type Severity Reaction Status Date / Time No Known Allergies Allergy Verified 05/14/19 13:23 History of Present Illness: 54 yo gentleman here for detox from alcohol, also using crack. This is one of multiple admissions for treatment. He is not on disability, lives in [facility] but has been interviewed and hopes to get subsidized housing. He lives alone. History of black outs, no seizures, states he gets very sick with vomiting and shakes if he does not drink - interested in inpatient rehab as ' too tempted' when outpatient. Has not been in an emergency room lately. Has never tried Vivitrol injection or MAT for alcohol. Patient is currently declining his psych meds but willing to talk to psych about it. Denies feeling suicidal or depressed currently. Patient also declines nicotine cessation products which give him nightmares. Exam Limitations: No Limitations - Ebola screening Have you traveled outside of the country in the last 21 days: No (N) Have you had contact with anyone from an Ebola affected area: No Do you have a fever: No - Review of Systems Constitutional: Loss of Appetite, Malaise, Changes in sleep, Weakness, Unexplained wgt Loss EENT: reports: Blurred Vision Respiratory: reports: No Symptoms reported Cardiac: reports: No Symptoms Reported GI: reports: Nausea, Poor Appetite, Abdominal cramping : reports: Frequency Musculoskeletal: reports: Back Pain Integumentary: reports: Dryness Neuro: reports: Headache, Numbness, Tremors Endocrine: reports: No Symptoms Reported Hematology: reports: No Symptoms Reported Psychiatric: reports: Judgement Intact, Mood/Affect Appropiate, Anxious Other Systems: Reviewed and Negative Patient History - Patient Medical History Hx Anemia: No Hx Asthma: No Hx Chronic Obstructive Pulmonary Disease (COPD): No Hx Cancer: No Hx Cardiac Disorders: No Hx Congestive Heart Failure: No Hx Hypertension: No Hx Hypercholesterolemia: No Hx Pacemaker: No HX Cerebrovascular Accident: No Hx Seizures: No Hx Dementia: No Hx Diabetes: No Hx Gastrointestinal Disorders: No Hx Liver Disease: No Hx Genitourinary Disorders: No Hx Sexually Transmitted Disorders: No Hx Renal Disease (ESRD): No Hx Thyroid Disease: No Hx Human Immunodeficiency Virus (HIV): No Hx Hepatitis C: Yes (No viral load) Hx Depression: Yes (on meds) Hx Suicide Attempt: Yes (several months ago - tried to overdose with crack/ fentanyl ) Hx Bipolar Disorder: Yes (sees psych, never hospitalized) Hx Schizophrenia: No - Patient Surgical History Past Surgical History: Yes Hx Neurologic Surgery: No Hx Cataract Extraction: No Hx Cardiac Surgery: No Hx Lung Surgery: No Hx Breast Surgery: No Hx Breast Biopsy: No Hx Abdominal Surgery: No Hx Appendectomy: Yes (In 1999) Hx Cholecystectomy: No Hx Genitourinary Surgery: No Hx Section: No Hx Orthopedic Surgery: No Hx Hysterectomy: No Anesthesia Reaction: No - PPD History Previous Implant?: Yes Documented Results: Positive w/o proof Implanted On Prior [facility] Admission?: No Date: 05/14/19 (CXR negative) Results: CXR(-) 05/14/19 PPD to be Administered?: No - Reproductive History Patient is a Female of Child Bearing Age (11 -55 yrs old): No - Smoking Cessation Smoking history: Current every day smoker Have you smoked in the past 12 months: Yes Aproximately how many cigarettes per day: 20 Cigars Per Day: 0 Hx Chewing Tobacco Use: No Initiated information on smoking cessation: Yes 'Breaking Loose' booklet given: 06/12/19 (give on floor) - Substance & Tx. History Hx Alcohol Use: Yes Hx Substance Use: Yes Substance Use Type: Alcohol, Cocaine Hx Substance Use Treatment: Yes - Substances abused Alcohol Substance route: Oral Frequency: Daily Amount used: 1/2 pint vodka /2 pack of 12 oz beer Age of first use: 19 Date of last use: 06/11/19 Cocaine Substance route: Smoking Frequency: Daily Amount used: $100 Age of first use: Date of last use: 06/11/19 Admission Physical Exam [facility] - Vital Signs Vital Signs: Vital Signs - 24 hr 06/12/19 11:43 Temperature 97 F L Pulse Rate 79 Respiratory 19 Rate Blood Pressure 105/64 - Physical General Appearance: Yes: Nourished, Appropriately Dressed, Moderate Distress, Tremorous, Anxious HEENTM: Yes: Hearing grossly Normal, Normal ENT Inspection, Normocephalic, Normal Voice, Other (poor dentition) Respiratory: Yes: Normal Breath Sounds, No Respiratory Distress Neck: Yes: No masses,lesions,Nodules Breast: Yes: Breast Exam Deferred Cardiology: Yes: Regular Rhythm, Regular Rate Abdominal: Yes: Flat, Soft Genitourinary: Yes: Frequency Back: Yes: Normal Inspection Musculoskeletal: Yes: full range of Motion, Gait Steady Extremities: Yes: Normal Inspection, Normal Range of Motion, Tremors 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: Yes: Alert, Motor Strength 5/5, Normal Mood/Affect, Normal Response, Numbness (fingers get numb) Integumentary: Yes: Normal Color, Dry (dry, flakey both legs), Warm Lymphatic: Yes: Within Normal Limits - Diagnostic (1) Alcohol dependence with uncomplicated withdrawal Current Visit: Yes Status: Acute (2) Cocaine dependence Current Visit: Yes Status: Chronic Qualifiers: Substance use status: uncomplicated Qualified Code(s): F14.20 - Cocaine dependence, uncomplicated (3) Nicotine dependence Current Visit: Yes Status: Acute Qualifiers: Nicotine product type: cigarettes Substance use status: in withdrawal Qualified Code(s): F17.213 - Nicotine dependence, cigarettes, with withdrawal (4) At risk for dehydration due to poor fluid intake Current Visit: Yes Status: Chronic (5) Positive PPD Current Visit: Yes Status: Resolved Comment: Last CXR 05/14/19 - Neg (6) Dry skin Current Visit: Yes Status: Chronic Cleared for Admission S - Detox or Rehab [facility] Level of Care: Medically Managed Detox Regimen/Protocol: Librium Breathalyzer - Breathalyzer Breathalyzer: 0 POC Urine test - Test device test lot number: not applicable Urine Drug Screen - Test Device Lot number: [id number] Expiration date: 12/16/20 - Control Is test valid?: Yes - Results Drug screen NEGATIVE: No Urine drug screen results: [facility]-Cocaine Inpatient Rehab Admission - Rehab Decision to Admit Inpatient rehab admission?: No
[2019-06-12] MEDS ORDERED: MENTHOL/PHENOL 1 EACH UD MM PRN (12:26)
[2019-06-12] MEDS ORDERED: MAGNESIUM HYDROX 2400MG/30ML ORAL SUSPENSION 30 ML CUP PO PRN (12:26)
[2019-06-12] MEDS ORDERED: chlordiazePOXIDE HCL 25 MG CAPSULE PO PRN (12:26)
[2019-06-12] MEDS ORDERED: MELATONIN 5 MG TABLETS PO PRN (12:26)
[2019-06-12] MEDS ORDERED: MAGNESIUM CITRATE 300 ML BOTTLE PO PRN (12:26)
[2019-06-12] MEDS ORDERED: hydrOXYzine PAMOATE 25 MG CAPSULE (FP) PO PRN (12:26)
[2019-06-12] MEDS ORDERED: MAG HYDROX/AL HYDROX/SIMETH 30 ML UNIT-DOSE CUP PO PRN (12:26)
[2019-06-12] MEDS ORDERED: ACETAMINOPHEN 325 MG TABLET (FP) PO PRN ×2 (12:26)
[2019-06-12] MEDS ORDERED: BISMUTH SUBSALICYLATE 524 MG/30 ML UD PO PRN (12:26)
[2019-06-12] MEDS ORDERED: COLLOIDAL OATMEAL 1 BAR EACH TP PRN (12:28)
[2019-06-12] MEDS ORDERED: AMMONIUM LACTATE 12% LOTION 225 GM BOTTLE TP PRN (13:09)
[2019-06-12] MEDS ORDERED: chlordiazePOXIDE HCL 25 MG CAPSULE PO ONE (13:15)
[2019-06-12] MEDS: chlordiazePOXIDE HCL 25 MG CAPSULE PO SCH ×2 (17:10→22:34)
[2019-06-12] MEDS: THIAMINE HCL 100 MG TABLET (FP) PO SCH (22:34)
[2019-06-13] MEDS: chlordiazePOXIDE HCL 25 MG CAPSULE PO SCH ×4 (06:30→22:37)
[2019-06-13] MEDS: PRENATAL VITAMINS W/ FOLIC ACID TABLET (FP) PO SCH (10:26)
[2019-06-13] MEDS: IBUPROFEN 400 MG TABLET (FP) PO PRN (10:27)
[2019-06-13 11:11] LABS: HEMATOCRIT 41.4 % (35.4-49); HEMOGLOBIN 13.8 GM/dL (11.7-16.9); MCH 29.8 pg (25.7-33.7); MCHC 33.3 g/dl (32.0-35.9); MEAN CELL VOLUME 89.5 fl (80-96); MEAN PLT VOLUME 9.3 fl (7.5-11.1); PLATELET COUNT 262 K/MM3 (134-434); RBC 4.62 M/mm3 (4.00-5.60); RDW 13.9 % (11.9-15.9); WHITE BLOOD COUNT 6.2 K/mm3 (4.0-10.0)
[2019-06-13 11:20] LABS: BILIRUBIN,TOTAL 0.5 mg/dL (0.2-1); BLOOD UREA NITROGEN 10.3 mg/dL (7-18); CALCIUM 8.5 mg/dL (8.5-10.1); POTASSIUM 3.9 mmol/L (3.5-5.1); TOT PROT 5.7 g/dl (6.4-8.2)
--- NOTE | 2019-06-13 12:24 | CONSULT ---
[facility] Psychiatric Consult - Data Date of interview: 06/13/19 Admission source: Self-referred Identifying data: Mr Reyes is a 54 years old single male, unemployed receving public assistance, living in a [facility] center seeking detox treatment for alcohol and cocaine Substance Abuse History: Reports history of alcohol and crack cocaine use. Refer to addiction counselor's summary for further information Medical History: Significant for hepatitis C, sicke cell anemia, PPD+, and history of treatment for syphilis and surgery for appendectomy in 1999. Smokes cigarettes 1 ppd Psychiatric History: Patient is well known from multiple admissions in this facility. Historical narrative remains consistent. He reports that his first psychiatric contact was in 2013 when he saw a psychiatrist at [facility] in the [place]. Reports that he was diagnosed with MDD, Anxiety and PTSD and started on medications. Reports that he has been receiving outpatient treatment at the same clinic since and he is currently prescribed Zoloft 100 mg/ day, Seroquel 400 mg/hs and Klonopin 2 mg/day. Told information writer that eventhough he is adherent to OPD care he however does not take medications faithfully due to his addiction. Told information writer that his most outpatient psychiatric visit was on and was prescribed same medications. Denies previous psychiatric hospitalization. However, reports 2 previous suicidal attempts via overdose and most recently with a gun years ago. At present, denies experiencing depressive symptoms, S/H ideations. However, reports leeping poorly. Patient is unwilling to resume medication during this admission Physical/Sexual Abuse/Trauma History: Denies history of emotional, physical or sexual abuse as well as DV relatiomship. No service Psychiatric Findings - Problem List ([place] 1, 2,3) (1) Depressive disorder Current Visit: No Status: Chronic (2) MDD (major depressive disorder) Current Visit: Yes Status: Ruled-out (3) PTSD (post-traumatic stress disorder) Current Visit: Yes Status: Chronic (4) Substance-induced sleep disorder Current Visit: No Status: Acute (5) Alcohol dependence with uncomplicated withdrawal Current Visit: Yes Status: Acute (6) Cocaine dependence Current Visit: Yes Status: Acute Qualifiers: Substance use status: uncomplicated Qualified Code(s): F14.20 - Cocaine dependence, uncomplicated (7) Nicotine dependence Current Visit: Yes Status: Acute Qualifiers: Nicotine product type: cigarettes Substance use status: in withdrawal Qualified Code(s): F17.213 - Nicotine dependence, cigarettes, with withdrawal (8) Positive PPD Current Visit: Yes Status: Resolved Comment: Last CXR 05/14/19 - Neg (9) Hepatitis C Current Visit: No Status: Chronic Qualifiers: Viral hepatitis chronicity: chronic Hepatic coma status: without hepatic coma Qualified Code(s): B18.2 - Chronic viral hepatitis C Comment: newly diagnosed - not treated (10) History of syphilis Current Visit: No Status: Resolved Comment: treated in past - Initial Treatment Plan Initial Treatment Plan: Continue inpatient detoxification
--- NOTE | 2019-06-13 16:56 | PN ---
S CIWA - CIWA Score Nausea/Vomitin-Mild Nausea/No Vomiting Muscle Tremors: 3 Anxiety: 3 Agitation: 3 Paroxysmal Sweats: 3 Orientation: 0-Oriented Tacttile Disturbances: 0-None Auditory Disturbances: 0-None Visual Disturbances: 0-None Headache: 0-None Present CIWA-Ar Total Score: 13 S Progress Note (SOAP) Subjective: Sweating, chills, tremor, interrupted sleep Objective: 06/13/19 16:54 Last Vital Signs Temp Pulse Resp BP Pulse Ox 98.1 F 70 18 110/62 06/13/19 14:36 06/13/19 14:36 06/13/19 14:36 06/13/19 14:36 Laboratory Tests 06/13/19 06/13/19 06/13/19 06:50 06:50 06:50 WBC 6.2 RBC 4.62 Hgb 13.8 Hct 41.4 MCV 89.5 MCH 29.8 MCHC 33.3 RDW 13.9 Plt Count 262 MPV 9.3 Sodium 142 Potassium 3.9 Chloride 109 H Carbon Dioxide 31 Anion Gap 2 L BUN 10.3 Creatinine 1.0 Est GFR (CKD-EPI)AfAm 98.46 Est GFR (CKD-EPI)NonAf 84.95 Random Glucose 93 Calcium 8.5 Total Bilirubin 0.5 AST 15 ALT 19 Alkaline Phosphatase 58 Total Protein 5.7 L Albumin 3.0 L RPR Titer Nonreactive Labs reviewed Assessment: 06/13/19 16:55 Withdrawal sxs Plan: Continue detox Encouraged PO water intake
[2019-06-13] MEDS: THIAMINE HCL 100 MG TABLET (FP) PO SCH (22:37)
[2019-06-14] MEDS: chlordiazePOXIDE HCL 25 MG CAPSULE PO SCH ×4 (05:25→22:19)
[2019-06-14] MEDS: PRENATAL VITAMINS W/ FOLIC ACID TABLET (FP) PO SCH (10:40)
[2019-06-14] MEDS: METHOCARBAMOL 500 MG TABLET PO PRN ×2 (10:41→17:39)
--- NOTE | 2019-06-14 13:32 | PN ---
S CIWA - CIWA Score Nausea/Vomitin-No Nausea/No Vomiting Muscle Tremors: 3 Anxiety: 2 Agitation: 2 Paroxysmal Sweats: 2 Orientation: 0-Oriented Tacttile Disturbances: 0-None Auditory Disturbances: 0-None Visual Disturbances: 0-None Headache: 0-None Present CIWA-Ar Total Score: 9 BHS Progress Note (SOAP) Subjective: sweats shakes interrupted sleep body aches Objective: 06/14/19 13:31 Vital Signs Temperature 98.2 F 06/14/19 13:11 Pulse Rate 82 06/14/19 13:11 Respiratory Rate 18 06/14/19 13:11 Blood Pressure 117/71 06/14/19 13:11 O2 Sat by Pulse Oximetry (%) Laboratory Tests 06/13/19 06/13/19 06/13/19 06:50 06:50 06:50 WBC 6.2 RBC 4.62 Hgb 13.8 Hct 41.4 MCV 89.5 MCH 29.8 MCHC 33.3 RDW 13.9 Plt Count 262 MPV 9.3 Sodium 142 Potassium 3.9 Chloride 109 H Carbon Dioxide 31 Anion Gap 2 L BUN 10.3 Creatinine 1.0 Est GFR (CKD-EPI)AfAm 98.46 Est GFR (CKD-EPI)NonAf 84.95 Random Glucose 93 Calcium 8.5 Total Bilirubin 0.5 AST 15 ALT 19 Alkaline Phosphatase 58 Total Protein 5.7 L Albumin 3.0 L RPR Titer Nonreactive aaox3 ambulating no acute distress Assessment: 06/14/19 13:32 withdrawals sx Plan: continue detox increase fluids
[2019-06-14] MEDS: THIAMINE HCL 100 MG TABLET (FP) PO SCH (22:19)
[2019-06-15] MEDS ORDERED: chlordiazePOXIDE HCL 10 MG CAPSULE PO PRN
[2019-06-15] MEDS: chlordiazePOXIDE HCL 10 MG CAPSULE PO SCH ×4 (05:53→22:48)
[2019-06-15] MEDS: PRENATAL VITAMINS W/ FOLIC ACID TABLET (FP) PO SCH (10:23)
[2019-06-15] MEDS: METHOCARBAMOL 500 MG TABLET PO PRN ×2 (10:24→17:23)
--- NOTE | 2019-06-15 12:19 | PN ---
S CIWA - CIWA Score Nausea/Vomitin-No Nausea/No Vomiting Muscle Tremors: 2 Anxiety: 1-Mildly Anxious Agitation: 2 Paroxysmal Sweats: 1-Minimal Palms Moist Orientation: 0-Oriented Tacttile Disturbances: 0-None Auditory Disturbances: 0-None Visual Disturbances: 0-None Headache: 0-None Present CIWA-Ar Total Score: 6 BHS Progress Note (SOAP) Subjective: restless sweats Objective: 06/15/19 12:19 Vital Signs Temperature 98.4 F 06/15/19 09:23 Pulse Rate 64 06/15/19 09:23 Respiratory Rate 17 06/15/19 09:23 Blood Pressure 111/54 L 06/15/19 09:23 O2 Sat by Pulse Oximetry (%) aaox3 ambulating no acute distress Assessment: 06/15/19 12:19 withdrawals Plan: continue detox
[2019-06-15] MEDS: THIAMINE HCL 100 MG TABLET (FP) PO SCH (22:48)
[2019-06-16] MEDS: chlordiazePOXIDE HCL 10 MG CAPSULE PO SCH ×2 (06:08→17:12)
[2019-06-16] MEDS: METHOCARBAMOL 500 MG TABLET PO PRN ×2 (06:08→17:14)
[2019-06-16] MEDS: PRENATAL VITAMINS W/ FOLIC ACID TABLET (FP) PO SCH (10:05)
--- NOTE | 2019-06-16 12:20 | PN ---
S CIWA - CIWA Score Nausea/Vomitin-No Nausea/No Vomiting Muscle Tremors: 2 Anxiety: 1-Mildly Anxious Agitation: 1-Slight > Activity Paroxysmal Sweats: 1-Minimal Palms Moist Orientation: 0-Oriented Tacttile Disturbances: 0-None Auditory Disturbances: 0-None Visual Disturbances: 0-None Headache: 0-None Present CIWA-Ar Total Score: 5 BHS Progress Note (SOAP) Subjective: feeling better agitation Objective: 06/16/19 12:19 Vital Signs Temperature 97.7 F 06/16/19 09:26 Pulse Rate 67 06/16/19 09:26 Respiratory Rate 18 06/16/19 09:26 Blood Pressure 115/63 06/16/19 09:26 O2 Sat by Pulse Oximetry (%) aaox3 ambulating no acute distress Assessment: 06/16/19 12:21 mild withdrawals Plan: d/c in am
[2019-06-16] MEDS: IBUPROFEN 400 MG TABLET (FP) PO PRN (21:10)
[2019-06-16] MEDS: THIAMINE HCL 100 MG TABLET (FP) PO SCH (21:10)
[2019-06-16 21:54] VITALS: BP 120/69
[2019-06-17] MEDS ORDERED: chlordiazePOXIDE HCL 10 MG CAPSULE PO ONE (05:00)
--- NOTE | 2019-06-17 08:44 | DS ---
[facility] Detox Discharge Summary Admission Date: 06/12/19 Discharge Date: 06/17/19 - History Present History: Alcohol Dependence, Cocaine Dependence - Physical Exam Results Vital Signs: Vital Signs Temperature 98.2 F 06/16/19 21:54 Pulse Rate 69 06/16/19 21:54 Respiratory Rate 18 06/17/19 03:30 Blood Pressure 120/69 06/16/19 21:54 O2 Sat by Pulse Oximetry (%) Pertinent Admission Physical Exam Findings: Vital Signs Temperature 98.2 F 06/16/19 21:54 Pulse Rate 69 06/16/19 21:54 Respiratory Rate 18 06/17/19 03:30 Blood Pressure 120/69 06/16/19 21:54 O2 Sat by Pulse Oximetry (%) Laboratory Tests 06/13/19 06/13/19 06/13/19 06:50 06:50 06:50 WBC 6.2 RBC 4.62 Hgb 13.8 Hct 41.4 MCV 89.5 MCH 29.8 MCHC 33.3 RDW 13.9 Plt Count 262 MPV 9.3 Sodium 142 Potassium 3.9 Chloride 109 H Carbon Dioxide 31 Anion Gap 2 L BUN 10.3 Creatinine 1.0 Est GFR (CKD-EPI)AfAm 98.46 Est GFR (CKD-EPI)NonAf 84.95 Random Glucose 93 Calcium 8.5 Total Bilirubin 0.5 AST 15 ALT 19 Alkaline Phosphatase 58 Total Protein 5.7 L Albumin 3.0 L RPR Titer Nonreactive aaox3 ambulating no acute distress - Treatment Hospital Course: Detox Protocol Followed, Detoxed Safely, Responded well, Discharged Condition Good, Rehab Referral Accepted - Medication Discharge Medications: Ambulatory Orders Quetiapine Fumarate [Seroquel -] 400 mg PO HS 08/03/18 Sertraline HCl [Zoloft] 100 mg PO DAILY 08/03/18 Ferrous Gluconate [Fergon -] 324 mg PO DAILY 06/12/19 - Diagnosis (1) Alcohol dependence with uncomplicated withdrawal Status: Chronic (2) Cocaine dependence Status: Chronic Qualifiers: Substance use status: uncomplicated Qualified Code(s): F14.20 - Cocaine dependence, uncomplicated (3) Nicotine dependence Status: Chronic Qualifiers: Nicotine product type: cigarettes Substance use status: uncomplicated Qualified Code(s): F17.210 - Nicotine dependence, cigarettes, uncomplicated (4) PTSD (post-traumatic stress disorder) Status: Chronic (5) Positive PPD Status: Resolved (6) MDD (major depressive disorder) Status: Ruled-out (7) Anxiety and depression Status: Chronic (8) Cocaine dependence Status: Chronic Qualifiers: Substance use status: uncomplicated Qualified Code(s): F14.20 - Cocaine dependence, uncomplicated (9) Depressive disorder Status: Chronic (10) Depressive disorder Status: Chronic (11) Hepatitis C Status: Chronic Qualifiers: Viral hepatitis chronicity: chronic Hepatic coma status: without hepatic coma Qualified Code(s): B18.2 - Chronic viral hepatitis C (12) History of depression Status: Chronic (13) History of posttraumatic stress disorder (PTSD) Status: Chronic (14) Hypotension Status: Chronic (15) Non-compliance Status: Chronic (16) PTSD (post-traumatic stress disorder) Status: Chronic (17) Sickle cell disease Status: Chronic Qualifiers: Sickle-cell associated disorders: with unspecified crisis Qualified Code(s) : D57.00 - Hb-SS disease with crisis, unspecified; D57.0 - Hb-SS disease with crisis (18) Tinea pedis Status: Chronic Qualifiers: Laterality: bilateral Qualified Code(s): B35.3 - Tinea pedis (19) Depression (emotion) Status: Suspected Qualifiers: Depression Type: major depressive disorder Major depression recurrence: single episode Active/Remission status: in partial remission Qualified Code( s): F32.4 - Major depressive disorder, single episode, in partial remission (20) Substance induced mood disorder Status: Suspected (21) Substance induced mood disorder Status: Suspected (22) History of syphilis Status: Resolved (23) S/P appendectomy Status: Resolved (24) MDD (major depressive disorder) Status: Ruled-out - AMA Did Patient Leave Against Medical Advice: No
[2019-06-17 08:47] VITALS: PULSE 58; TEMP 97.3
== END 2019-06-17 09:09 | disposition home or self-care (01) | DRG 774 ==
LOC: YASAS 10:50 → Y6N 13:08
PROVIDERS: ADMIT Allergy & Immunology; ATTEND Allergy & Immunology
PROC: HZ2ZZZZ Detoxification Services for Substance Abuse Treatment (ICD-10-PCS; principal; 2019-06-12)
DX: F10.230 Alcohol dependence with withdrawal, uncomplicated (principal); F14.20 Cocaine dependence, uncomplicated; F17.210 Nicotine dependence, cigarettes, uncomplicated; F43.10 Post-traumatic stress disorder, unspecified; F32.9 Major depressive disorder, single episode, unspecified; F41.9 Anxiety disorder, unspecified; F19.24 Other psychoactive substance dependence with psychoactive substance-induced mood disorder; I95.9 Hypotension, unspecified; B18.2 Chronic viral hepatitis C; D57.00 Hb-SS disease with crisis, unspecified; R63.8 Other symptoms and signs concerning food and fluid intake; L98.8 Other specified disorders of the skin and subcutaneous tissue; Z87.438 Personal history of other diseases of male genital organs; Z91.19 Patient's noncompliance with other medical treatment and regimen; Z91.5 Personal history of self-harm
CPT/HCPCS: 36415; 80053; 85027; 86593